=== PATIENT | male | born 1975 | race Caucasian/White ===

== ENCOUNTER 2019-08-14 08:16 | Observation (INO) | payer BC, SELFPAY ==
[2019-08-14] VITALS (25 sets, daily range): BP systolic 92–159; BP diastolic 44–116; PULSE 77–268; RESP 11–28; TEMP 36.4; O2SAT 95–99; BMI 65.9
--- NOTE | 2019-08-14 08:21 | ED_ITS ---
Entered by Melody Kan, acting as scribe for Omid Bang DO HPI - SOB/Dyspnea General: Chief Complaint: Chest Pain Stated Complaint: SOB Time Seen by Provider: 08/14/19 08:21 Source: patient and RN notes reviewed Mode of arrival: wheelchair Limitations: no limitations History of Present Illness: HPI Narrative: 44 yo male presents to ED with complaints of shortness of breath. He said he has been fighting chest and nasal congestion. He states it feels like his heart isn't beating right. He said he has shortness of breath when he is walking. He denies pain in his chest, describing it as burning in his chest. He said he usually sweats a lot anyway but he is sweating more than normal. He said these symptoms began this morning and he was weak. He said he felt fine yesterday, except for the congestion. MD elicited complaint: shortness of breath, cough, pain with inspiration, chest pain (burning) and anxiety Pertinent past history: other (HTN, heart surgery as a child) Onset (ago): hour(s) (1) Context: recent illness (chest and head congestion) Timing: constant Severity: severe Exacerbating factors: exertion, movement and coughing Relieving factors: nothing Known history of: other (HTN) Associated symptoms: Reports chest pain (described as burning), diaphoresis and palpitations Treatment prior to arrival: none Related Data: Home oxygen amount: none Review of Systems General: Reports: 10 or more systems reviewed and unremarkable except in HPI and below Const: Reports: diaphoresis Card: Reports: chest pain (described as burning) and palpitations [facility] ED PFSH: Social History Smoking and tobacco status: never smoked Physical Exam Const: COMMON NORMALS: oriented x3, no limitations, healthy appearing, alert and well nourished GENERAL APPEARANCE: in distress, anxious and diaphoretic HENMT: COMMON NORMALS: normocephalic, head/scalp atraumatic, hearing grossly normal bilaterally, external ears normal, EAC's normal, TM's normal bilaterally, external nose normal, nasal mucous membranes and turbinates normal, moist oral mucous membranes, oropharynx normal, dentition normal and gingiva normal HEAD & SCALP: normocephalic and atraumatic NOSE: external nose normal and nasal mu cous membranes and turbinates normal EXTERNAL EAR: Yes external ears normal EXTERNAL AUDITORY CANAL: EAC's normal TYMPANIC MEMBRANE: TM's normal bilaterally Eye: COMMON NORMALS: PERRL, EOMs intact bilaterally, conjunctivae normal, no scleral icterus, no papilledema, normal visual ortez by confrontation and fundi normal bilaterally CONJUNCTIVA: Yes conjunctivae normal PUPIL: Yes PERRL DIRECT OPHTHALMOSCOPY: Yes no papilledema and Yes fundi normal bilaterally Neck/C-Spine: COMMON NORMALS: full ROM, no lymphadenopathy, supple, no meningeal signs, no JVD, thyroid normal and no carotid bruits THYROID: thyroid normal Chest: COMMONS NORMALS: inspection of chest normal and palpation of chest normal Resp: COMMON NORMALS: no retractions, no use of accessory muscles, clear to auscultation bilaterally and percussion normal AUSCULTATION: clear to a uscultation bilaterally PERCUSSION: percussion normal Cardio: COMMON NORMALS: no JVD, regular rhythm, S1 normal heart sound, S2 normal heart sound, no gallops, no clicks, no murmurs, no rub and peripheral pulses 2+ throughout RHYTHM: regular rhythm HEART SOUNDS: S1 normal and S2 normal PERIPHERAL PULSES: pulses 2+ throughout GI: COMMON NORMALS: normal to inspection, nondistended, normoactive bowel sounds, soft to palpation, non-tender, no hepatosplenomegaly, no masses and no bruits PALPATION: Yes soft and Yes no hepatosplenomegaly : COMMON NORMALS: Yes no CVA tenderness BLADDER/KIDNEY EXAM: Yes no CVA tenderness Back/Pelvis: COMMON NORMALS: no CVA tenderness, thoracic and lumbar spine normal to inspection, no thoracic nor lumbar tenderness, thoraco-lumbar ROM normal and straight leg raise negative bilaterally Extremity: COMMON NORMALS: normal to inspection, full ROM, normal capillary refill, no joint enlargement, no clubbing, cyanosis or edema, no calf tenderness and no pedal edema Neuro: COMMON NORMALS: oriented x3 SENSORIUM/ORIENTATION: Yes alert MENINGEAL SIGNS: Yes no meningeal signs Skin: COMMON NORMALS: no rashes or lesions noted, no wounds, skin turgor normal, no jaundice, no petechiae and no mottling GENERAL SKIN EXAM: no rashes or lesions noted and turgor normal Course Vital Signs: Vital signs: Vital Signs Temperature 97.6 F 08/14/19 08:30 Pulse Rate 268 H 08/14/19 08:30 Respiratory Rate 22 H 08/14/19 08:30 Blood Pressure 92/44 08/14/19 08:30 Pulse Oximetry 96 08/14/19 08:30 MDM - SOB/Dyspnea Lab Data: Labs: Lab Results 08/14/19 08/14/19 08/14/19 Range/Units 08:31 08:31 08:31 WBC 10.9 H (4.0-10.0) 10^3/ uL RBC 5.78 H (4.1-5.3) 10^6/u L Hgb 13.9 (11.7-16.6) g/dL Hct 46.1 (42.0-52.0) % MCV 79.8 L (80-94) fL MCH 24.0 L (28.0-34.0) pg MCHC 30.2 (30.0-36.0) g/dL RDW 16.0 H (12.1-15.1) % Plt Count 422 H (130-400) 10^3/c mm MPV 10.2 (7.4-10.4) fL Neut % (Auto) 63.4 % Lymph % (Auto) 25.5 % [place] % (Auto) 6.4 % Eos % (Auto) 3.8 % Baso % (Auto) 0.5 % Neut # (Auto) 6.9 (1.8-7.7) 10^3/u L Lymph # (Auto) 2.8 (0.8-4.8) 10^3/u L Marathon # (Auto) 0.7 (0.2-0.9) 10^3/u L Eos # (Auto) 0.4 (0.0-0.8) 10^3/u L Baso # (Auto) 0.1 (0.0-0.1) 10^3/u L Nucleated RBC % (a uto) 0 % Nucleated RBCs # 0.0 /100WBC PT 13.40 H (10.5-13.3) SECO NDS INR 0.99 (0.8-1.2) Sodium 136 (136-145) mmol/L Potassium 3.7 (3.5-5.1) mmol/L Chloride 96 L (98-107) mmol/L Carbon Dioxide 24 (22-29) mmol/L Anion Gap 19.7 H (5-19) BUN 16 (6-20) mg/dL Creatinine 0.9 (0.7-1.2) mg/dL GFR Calculation 90.8 (90-130) mL/min Glucose 209 H (65-115) mg/dL Calcium 10.0 (8.5-10.5) mg/dL Total Bilirubin 0.3 (0.15-1.2) mg/dL AST 39 (0-40) U/L ALT 19 (0-41) U/L Alkaline Phosphata se 91 (40-130) IU/L Troponin T Baselin e (0-15) ng/mL Troponin T 120 Min constantin (0-15) ng/mL Delta Troponin T (0-10) ABS# NT-Pro-B Natriuret Pep 534 H (0-125) pg/mL Total Protein 8.5 (6.6-8.7) g/dL Albumin 4.1 (3.5-5.2) g/dL Globulin 4.4 (1.3-4.6) g/dL 08/14/19 08/14/19 Range/Units 08:31 10:33 WBC (4.0-10.0) 10^3/ uL RBC (4.1-5.3) 10^6/u L Hgb (11.7-16.6) g/dL Hct (42.0-52.0) % MCV (80-94) fL MCH (28.0-34.0) pg MCHC (30.0-36.0) g/dL RDW (12.1-15.1) % Plt Count (130-400) 10^3/c mm MPV (7.4-10.4) fL Neut % (Auto) % Lymph % (Auto) % Marathon % (Auto) % Eos % (Auto) % Baso % (Auto) % Neut # (Auto) (1.8-7.7) 10^3/u L Lymph # (Auto) (0.8-4.8) 10^3/u L Marathon # (Auto) (0.2-0.9) 10^3/u L Eos # (Auto) (0.0-0.8) 10^3/u L Baso # (Auto) (0.0-0.1) 10^3/u L Nucleated RBC % (a uto) % Nucleated RBCs # /100WBC PT (10.5-13.3) SECO NDS INR (0.8-1.2) Sodium (136-145) mmol/L Potassium (3.5-5.1) mmol/L Chloride (98-107) mmol/L Carbon Dioxide (22-29) mmol/L Anion Gap (5-19) BUN (6-20) mg/dL Creatinine (0.7-1.2) mg/dL GFR Calculation (90-130) mL/min Glucose (65-115) mg/dL Calcium (8.5-10.5) mg/dL Total Bilirubin (0.15-1.2) mg/dL AST (0-40) U/L ALT (0-41) U/L Alkaline Phosphata se (40-130) IU/L Troponin T Baselin e 20 H (0-15) ng/mL Troponin T 120 Min constantin 62.87 H (0-15) ng/mL Delta Troponin T 42.87 H* (0-10) ABS# NT-Pro-B Natriuret Pep (0-125) pg/mL Total Protein (6.6-8.7) g/dL Albumin (3.5-5.2) g/dL Globulin (1.3-4.6) g/dL Imaging Data^: CXR: Radiologist's impression: [address] [address] XRay Report Signed Patient: Shira Quesada #: [id number] : 1975Acct#:[id number] Age/Sex: 44 / MADM Date: 08/14/19 Loc: [facility]/Bed: Attending Dr: Ordering Provider/Ordering MD: Omid Bang DO Date of Service: 08/14/19 Procedure(s): XR chest 1V portable [id number] Accession Number(s): [id number] Report Number: [id number] WS: [id number] XR chest 1V portable [id number] REASON FOR EXAM: svt FINDINGS: Cardiomegaly is noted. The lung ortez appear to be adequately aerated no evidence of findings to suggest pulmonary embolus. No pulmonary edema, no pneumonia. The hilum and apices normal. XR/XR chest 1V portable [id number] IMPRESSION: Cardiomegaly. Dictated By:Shay Negrete DO Signed By:Shay Negrete DOSigned Date/Time:08/14/19922 DD/ Discharge Plan Discharge Patient Disposition: Admitted As Inpatient Clinical Impression: Paroxysmal supraventricular tachycardia Chest pain Qualifiers: Chest pain type: other chest pain Qualified Code(s): R07.89 - Other chest pain Condition: Fair Coding Level of Care Code ED Lay Out Machine Operator for Chg Fwd Exam Comprehensive The documentation recorded by the Lucius augustin Valerie R, accurately reflects the service I personally performed and the decisions made by Beti richardson Donald P, DO Aug 14, 2019 08:16
[2019-08-14] MEDS: adenosine 3 mg/mL SDV 2mL 6 MG IVP (08:30)
[2019-08-14] MEDS: adenosine 3 mg/mL SDV 2mL 12 MG IVP ×2 (08:33→08:40)
[2019-08-14] MEDS: amiodarone 50 mg/mL SDV 3 mL 150 MG IVP (08:45)
[2019-08-14] MEDS: midazolam 1 mg/mL INJ 2 mL 4 MG IVP (08:45)
--- NOTE | 2019-08-14 08:50 | XR_ITS ---
WS: [id number] XR chest 1V portable [id number] REASON FOR EXAM: svt FINDINGS: Cardiomegaly is noted. The lung ortez appear to be adequately aerated no evidence of findings to suggest pulmonary embolus. No pulmonary edema, no pneumonia. The hilum and apices normal. XR/XR chest 1V portable [id number] IMPRESSION: Cardiomegaly.
--- NOTE | 2019-08-14 08:51 | ECG_ITS ---
Measurements Intervals [place] Rate: 100 P: 24 [place]: 179 QRS: -4 QRSD: 109 T: 17 QT: 363 QTc: 468 SINUS TACHYCARDIA WITH OCCASIONAL VENTRICULAR PREMATURE COMPLEXES LOW QRS VOLTAGE IN PRECORDIAL LEADS POSSIBLE INFERIOR MYOCARDIAL INFARCTION , PROBABLY OLD No previous ECG available for comparison Electronically Signed On 08-14-2019 16:57:07 COKE WHEELER by Chely Lizama M.D. [id number]
[2019-08-14] MEDS: magnesium sulfate premix 2 GM/50 ML PIGGYBACK IV (08:53)
[2019-08-14 09:09] LABS: Basophils # 0.1 10^3/uL (0.0-0.1); Basophils % 0.5 %; Eosinophils # 0.4 10^3/uL (0.0-0.8); Eosinophils % 3.8 %; Hematocrit 46.1 % (42.0-52.0); Hemoglobin 13.9 g/dL (11.7-16.6); Lymphocytes # 2.8 10^3/uL (0.8-4.8); Lymphocytes % 25.5 %; Mean Corpuscular HGB Conc 30.2 g/dL (30.0-36.0); Mean Corpuscular Volume 79.8 fL (80-94); Mean Platelet Volume 10.2 fL (7.4-10.4); Monocytes # 0.7 10^3/uL (0.2-0.9); Monocytes % 6.4 %; Neutrophils # 6.9 10^3/uL (1.8-7.7); Neutrophils % 63.4 %; Nucleated Red Blood Cells % 0 %; Platelet Count 422 10^3/cmm (130-400); Red Blood Count 5.78 10^6/uL (4.1-5.3); White Blood Count 10.9 10^3/uL (4.0-10.0)
[2019-08-14 09:16] LABS: INR 0.99 (0.8-1.2)
[2019-08-14 09:29] LABS: Troponin(5th) Baseline 20 ng/mL (0-15)
[2019-08-14 09:38] LABS: Alanine Aminotransferase 19 U/L (0-41); Albumin Level 4.1 g/dL (3.5-5.2); Alkaline Phosphatase 91 IU/L (40-130); Anion Gap 19.7 (5-19); Aspartate Amino Transferase 39 U/L (0-40); Blood Urea Nitrogen 16 mg/dL (6-20); Carbon Dioxide 24 mmol/L (22-29); Chloride 96 mmol/L (98-107); Globulin 4.4 g/dL (1.3-4.6); Glomerular Filtration Rate 90.8 mL/min (90-130); Glucose 209 mg/dL (65-115); NT Pro B Type Natriuretic Pept 534 pg/mL (0-125); Potassium 3.7 mmol/L (3.5-5.1); Sodium 136 mmol/L (136-145); Total Bilirubin 0.3 mg/dL (0.15-1.2); Total Protein 8.5 g/dL (6.6-8.7)
--- NOTE | 2019-08-14 10:51 | ECG_ITS ---
Measurements Intervals [place] Rate: 259 P: IN: 0 QRS: 35 QRSD: 192 T: 0 QT: 185 QTc: 384 POSSIBLY SUPRAVENTRICULAR TACHYCARDIA INDETERMINATE AXIS INTRAVENTRICULAR CONDUCTION DELAY [130+ ms QRS DURATION] CRITICAL TEST RESULT No previous ECG available for comparison Electronically Signed On 08-14-2019 18:02:42 INVESTMENT BANKING MANAGER by Chely Lizama M.D. [id number]
[2019-08-14 10:52] LABS: Troponin 5 2HR 62.87 ng/mL (0-15)
[2019-08-14 11:00] LABS: Troponin 5 2HR Delta 42.87 ABS# (0-10)
--- NOTE | 2019-08-14 14:51 | ECG_ITS ---
Measurements Intervals [place] Rate: 78 P: 31 [place]: 178 QRS: -2 QRSD: 102 T: 30 QT: 385 QTc: 439 SINUS RHYTHM LOW QRS VOLTAGE IN PRECORDIAL LEADS [QRS DEFLECTION < 1.0 mV IN CHEST LEADS] POSSIBLE ANTERIOR MYOCARDIAL INFARCTION , PROBABLY OLD [30 ms Q WAVE IN V3/V4, OR R < 0.2 mV IN V4] No previous ECG available for comparison Electronically Signed On 08-14-2019 17:10:47 EDUCATION COUNSELOR by Chely Lizama M.D. [email or web address]
[2019-08-14 15:17] LABS: Troponin 5 6HR 169.5 ng/mL (0-15); Troponin 5 6HR Delta 149.5 ng/L (0-12)
--- NOTE | 2019-08-14 15:29 | PC.CHAP ---
Pastoral Care Encounter/Spiritual Assessment Type of Contact [] Declined shaper hand visit [] Patient/Family/Request visit [] Outpatient visit [] Follow-up visit [] Physician referral [] Code/Alert [] Routine visit [] Staff referral [] Actively dying [] Patient sleeping [] Family support [] [x] Out of room [] Palliative care [] [] Receiving care in room [] Pre-surgical visit [] Trauma [] Long length of stay [] ICU visit [] Other: Relational/Emotional Strength [] Patient feels connected with others/family/visitors/staff [] Distress [] Loneliness/isolation [] Abandonment Spirituality of Patient [] Person of Andra [] Attends Pentecostal of their Andra [] Believes in Prayer [] Reads Bible or Moravian materials [] There are Spiritual issues to be addressed Supervisor Lime Interventions [] Prayer [] Active listening [] Non-anxious presence [] Spiritual/emotional support [] Crisis/trauma care [] Spiritual counseling [] Bereavement support [] Provided bereavement packet [] Provided Bible/devotional materials [] Provided toy/stuffed animal, coloring book to patient or family member [] Provided Communion [] Anointing/[place] [] Salvation [] Completed spiritual assessment [] Other: Impact on Illness or Injury [] Angry [] Fearful [] Anxious [] Often cries [] Exhaustion [] Unable to work [] Unable to attend temple [] Unable to walk/stand [] Unable to read [] Unable to drive [] Unable to eat/drink [] Unable to sleep [] Unable to be with family [] Patient intubated [] Other: Summary Time spent with patient
--- NOTE | 2019-08-14 15:30 | PC.CHAP ---
Pastoral Care Encounter/Spiritual Assessment Type of Contact [] Declined service observer chief visit [] Patient/Family/Request visit [] Outpatient visit [] Follow-up visit [] Physician referral [] Code/Alert [] Routine visit [] Staff referral [] Actively dying [] Patient sleeping [] Family support [] [x] Out of room [] Palliative care [] [] Receiving care in room [] Pre-surgical visit [] Trauma [] Long length of stay [] ICU visit [] Other: Relational/Emotional Strength [] Patient feels connected with others/family/visitors/staff [] Distress [] Loneliness/isolation [] Abandonment Spirituality of Patient [] Person of Andra [] Attends Alevism of their Andra [] Believes in Prayer [] Reads Bible or Protestant materials [] There are Spiritual issues to be addressed Improvement Lead Interventions [] Prayer [] Active listening [] Non-anxious presence [] Spiritual/emotional support [] Crisis/trauma care [] Spiritual counseling [] Bereavement support [] Provided bereavement packet [] Provided Bible/devotional materials [] Provided toy/stuffed animal, coloring book to patient or family member [] Provided Communion [] Anointing/[place] [] Salvation [] Completed spiritual assessment [] Other: Impact on Illness or Injury [] Angry [] Fearful [] Anxious [] Often cries [] Exhaustion [] Unable to work [] Unable to attend muslim [] Unable to walk/stand [] Unable to read [] Unable to drive [] Unable to eat/drink [] Unable to sleep [] Unable to be with family [] Patient intubated [] Other: Summary Time spent with patient
--- NOTE | 2019-08-14 16:03 | P.HP_ITS ---
Providers/Chief Complaint Admitting Physician: Cristina Patel MD Chief Complaint: CHEST PAIN History of Present Illness Damian Quesada is a 44 year old male with PMHx of HTN, Morbid obesity, presents from home for evaluation of acute onset of shortness of breath earlier this morning upon awakening as well as a funny feeling in his chest. He came in by ambulance and was found to have SVT. Per EMS run sheet his blood pressure was 104/54, heart rate was 259, captured on EKG, he was saturating at 95%. He received albuterol nebulizer and IV steroids with minimal improvement. On his arrival to the ED he received 3 doses of adenosine with continued evidence of SVT. He was then shocked x1 with conversion to normal sinus rhythm and started on amiodarone drip. He remains in sinus rhythm during my assessment on his arrival to the ICU. He states that once he was shocked his symptoms have essentially resolved. He denies having had similar symptoms or diagnosis of arrhythmia in the past though describes having had strange sensation in his chest over the past few weeks and describes a history of what sounds like congenital heart disease that required some kind of surgical procedure when he was approximately 8 years old. He followed up with a design engineering specialist until he was 16 and has not had any issues with his heart since then. He is not oxygen dependent at baseline and does not use a CPAP or BiPAP machine. He has had an intermittently productive cough for the past few days but denies any fever/chills, chest pain or discomfort, abdominal pain, nausea/vomiting, increase in his activity level. 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 He is awake, alert and able to provide his own history during my assessment. is at bedside. Vital signs are stable, he is currently 97% on room air, with a blood pressure 135/86, heart rate of 77, normal sinus rhythm. Labs done in the ER indicate a white count of 10.9, normal hemoglobin, potassium of 3.7, normal renal function, blood sugar of 219, BNP of 534, noted troponins with a delta greater than 50, INR of 0.99. Chest x-ray shows cardiomegaly. In addition to adenosine he received magnesium replacement and some IV fluid. Patient states that he sees Dr. Saxena as an outpatient. I have discussed the case with him over the phone and he will take over patient's care in the morning. Patient is being admitted for further hemodynamic status and telemetry monitoring given need for cardioversion earlier. Review of Systems Const: Denies: fever, chills, fatigue or diaphoresis Eyes: Denies: change in vision ENMT: Denies: painful swallowing or dry mouth Card: Denies: chest pain, palpitations, edema, swelling of feet/ankles, lightheadedness, syncope, pre-syncope, shortness of breath on exertion or shortness of breath when lying down Resp: Reports: productive cough (Intermittently); Denies: shortness of breath GI: Denies: abdominal pain, nausea, vomiting, vomiting blood or blood in stool : Denies: painful urination or urinary frequency Musc: Denies: back pain Skin/Breast: Denies: rash Neuro: Denies: numbness in extremities or weakness in extremities Psych: Denies: anxiety Medications/Allergies Home Medications Medication Instructions Recorded Confirmed Last Taken Type ascorbic acid (vitamin C) [Vitamin 250 mg PO DAILY 08/14/19 08/14/19 08/14/19 History C] aspirin 81 mg PO DAILY 08/14/19 08/14/19 08/14/19 History lisinopril 20 mg PO DAILY 08/14/19 08/14/19 08/14/19 History multivitamin 1 tab PO DAILY 08/14/19 08/14/19 08/14/19 History triamterene-hydrochlorothiazid 1 cap PO DAILY 08/14/19 08/14/19 08/14/19 History Allergies Allergy/AdvReac Type Severity Reaction Status Date / Time No Known Allergies Allergy Verified 08/14/19 09:19 PFSH Acute PFSH: Medical History (Updated 08/14/19 @ 18:23 by Cristina Patel MD) Congenital heart anomaly HTN (hypertension) Surgical History LAP-BAND surgery status Family History (Updated 08/14/19 @ 18:18 by Cristina Patel MD) Mother Arrhythmia Social History (Updated 08/14/19 @ 18:18 by Cristina aPtel MD) Smoking and tobacco status: never smoked Alcohol intake: current Alcohol intake frequency: holidays/special occasions only Substance/Drug Use: never Household members: spouse Current occupational status: employed 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 Vitals/I&O/Wt Last Vital Signs Temp 97.6 F 08/14/19 08:30 Pulse 77 08/14/19 15:11 Resp 15 08/14/19 15:11 BP 135/86 08/14/19 15:11 Pulse Ox 97 08/14/19 15:11 Weight last 48 hrs Weight 226.796 kg Physical Exam Const: COMMON NORMALS: no apparent distress and oriented x3 GENERAL APPEARANCE: cooperative and comfortable NUTRITIONAL APPEARANCE: obese morbidly obese ORIENTATION/CONSCIOUSNESS: Yes awake HENMT: COMMON NORMALS: normocephalic, head/scalp atraumatic, hearing grossly normal bilaterally and moist oral mucous membranes HEAD & SCALP: normocephalic and atraumatic Eye: COMMON NORMALS: PERRL, EOMs intact bilaterally and conjunctivae normal CONJUNCTIVA: Yes conjunctivae normal PUPIL: Yes PERRL Neck/C-Spine: COMMON NORMALS: full ROM GENERAL: Yes normal visual inspection and Yes trachea midline OTHER: -short, thick neck Chest: COMMONS NORMALS: inspection of chest normal Resp: COMMON NORMALS: normal respiratory effort, no retractions, no use of accessory muscles and clear to auscultation bilaterally EFFORT & INSPECTION: Yes able to speak in complete sentences, Yes symmetric chest movement and No tachypneic AUSCULTATION: clear to auscultation bilaterally OTHER: - auscultation limited by body habitus Cardio: COMMON NORMALS: regular rate, regular rhythm, S1 normal heart sound and S2 normal heart sound RATE: regular rate RHYTHM: regular rhythm HEART SOUNDS: S1 normal, S2 normal and murmur GI: COMMON NORMALS: normal to inspection, nondistended, normoactive bowel sounds, soft to palpation and non-tender INSPECTION: Yes central obesity PALPATION: Yes soft Back/Pelvis: COMMON NORMALS: thoracic and lumbar spine normal to inspection Extremity: COMMON NORMALS: normal to inspection, full ROM and no clubbing, cyanosis or edema; negative for no pedal edema Neuro: COMMON NORMALS: oriented x3, moves all extremities, no focal motor deficits and no sensory deficits noted Psych: COMMON NORMALS: mental status grossly normal, thought process normal, cooperative, affect normal and speech normal SPEECH: Yes normal speech THOUGHT PROCESS: normal thought process Skin: COMMON NORMALS: no jaundice, no petechiae and no mottling OTHER: - chronic venous stasis of bilateral LEs Data : 08/14/19 08:31 08/14/19 08:31 A&P Assessment and plan (1) Paroxysmal supraventricular tachycardia: -Found to have supraventricular tachycardia on arrival to ED, did not respond to 3 doses of adenosine, subsequently cardioverted -unclear what may have triggered this; no infectious etiology, not anemic, -Subsequently converted to normal sinus rhythm -On amiodarone drip, wean off as tolerated -Telemetry monitoring -Close monitoring of vital signs -Echo ordered, no baseline -May consider cardiology evaluation if recurrent -Check TSH in a.m. -troponins noted with delta > 50 which could be due to cardioversion, no chest pain Status: Acute Code(s): I47.1 - Supraventricular tachycardia (2) HTN (hypertension): -Has known history of hypertension, resume oral antihypertensives -Monitor vital signs Status: Acute Qualifiers: Hypertension type: essential hypertension Qualified Code(s): I10 - Essential (primary) hypertension Code(s): I10 - Essential (primary) hypertension Additional A&P Information -Morbid obesity: BMI > 60 kg/m2 -low salt diet as tolerated -DVT ppx with Lovenox -Dispo: home -Code status: FULL code -ICU admit as CSU overflow Attestations Medical Necessity Statement*: Damian Quesada's hospital stay will require greater than 2 midnights for management of noted supraventricular tachycardia requiring cardioversion and Amiodarone drip; needs continued monitoring of hemodynamic status, telemetry. Time Spent in Patient Care: Greater than 35 minutes (>than 50% of time spent in counselling and/or direct pt care on unit) . Coding Level of Care Code Acute Dock Supervisor for Alexandrag Fwd Diagnoses Paroxysmal supraventricular tachycardia I47.1 HTN (hypertension) I10 Hypertension type: essential hypertension
--- NOTE | 2019-08-14 16:03 | USCV_ITS ---
Damian Quesada Age: 44 Gender: M : 1975 Exam Date: 08/14/2019 16:41 Ordering Phys: Cristina Patel MD Technologist: Christelle Royal [place] [facility] [place]: SVT BP: 155 / 90 HR: 82 Rhythm: Sinus Technical Quality: Technically difficult study MEASUREMENTS (Male / Female) Normal Values 2D ECHO LV Diastolic Diameter PLAX 4.6 cm 4.2 - 5.9 / 3.9 - 5.3 cm LV Systolic Diameter PLAX 3.9 cm LV Chamber Size 6.0 cm IVS Diastolic Thickness 1.4 cm 0.6 - 1.0 / 0.6 - 0.9 cm IVS Systolic Thickness 1.8 cm LVPW Diastolic Thickness 2.4 cm 0.6 - 1.0 / 0.6 - 0.9 cm LVPW Systolic Thickness 3.5 cm RV Chamber Size 5.0 cm LVOT Diameter 2.1 cm LV Ejection Fraction 2D Teich 33.8 % LA Diameter 5.5 cm M-MODE LV Diastolic Diameter MM 5.8 cm 4.2 - 5.9 / 3.9 - 5.3 cm LV Systolic Diameter MM 5.2 cm LV Ejection Fraction MM Teich 23.5 % IVS Diastolic Thickness MM 1.1 cm 0.6 - 1.0 / 0.6 - 0.9 cm IVS Systolic Thickness MM 1.3 cm LVPW Diastolic Thickness MM 1.3 cm 0.6 - 1.0 / 0.6 - 0.9 cm LVPW Systolic Thickness MM 1.6 cm Aortic Annulus Diameter 3.3 cm LA Ao Ratio MM 1.7 MV E Point Septal Separation 1.1 cm DOPPLER AV Peak Velocity 301.0 cm/s LVOT Peak Velocity 99.0 cm/s AV Area Cont Eq vti 1.3 cm squared AV Area Cont Eq pk 1.1 cm squared MV Area PHT 3.5 cm squared Mitral E to A Ratio 3.8 MV E' Velocity 15.0 cm/s Mitral E to MV E' Ratio 8.1 Mitral E to LV E' Lateral Ratio 7.5 Mitral E to LV E' Septal Ratio 8.9 TR Peak Velocity 181.0 cm/s TR Peak Gradient 13.1 mmHg TV Peak E Velocity 66.0 cm/s Right Atrial Pressure 3.0 mmHg Pulmonary Artery Systolic Pressu 16.1 mmHg PV Peak Velocity 60.0 cm/s RV Acceleration Time 0.1 s RV Ejection Time 0.4 s RV AcT/ET 0.3 FINDINGS Left Ventricle Left ventricular cavity not well visualized. Probably moderately to severely decreased left ventricular systolic function. This study is inadequate for assessment of regional wall motion abnormality. Right Ventricle Right ventricle not well visualized. Right ventricular systolic pressure 16.1 mmHg. Right Atrium Right atrium not well visualized. Left Atrium Left atrium not well visualized. Mitral Valve Mitral valve not well visualized. Aortic Valve Aortic valve not well visualized. Moderate aortic valve stenosis, peak velocity 3 m/s, peak gradient 36 mmHg, mean gradient 18.7 mmHg, VALENTIN 1.3 cm squared. Dimensionless valve index of 0.33. Tricuspid Valve Tricuspid valve not well visualized. Pulmonic Valve Pulmonic valve not well visualized. Pericardium No pericardial effusion. Aorta Aorta not well visualized. Ascending aorta measured at 39 mm anteroposteriorly. CONCLUSIONS 1. This is a technically very difficult study. 2. Probably moderately to severely decreased left ventricular systolic function. This study is inadequate for assessment of regional wall motion abnormality. 3. Recommend repeat study with ultrasound enhancing agent. 4. No prior similar studies to compare. Chely Lizama MD (Electronically Signed) Final Date: 14 August 2019 18:24 S
[2019-08-14] MEDS: enoxaparin 40 mg/0.4 mL Syringe SUBCUT (17:39)
[2019-08-14 18:35] LABS: Urine Appearance Clear (CLEAR); Urine Color Yellow (Yellow); pH Urine 6 (5-7)
[2019-08-14 18:36] LABS: Add Urine Culture? No; Add Urine Microscopic? YES; Bacteria Urine TRACE; Bilirubin Urine Neg (NEGATIVE); Blood Urine Neg (Negative); Coarse Granular Casts Urine 0-4 /lpf; Fine Granular Casts Urine 0-4 /lpf; Glucose Urine UA Norm (Normal); Ketones Urine Negative (Negative); Leukocyte Esterase Urine Negative (Negative); Mucus Urine 1+; Nitrate Urine Negative (Negative); Protein Urine 1+ (Negative); Squamous Epithelial Cell Urine RARE (0-5); Urobilinogen Urine Norm (Negative); WBC Urine 0-4 /hpf (0-5)
--- NOTE | 2019-08-14 20:20 | PC.NURSE ---
worklist items completed at 1999 were for different pt. corrections made 2020
[2019-08-15] VITALS (17 sets, daily range): BP systolic 111–178; BP diastolic 70–112; PULSE 69–90; RESP 10–26; TEMP 36.4; O2SAT 90–98; BMI 65.9
[2019-08-15] MEDS: saline nasal spray 44mL Btl 1 SPRAY NASAL (03:07)
[2019-08-15 05:05] LABS: Basophils % 0.3 %; Eosinophils # 0.2 10^3/uL (0.0-0.8); Eosinophils % 1.5 %; Hematocrit 37.6 % (42.0-52.0); Hemoglobin 11.4 g/dL (11.7-16.6); Lymphocytes # 1.7 10^3/uL (0.8-4.8); Lymphocytes % 16.7 %; Mean Corpuscular HGB Conc 30.3 g/dL (30.0-36.0); Mean Corpuscular Hemoglobin 24.1 pg (28.0-34.0); Mean Corpuscular Volume 79.3 fL (80-94); Mean Platelet Volume 10.3 fL (7.4-10.4); Monocytes # 0.5 10^3/uL (0.2-0.9); Monocytes % 5.1 %; Neutrophils # 7.7 10^3/uL (1.8-7.7); Nucleated Red Blood Cells % 0 %; Platelet Count 283 10^3/cmm (130-400); Red Blood Count 4.74 10^6/uL (4.1-5.3); Red Cell Distribution Width 15.9 % (12.1-15.1); White Blood Count 10.1 10^3/uL (4.0-10.0)
[2019-08-15 05:40] LABS: Anion Gap 14.2 (5-19); Blood Urea Nitrogen 12 mg/dL (6-20); Calcium 9.6 mg/dL (8.5-10.5); Carbon Dioxide 26 mmol/L (22-29); Chloride 100 mmol/L (98-107); Glucose 130 mg/dL (65-115); Magnesium 2.1 mg/dL (1.7-2.3); Osmolality Calculated 280 mOsm/kg (285-295); Potassium 4.2 mmol/L (3.5-5.1); Sodium 136 mmol/L (136-145); Thyroid Stimulating Hormone 2.21 uIU/mL (0.27-4.20)
--- NOTE | 2019-08-15 07:46 | P.PN_ITS ---
Subjective Subjective: Interval history: Patient is feeling much better this morning. No chest pain or shortness of breath. Upon further discussion with him he reveals that he has been using Afrin nasal spray consistently twice a day for the past year. He also states that he has been doing a lot more chocolate in the past month. He struggles with some insomnia but no changes with this. He does feel like over the past month he has been having a little more shortness of breath with activity. He has lost about 30 pounds over the past year but still is running around 500 pounds. Vitals/I&O/Wt Last Vital Signs Temp 97.6 F 08/14/19 08:30 Pulse 80 08/15/19 04:00 Resp 24 H 08/15/19 04:00 BP 164/111 08/15/19 04:00 Pulse Ox 98 08/15/19 03:00 08/14/19 08/15/19 08/15/19 22:59 06:59 14:59 Intake Total 960 / 960 Output Total 300 / 300 Balance 660 / 660 Weight last 48 hrs Weight 500 lb Weight 500 lb Physical Exam Narrative: EXAM NARRATIVE: General: No acute distress, Alert. Well nourished. Heart: Regular rate and rhythm. No murmurs, rubs or gallops. Normal capillary refill. Lungs: Clear to auscultation. No wheezes, rhonchi or rales. Abdomen: Positive bowel sounds. Non-tender, non-distended. No hepatosplenomegaly. No gaurding. Extremities: No clubbing, cyanosis, or edema. Negative Julissa's Data : 08/15/19 04:08 08/15/19 04:08 A&P Assessment and plan (1) Paroxysmal supraventricular tachycardia: -Patient was converted in the emergency room. He is still doing well at this time. -Discussed with him the need for dietary changes. -Wean off the amiodarone today. -Start metoprolol twice a day. -Follow-up on echocardiogram performed last night. -Possible discharge home later today or tomorrow. Status: Acute Code(s): I47.1 - Supraventricular tachycardia (2) HTN (hypertension): Status: Acute Qualifiers: Hypertension type: essential hypertension Qualified Code(s): I10 - Essential (primary) hypertension Code(s): I10 - Essential (primary) hypertension (3) Chest pain: Status: Acute Qualifiers: Chest pain type: other chest pain Qualified Code(s): R07.89 - Other chest pain Code(s): R07.9 - Chest pain, unspecified Attestations Medical Necessity Statement*: Patient is a 44-year-old gentleman with first- time episode of SVT. Requiring continued inpatient monitoring and treatment. 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
[2019-08-15] MEDS: multivitamin therapeutic Tablet 1 TAB PO (08:59)
[2019-08-15] MEDS: aspirin 81 mg Chew Tablet PO (08:59)
[2019-08-15] MEDS: lisinopril 20 mg Tablet PO (08:59)
[2019-08-15] MEDS: ascorbic acid 500 mg Tablet 250 MG PO (08:59)
[2019-08-15] MEDS: metoprolol tartrate 50 mg Tablet PO ×2 (09:00→17:10)
--- NOTE | 2019-08-15 12:11 | PC.CHAP ---
Pastoral Care Encounter/Spiritual Assessment Type of Contact [] Declined glaze supervisor visit [] Patient/Family/Request visit [] Outpatient visit [] Follow-up visit [] Physician referral [] Code/Alert [x] Routine visit [] Staff referral [] Actively dying [] Patient sleeping [x] Family support [] [] Out of room [] Palliative care [] [] Receiving care in room [] Pre-surgical visit [] Trauma [] Long length of stay [x] ICU visit [] Other: Relational/Emotional Strength [] Patient feels connected with others/family/visitors/staff [] Distress [] Loneliness/isolation [] Abandonment Spirituality of Patient [x] Person of Andra [x Attends Jain of their Andra [x] Believes in Prayer [x Reads Bible or Jainism materials [] There are Spiritual issues to be addressed Financial Aid Advisor Interventions [x] Prayer [] Active listening [] Non-anxious presence [] Spiritual/emotional support [] Crisis/trauma care [] Spiritual counseling [] Bereavement support [] Provided bereavement packet [] Provided Bible/devotional materials [] Provided toy/stuffed animal, coloring book to patient or family member [] Provided Communion [] Anointing/[place] [] Salvation [x] Completed spiritual assessment [] Other: Impact on Illness or Injury [] Angry [] Fearful [] Anxious [] Often cries [] Exhaustion [] Unable to work [] Unable to attend taoist [] Unable to walk/stand [] Unable to read [] Unable to drive [] Unable to eat/drink [] Unable to sleep [] Unable to be with family [] Patient intubated [] Other: Summary Patients father and present. Patient feeling strong, looking forward to going home. Time spent with patient 25min
[2019-08-15] MEDS: enoxaparin 40 mg/0.4 mL Syringe SUBCUT (17:09)
[2019-08-16] VITALS: BP 127/83; PULSE 85; RESP 24; TEMP 36.9; O2SAT 95
[2019-08-16 04:00] VITALS: BP 145/89; PULSE 76; RESP 20; TEMP 36.8; O2SAT 95
[2019-08-16 04:13] LABS: Basophils % 0.4 %; Eosinophils # 0.3 10^3/uL (0.0-0.8); Eosinophils % 3.3 %; Hematocrit 36.8 % (42.0-52.0); Hemoglobin 11.2 g/dL (11.7-16.6); Lymphocytes # 1.6 10^3/uL (0.8-4.8); Lymphocytes % 16.3 %; Mean Corpuscular HGB Conc 30.4 g/dL (30.0-36.0); Mean Corpuscular Hemoglobin 23.3 pg (28.0-34.0); Mean Corpuscular Volume 76.5 fL (80-94); Mean Platelet Volume 10.1 fL (7.4-10.4); Monocytes # 0.6 10^3/uL (0.2-0.9); Monocytes % 6.6 %; Neutrophils % 73.2 %; Nucleated Red Blood Cells % 0 %; Platelet Count 279 10^3/cmm (130-400); Red Blood Count 4.81 10^6/uL (4.1-5.3); Red Cell Distribution Width 15.9 % (12.1-15.1); White Blood Count 9.6 10^3/uL (4.0-10.0)
[2019-08-16 06:00] VITALS: BMI 65.9
--- NOTE | 2019-08-16 06:48 | P.DS_ITS ---
Discharge Providers Date of Admission: 08/15/19 07:46 Date of Discharge: August 16, 2019 Attending Provider at Admission: Cristina Patel MD Attending Provider at Discharge: Ilya Saxena MD Primary Care Provider: Ilya Saxena MD Diagnoses at Discharge Discharge Diagnosis (1) Paroxysmal supraventricular tachycardia: Status: Acute (2) HTN (hypertension): Status: Acute Qualifiers: Hypertension type: essential hypertension Qualified Code(s): I10 - Essential (primary) hypertension (3) Chest pain: Status: Acute Qualifiers: Chest pain type: other chest pain Qualified Code(s): R07.89 - Other chest pain Reason for Visit Reason for Visit: Reason For Visit: CHEST PAIN Hospital Course Discharge Summary: Patient is mid to the hospital for SVT. This was not controlled with adenosine in the ER so he had to have electrocardioversion which was successful. Patient was initially started on amiodarone drip. He was transitioned to metoprolol 50 mg twice a day. This controlled his heart rate very nicely. Tolerated it well. Blood pressure is well controlled. Upon further questioning it appears he has been doing quite a bit of Afrin for the past year and in the past month is been doing a lot more chocolate in his diet. Patient is going to eliminate these and work aggressively at losing weight with diet and exercise. He had an echocardiogram performed which was a very poor and limited study. Suggested moderate to severe reduced ejection fraction. I discussed with him further testing here in the hospital or consultation with cardiology as an outpatient. He opted for the latter. We will arrange this as an outpatient in the clinic. Patient is given precautions to call if he has any worsening symptoms. He will follow-up with me closely in the clinic in the next week. Discharge Data Data Completed and Pending: Completed Studies During Hospitalization Category Date Time Status XR chest 1V demian ble [id number] Stat Exams 08/14/19 08:50 Completed CV echo complete* [id number] Routine Ultrasound 08/14/19 16:03 Completed Pending at discharge Category Date Time Status Complete Blood Co unt w/Auto AM LABS Lab 08/17/19 04:00 Ordered Labs from last 24 hours 08/16/19 03:20 WBC 9.6 RBC 4.81 Hgb 11.2 L Hct 36.8 L MCV 76.5 L MCH 23.3 L MCHC 30.4 RDW 15.9 H Plt Count 279 MPV 10.1 Neut % (Auto) 73.2 Lymph % (Auto) 16.3 Barry % (Auto) 6.6 Eos % (Auto) 3.3 Baso % (Auto) 0.4 Neut # (Auto) 7.0 Lymph # (Auto) 1.6 Barry # (Auto) 0.6 Eos # (Auto) 0.3 Baso # (Auto) 0.0 Nucleated RBC % (a uto) 0 Nucleated RBCs # 0.0 Vitals: Last Vital Signs Temp 98.3 F 08/16/19 04:00 Pulse 76 08/16/19 04:00 Resp 20 H 08/16/19 04:00 BP 145/89 08/16/19 04:00 Pulse Ox 95 08/16/19 04:00 Discharge Plan Discharge Patient Disposition: Home, Self-Care Condition: Fair Prescriptions: New metoprolol tartrate 50 mg Tablet 50 mg PO BID Qty: 60 RF: 11 Continued multivitamin Tablet 1 tab PO DAILY RF: 0 lisinopril 20 mg tablet 20 mg PO DAILY RF: 0 triamterene-hydrochlorothiazid 37.5-25 mg capsule 1 cap PO DAILY RF: 0 Vitamin C 500 mg Tablet 250 mg PO DAILY RF: 0 aspirin 81 mg Tablet,Chewable 81 mg PO DAILY RF: 0 Discharge Orders: Discharge Order (Routine); Ordered 08/16/19 Ordered By: Ilya Saxena Referrals: Ilya Saxena MD [Primary Care Provider] - 4-7 days Discharge Diet: Low Salt Discharge Activity: Resume usual activity Activity Restrictions/Additional Instructions: -Resume all your home medications the same at home -New medication metoprolol 50 mg twice a day to help control your heart rate and blood pressure. -We will arrange referral for you to cardiology for further evaluation of your heart. -Call if you have increasing chest pain, shortness of breath, or fast heart rate. -Try to monitor your blood pressure and heart rate at home and record these and bring these with you to your appointment with Dr. Saxena in 1 week. -Avoid the use of Afrin, chocolate, salt, cough and cold medications as we had discussed. 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
[2019-08-16 07:25] VITALS: BP 118/85; PULSE 76; RESP 18; TEMP 36.3; O2SAT 96
[2019-08-16 07:52] VITALS: BP 118/85; PULSE 76; RESP 18; TEMP 36.3; O2SAT 96
[2019-08-16 16:00] VITALS: BP 118/85; PULSE 76; RESP 18; TEMP 36.3; O2SAT 96
== END 2019-08-16 10:00 | disposition home or self-care (01) | DRG 309 ==
LOC: ER 12:13 → ICU 14:56 → MEDSURG 08-16 06:48 → ICU 08-20 13:28
PROVIDERS: Admitting Provider Family Medicine; Emergency Provider Family Medicine; Family Provider Family Medicine; PCP Family Medicine; Visit Provider Family Medicine
DX: I47.1 Supraventricular tachycardia (principal); I10 Essential (primary) hypertension; E66.01 Morbid (severe) obesity due to excess calories; Z68.44 Body mass index [BMI] 60.0-69.9, adult; Z79.82 Long term (current) use of aspirin
CPT/HCPCS: 12345; 36415; 71045; 80048; 80053; 81001; 83735; 83880; 84443; 84484; 85025; 85610; 93005; 93306; 96365; 96367; 96368; 96372; 96374; 96375; 99283; 99285; G0378; J0153; J0282; J1650; J2250; J3475

== ENCOUNTER 2019-11-12 04:23 | Inpatient (IN) | payer BC, SELFPAY ==
[2019-11-12] VITALS (9 sets, daily range): BP systolic 121–146; BP diastolic 79–102; PULSE 84–110; RESP 16–30; TEMP 36.4–36.9; O2SAT 92–97; BMI 68.1
--- NOTE | 2019-11-12 04:57 | XR_ITS ---
WS: [id number] CHEST XRAY TECHNIQUE: Portable chest. CLINICAL INFORMATION: cough COMPARISON: August 14, 2019 FINDINGS: Shallow inspiration. Heart: Cardiomegaly. Lungs: Small left greater than right pleural effusions. Mild pulmonary vascular congestion. Bones: Normal visualized bony structures. XR/XR chest 1V portable [id number] IMPRESSION: 1. Cardiomegaly with mild pulmonary vascular congestion. 2. Small left greater than right pleural effusions. 3. Partial opacification left lower lobe likely due to pleural fluid or atelec tasis.
--- NOTE | 2019-11-12 05:12 | W.ED.GENADLT ---
Documented by User: Marie Castañeda 11/12/19 05:23 HPI - General Adult General: Chief complaint: General Medical Stated complaint: FLUID RETENTION; UNABLE TO URINATE Time Seen by Provider: 11/12/19 04:25 History of Present Illness: HPI narrative: Damian is a very nice 44-year-old male who comes in complaining of diffuse edema from water retention as well as having of difficult time urinating as the tissues around his penis have swollen. He states he is unable to feel his penis and he is requesting a catheter because he does not want to urinate on himself. He states Dr. Claros is been trying to work with his medicines to help him stop retaining so much fluid but he states what has been happening up to this point is only made things worse. He is denying any chest pain but does have shortness of breath with exertion. Associated symptoms: Reports dyspnea; Deny chest pain, confusion, diaphoresis, headache(s), malaise, nausea, rash, palpitations, syncope or vomiting Review of Systems Const: Denies: fever(s), chills, body aches, fatigue, malaise, night sweats or diaphoresis Eyes: Denies: change in vision, blurry vision or blind spots ENMT: Denies: throat pain, odynophagia, hoarseness, ear or mastoid pain, ear discharge, change in hearing or nasal discharge Card: Reports: edema, swelling of feet/ankles and orthopnea; Denies: chest pain, palpitations, irregular heart rhythm, lightheadedness, syncope, pre-syncope or dyspnea on exertion Resp: Reports: dyspnea; Denies: productive cough, non-productive cough, wheezing, hemoptysis or chest congestion GI: Denies: abdominal pain, nausea, vomiting, hematemesis, coffee ground emesis, heartburn, diarrhea, constipation, GI cramping, hematochezia or melena : Denies: flank pain, dysuria, urinary frequency, urinary urgency, oliguria, urinary incontinence or hematuria Musc: Denies: neck pain, back pain, extremity pain, extremity swelling, joint pain, joint swelling, joint redness, joint warmth or joint stiffness Skin/Breast: Denies: rash, pruritus, erythema, skin tenderness or jaundice Neuro: Denies: headache(s), numbness in extremities, weakness in extremities, sensory changes, lack of coordination, difficulty walking, dizziness, vertigo, confusion or Slurred speech present Endo: Denies: polyuria, polydipsia, tired all the time, cold intolerance, excessive sweating, flushing, hot flashes or heat intolerance Parker/Lymph: Denies: easy bruising, easy bleeding, petechiae, purpura or enlarged lymph nodes All/Imm: Denies: urticaria, throat swelling, tongue swelling, facial swelling or acute wheezing PFSH ED PFSH: Medical History Congestive heart failure HTN (hypertension) SVT (supraventricular tachycardia) Surgical History LAP-BAND surgery status Family History Mother Arrhythmia Social History Smoking and tobacco status: never smoked Alcohol intake: current Alcohol intake frequency: holidays/special occasions only Household members: spouse Current occupational status: employed 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 Physical Exam Const: COMMON NORMALS: no acute distress, patient oriented x3, no limitations and well nourished EXAM LIMITATIONS: no altered mental status GENERAL APPEARANCE: cooperative, well kempt and well developed HENMT: COMMON NORMALS: normocephalic, atraumatic, hearing grossly normal bilaterally, external ears normal, EAC's normal, Normal external nose present and moist oral mucous membranes HEAD & SCALP: normal to inspection, normocephalic and atraumatic FACE & SINUS: normal facial exam and face symmetric NOSE: Normal external nose present and Normal nares present EXTERNAL EAR: Yes external ears normal EXTERNAL AUDITORY CANAL: EAC's normal MOUTH: Normal oral and palatal mucosa present, lip normal and tongue normal Eye: COMMON NORMALS: Equal, round and reactive pupils present, EOMs intact bilaterally, conjunctivae normal and no scleral icterus GENERAL EYE: appearance normal, both eyes and all related structures ALIGNMENT: Yes alignment normal PERIORBITAL: periorbital findings normal EYELID: eyelids normal CONJUNCTIVA: Yes conjunctivae normal SCLERA: sclerae normal PUPIL: Yes Equal, round and reactive pupils present Neck/C-Spine: COMMON NORMALS: full ROM, no lymphadenopathy, supple, no meningeal signs and no JVD GENERAL: Yes normal visual inspection and Yes trachea midline CERVICAL SPINE: Yes cervical ROM normal Chest: COMMONS NORMALS: normal inspection of the chest and normal palpation of entire chest wall Resp: COMMON NORMALS: normal respiratory effort, No retractions, No use of accessory muscles and clear to auscultation bilaterally EFFORT & INSPECTION: Yes able to speak in complete sentences AUSCULTATION: clear to auscultation bilaterally, no crackles, no rales, no rhonchi and no wheezes Cardio: COMMON NORMALS: no JVD, regular rate, regular rhythm, S1 normal heart sound present, S2 normal heart sound present, No gallops present (Cardio), No clicks present (Cardio), No murmurs present (Cardio) and No rub (Cardio) RATE: regular rate RHYTHM: regular rhythm HEART SOUNDS: S1 normal heart sound present, S2 normal heart sound present, no click, no gallops, no murmurs and no rubs PERIPHERAL PULSES: other (Diffuse edema of lower extremities and abdominal wall) GI: COMMON NORMALS: Soft to palpation, non-tender, No hepatosplenomegaly present and no masses PALPATION: Yes Soft to palpation, No Tenderness to palpation present (GI), No Guarding due to palpation present (GI), No Rigid due to palpation, Yes No hepatosplenomegaly present, No Hernia present, No Palpable mass present and No Pulsatile mass present : COMMON NORMALS: Yes no CVA tenderness BLADDER/KIDNEY EXAM: Yes no CVA tenderness Back/Pelvis: COMMON NORMALS: no CVA tenderness, thoracic and lumbar spine normal to inspection, no thoracic nor lumbar tenderness and thoraco-lumbar ROM normal Extremity: COMMON NORMALS: normal to inspection, full ROM, capillary refill normal, no joint enlargement, no clubbing, cyanosis or edema and no calf tenderness Neuro: COMMON NORMALS: patient oriented x3, CN's II-XII intact bilaterally, moves all extremities, no focal motor deficits and no sensory deficits noted MENINGEAL SIGNS: Yes no meningeal signs SPEECH: speech normal Psych: COMMON NORMALS: mental status grossly normal, Normal thought process present, cooperative, normal affect, speech normal and activity/motor behavior normal APPEARANCE: Yes well kempt SPEECH: Yes normal speech THOUGHT PROCESS: Normal thought process present Skin: COMMON NORMALS: no rashes or lesions noted, turgor normal, no jaundice, no petechiae and no mottling GENERAL SKIN EXAM: no rashes or lesions noted and turgor normal Course Vital Signs: Vital signs: Vital Signs Temperature 97.8 F 11/14/19 07:05 Pulse Rate 94 11/14/19 07:05 Respiratory Rate 20 H 11/14/19 07:05 Blood Pressure 119/79 11/14/19 07:05 Pulse Oximetry 96 11/14/19 07:05 [facility] - General Adult Lab Data: Labs: Lab Results 11/12/19 11/12/19 11/12/19 Range/Units 05:15 05:15 05:15 WBC 9.0 (4.0-10.0) 10^3/ uL RBC 5.06 (4.1-5.3) 10^6/u L Hgb 11.8 (11.7-16.6) g/dL Hct 39.2 L (42.0-52.0) % MCV 77.5 L (80-94) fL MCH 23.3 L (28.0-34.0) pg MCHC 30.1 (30.0-36.0) g/dL RDW 18.1 H (12.1-15.1) % Plt Count 398 (130-400) 10^3/c mm MPV 10.1 (7.4-10.4) fL Neut % (Auto) 73.3 % Lymph % (Auto) 16.0 % [place] % (Auto) 7.3 % Eos % (Auto) 2.6 % Baso % (Auto) 0.6 % Neut # (Auto) 6.6 (1.8-7.7) 10^3/u L Lymph # (Auto) 1.4 (0.8-4.8) 10^3/u L [place] # (Auto) 0.7 (0.2-0.9) 10^3/u L Eos # (Auto) 0.2 (0.0-0.8) 10^3/u L Baso # (Auto) 0.1 (0.0-0.1) 10^3/u L Nucleated RBC % (a uto) 0 % Nucleated RBCs # 0.0 /100WBC PT (10.5-13.3) SECO NDS INR (0.8-1.2) Sodium 139 (136-145) mmol/L Potassium 3.5 (3.5-5.1) mmol/L Chloride 99 (98-107) mmol/L Carbon Dioxide 24 (22-29) mmol/L Anion Gap 19.5 H (5-19) BUN 15 (6-20) mg/dL Creatinine 0.9 (0.7-1.2) mg/dL GFR Calculation 90.8 (90-130) mL/min Glucose 121 H (65-115) mg/dL Estimat Average Gl ucose Hemoglobin A1c (4.0-6.0) % Calculated Osmolal ity 286 (285-295) mOsm/k g Calcium 9.9 (8.5-10.5) mg/dL Phosphorus (2.5-4.5) mg/dL Magnesium 1.9 (1.7-2.3) mg/dL Total Bilirubin 0.7 (0.15-1.2) mg/dL AST 44 H (0-40) U/L ALT 23 (0-41) U/L Alkaline Phosphata se 71 (40-130) IU/L Troponin I 6 Hour (0-15) ng/mL Troponin I Hi Sens Del (0-12) ng/L Troponin T Baselin e 29 H (0-15) ng/mL Troponin T 120 Min ewiiaapaayp (0-15) ng/mL Delta Troponin T (0-10) ABS# NT-Pro-B Natriuret Pep 5108 H (0-125) pg/mL Total Protein 7.7 (6.6-8.7) g/dL Albumin 3.8 (3.5-5.2) g/dL Globulin 3.9 (1.3-4.6) g/dL Urine Color (Yellow) Urine Appearance (CLEAR) Urine pH (5-7) Ur Specific Gravit y (1.005-1.030) Urine Protein (Negative) Urine Glucose (UA) (Normal) Urine Ketones (Negative) Urine Blood (Negative) Urine Nitrate (Negative) Urine Bilirubin (NEGATIVE) Urine Urobilinogen (Negative) mg/dL Ur Leukocyte Juanita ase (Negative) Urine RBC (0-2) /hpf Urine WBC (0-5) /hpf Ur Squamous Epith Cells (0-5) Urine Bacteria (NONE) Hyaline Casts Urine Mucus 11/12/19 11/12/19 11/12/19 Range/Units 05:15 07:04 07:19 WBC (4.0-10.0) 10^3/ uL RBC (4.1-5.3) 10^6/u L Hgb (11.7-16.6) g/dL Hct (42.0-52.0) % MCV (80-94) fL MCH (28.0-34.0) pg MCHC (30.0-36.0) g/dL RDW (12.1-15.1) % Plt Count (130-400) 10^3/c mm MPV (7.4-10.4) fL Neut % (Auto) % Lymph % (Auto) % [place] % (Auto) % Eos % (Auto) % Baso % (Auto) % Neut # (Auto) (1.8-7.7) 10^3/u L Lymph # (Auto) (0.8-4.8) 10^3/u L [place] # (Auto) (0.2-0.9) 10^3/u L Eos # (Auto) (0.0-0.8) 10^3/u L Baso # (Auto) (0.0-0.1) 10^3/u L Nucleated RBC % (a uto) % Nucleated RBCs # /100WBC PT (10.5-13.3) SECO NDS INR (0.8-1.2) Sodium (136-145) mmol/L Potassium (3.5-5.1) mmol/L Chloride (98-107) mmol/L Carbon Dioxide (22-29) mmol/L Anion Gap (5-19) BUN (6-20) mg/dL Creatinine (0.7-1.2) mg/dL GFR Calculation (90-130) mL/min Glucose (65-115) mg/dL Estimat Average Gl ucose 160 Hemoglobin A1c 7.2 H (4.0-6.0) % Calculated Osmolal ity (285-295) mOsm/k g Calcium (8.5-10.5) mg/dL Phosphorus (2.5-4.5) mg/dL Magnesium (1.7-2.3) mg/dL Total Bilirubin (0.15-1.2) mg/dL AST (0-40) U/L ALT (0-41) U/L Alkaline Phosphata se (40-130) IU/L Troponin I 6 Hour (0-15) ng/mL Troponin I Hi Sens Del (0-12) ng/L Troponin T Baselin e (0-15) ng/mL Troponin T 120 Min ewiiaapaayp 25.08 H (0-15) ng/mL Delta Troponin T -3.92 L (0-10) ABS# NT-Pro-B Natriuret Pep (0-125) pg/mL Total Protein (6.6-8.7) g/dL Albumin (3.5-5.2) g/dL Globulin (1.3-4.6) g/dL Urine Color Yellow (Yellow) Urine Appearance Clear (CLEAR) Urine pH 5.0 (5-7) Ur Specific Gravit y 1.020 (1.005-1.030) Urine Protein 1+ H (Negative) Urine Glucose (UA) Norm (Normal) Urine Ketones Negative (Negative) Urine Blood Neg (Negative) Urine Nitrate Negative (Negative) Urine Bilirubin Neg (NEGATIVE) Urine Urobilinogen Norm (Negative) mg/dL Ur Leukocyte Juanita ase Negative (Negative) Urine RBC None (0-2) /hpf Urine WBC None (0-5) /hpf Ur Squamous Epith Cells 0-4 H (0-5) Urine Bacteria 1+ H (NONE) Hyaline Casts 0-4 H Urine Mucus 3+ 11/12/19 11/13/19 11/13/19 Range/Units 11:05 05:10 05:10 WBC 10.0 (4.0-10.0) 10^3/ uL RBC 4.87 (4.1-5.3) 10^6/u L Hgb 11.4 L (11.7-16.6) g/dL Hct 37.4 L (42.0-52.0) % MCV 76.8 L (80-94) fL MCH 23.4 L (28.0-34.0) pg MCHC 30.5 (30.0-36.0) g/dL RDW 17.8 H (12.1-15.1) % Plt Count 369 (130-400) 10^3/c mm MPV 9.9 (7.4-10.4) fL Neut % (Auto) 75.4 % Lymph % (Auto) 15.4 % [place] % (Auto) 6.8 % Eos % (Auto) 1.7 % Baso % (Auto) 0.5 % Neut # (Auto) 7.6 (1.8-7.7) 10^3/u L Lymph # (Auto) 1.5 (0.8-4.8) 10^3/u L [place] # (Auto) 0.7 (0.2-0.9) 10^3/u L Eos # (Auto) 0.2 (0.0-0.8) 10^3/u L Baso # (Auto) 0.1 (0.0-0.1) 10^3/u L Nucleated RBC % (a uto) 0 % Nucleated RBCs # 0.0 /100WBC PT 15.80 H (10.5-13.3) SECO NDS INR 1.22 H (0.8-1.2) Sodium (136-145) mmol/L Potassium (3.5-5.1) mmol/L Chloride (98-107) mmol/L Carbon Dioxide (22-29) mmol/L Anion Gap (5-19) BUN (6-20) mg/dL Creatinine (0.7-1.2) mg/dL GFR Calculation (90-130) mL/min Glucose (65-115) mg/dL Estimat Average Gl ucose Hemoglobin A1c (4.0-6.0) % Calculated Osmolal ity (285-295) mOsm/k g Calcium (8.5-10.5) mg/dL Phosphorus (2.5-4.5) mg/dL Magnesium (1.7-2.3) mg/dL Total Bilirubin (0.15-1.2) mg/dL AST (0-40) U/L ALT (0-41) U/L Alkaline Phosphata se (40-130) IU/L Troponin I 6 Hour 22.90 H (0-15) ng/mL Troponin I Hi Sens Del -6.10 L (0-12) ng/L Troponin T Baselin e (0-15) ng/mL Troponin T 120 Min ewiia[place]ayp (0-15) ng/mL Delta Troponin T (0-10) ABS# NT-Pro-B Natriuret Pep (0-125) pg/mL Total Protein (6.6-8.7) g/dL Albumin (3.5-5.2) g/dL Globulin (1.3-4.6) g/dL Urine Color (Yellow) Urine Appearance (CLEAR) Urine pH (5-7) Ur Specific Gravit y (1.005-1.030) Urine Protein (Negative) Urine Glucose (UA) (Normal) Urine Ketones (Negative) Urine Blood (Negative) Urine Nitrate (Negative) Urine Bilirubin (NEGATIVE) Urine Urobilinogen (Negative) mg/dL Ur Leukocyte Juanita ase (Negative) Urine RBC (0-2) /hpf Urine WBC (0-5) /hpf Ur Squamous Epith Cells (0-5) Urine Bacteria (NONE) Hyaline Casts Urine Mucus 11/13/19 Range/Units 05:10 WBC (4.0-10.0) 10^3/ uL RBC (4.1-5.3) 10^6/u L Hgb (11.7-16.6) g/dL Hct (42.0-52.0) % MCV (80-94) fL MCH (28.0-34.0) pg MCHC (30.0-36.0) g/dL RDW (12.1-15.1) % Plt Count (130-400) 10^3/c mm MPV (7.4-10.4) fL Neut % (Auto) % Lymph % (Auto) % [place] % (Auto) % Eos % (Auto) % Baso % (Auto) % Neut # (Auto) (1.8-7.7) 10^3/u L Lymph # (Auto) (0.8-4.8) 10^3/u L [place] # (Auto) (0.2-0.9) 10^3/u L Eos # (Auto) (0.0-0.8) 10^3/u L Baso # (Auto) (0.0-0.1) 10^3/u L Nucleated RBC % (a uto) % Nucleated RBCs # /100WBC PT (10.5-13.3) SECO NDS INR (0.8-1.2) Sodium 141 (136-145) mmol/L Potassium 3.8 (3.5-5.1) mmol/L Chloride 99 (98-107) mmol/L Carbon Dioxide 25 (22-29) mmol/L Anion Gap 20.8 H (5-19) BUN 17 (6-20) mg/dL Creatinine 0.8 (0.7-1.2) mg/dL GFR Calculation 104.1 (90-130) mL/min Glucose 108 (65-115) mg/dL Estimat Average Gl ucose Hemoglobin A1c (4.0-6.0) % Calculated Osmolal ity 289 (285-295) mOsm/k g Calcium 9.9 (8.5-10.5) mg/dL Phosphorus 4.6 H (2.5-4.5) mg/dL Magnesium 2.0 (1.7-2.3) mg/dL Total Bilirubin 0.9 (0.15-1.2) mg/dL AST 44 H (0-40) U/L ALT 22 (0-41) U/L Alkaline Phosphata se 67 (40-130) IU/L Troponin I 6 Hour (0-15) ng/mL Troponin I Hi Sens Del (0-12) ng/L Troponin T Baselin e (0-15) ng/mL Troponin T 120 Min ewiiaapaayp (0-15) ng/mL Delta Troponin T (0-10) ABS# NT-Pro-B Natriuret Pep 5159 H (0-125) pg/mL Total Protein 7.0 (6.6-8.7) g/dL Albumin 3.7 (3.5-5.2) g/dL Globulin 3.3 (1.3-4.6) g/dL Urine Color (Yellow) Urine Appearance (CLEAR) Urine pH (5-7) Ur Specific Gravit y (1.005-1.030) Urine Protein (Negative) Urine Glucose (UA) (Normal) Urine Ketones (Negative) Urine Blood (Negative) Urine Nitrate (Negative) Urine Bilirubin (NEGATIVE) Urine Urobilinogen (Negative) mg/dL Ur Leukocyte Juanita ase (Negative) Urine RBC (0-2) /hpf Urine WBC (0-5) /hpf Ur Squamous Epith Cells (0-5) Urine Bacteria (NONE) Hyaline Casts Urine Mucus EKG Data^: EKG 1: Attestation: I personally reviewed and interpreted this EKG as follows: EKG interpretation date: 11/12/19 EKG interpretation time: 05:23 Interpretation: Sinus tachycardia 101 beats a minute, PVCs, nonspecific ST and T wave changes. Computer generated interpretation: Chest X-Ray 11/12/19 04:57 IMPRESSION: 1. Cardiomegaly with mild pulmonary vascular congestion. 2. Small left greater than right pleural effusions. 3. Partial opacification left lower lobe likely due to pleural fluid or atelectasis. Discharge Plan Discharge Patient Disposition: Admitted As Inpatient Admit Provider: Abisai Sánchez Clinical Impression: Congestive heart failure, HTN (hypertension), SVT (supraventricular tachycardia), Morbid obesity with BMI of 60.0-69.9, adult, Pickwickian syndrome Condition: Stable Referrals: Ilya Saxena MD [Primary Care Provider] - Discharge Date/Time: 11/12/19 09:10 Sign Out Sign Out Data: Patient Sign Out occurred on 11/12/19 at 06:41. Patient's care was discussed, and care was transferred from to Sanjiv Lizama DO. Coding Level of Care Code ED Front Desk Assistant for Chg Fwd Exam Comprehensive Documented by User: Sanjiv Lizama DO 11/14/19 07:50 HPI - General Adult General: Chief complaint: General Medical Stated complaint: FLUID RETENTION; UNABLE TO URINATE Time Seen by Provider: 11/12/19 04:25 PFSH ED PFSH: Medical History Congestive heart failure HTN (hypertension) SVT (supraventricular tachycardia) Surgical History LAP-BAND surgery status Family History Mother Arrhythmia Social History Smoking and tobacco status: never smoked Alcohol intake: current Alcohol intake frequency: holidays/special occasions only Household members: spouse Current occupational status: employed 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 Kuhn placed. Patient massively fluid overloaded we will go ahead and admit for IV diuresis. Lab Data: Labs: Lab Results 11/12/19 11/12/19 11/12/19 Range/Units 05:15 05:15 05:15 WBC 9.0 (4.0-10.0) 10^3/ uL RBC 5.06 (4.1-5.3) 10^6/u L Hgb 11.8 (11.7-16.6) g/dL Hct 39.2 L (42.0-52.0) % MCV 77.5 L (80-94) fL MCH 23.3 L (28.0-34.0) pg MCHC 30.1 (30.0-36.0) g/dL RDW 18.1 H (12.1-15.1) % Plt Count 398 (130-400) 10^3/c mm MPV 10.1 (7.4-10.4) fL Neut % (Auto) 73.3 % Lymph % (Auto) 16.0 % [place] % (Auto) 7.3 % Eos % (Auto) 2.6 % Baso % (Auto) 0.6 % Neut # (Auto) 6.6 (1.8-7.7) 10^3/u L Lymph # (Auto) 1.4 (0.8-4.8) 10^3/u L [place] # (Auto) 0.7 (0.2-0.9) 10^3/u L Eos # (Auto) 0.2 (0.0-0.8) 10^3/u L Baso # (Auto) 0.1 (0.0-0.1) 10^3/u L Nucleated RBC % (a uto) 0 % Nucleated RBCs # 0.0 /100WBC PT (10.5-13.3) SECO NDS INR (0.8-1.2) Sodium 139 (136-145) mmol/L Potassium 3.5 (3.5-5.1) mmol/L Chloride 99 (98-107) mmol/L Carbon Dioxide 24 (22-29) mmol/L Anion Gap 19.5 H (5-19) BUN 15 (6-20) mg/dL Creatinine 0.9 (0.7-1.2) mg/dL GFR Calculation 90.8 (90-130) mL/min Glucose 121 H (65-115) mg/dL Estimat Average Gl ucose Hemoglobin A1c (4.0-6.0) % Calculated Osmolal ity 286 (285-295) mOsm/k g Calcium 9.9 (8.5-10.5) mg/dL Phosphorus (2.5-4.5) mg/dL Magnesium 1.9 (1.7-2.3) mg/dL Total Bilirubin 0.7 (0.15-1.2) mg/dL AST 44 H (0-40) U/L ALT 23 (0-41) U/L Alkaline Phosphata se 71 (40-130) IU/L Troponin I 6 Hour (0-15) ng/mL Troponin I Hi Sens Del (0-12) ng/L Troponin T Baselin e 29 H (0-15) ng/mL Troponin T 120 Min ewiia[place]ayp (0-15) ng/mL Delta Troponin T (0-10) ABS# NT-Pro-B Natriuret Pep 5108 H (0-125) pg/mL Total Protein 7.7 (6.6-8.7) g/dL Albumin 3.8 (3.5-5.2) g/dL Globulin 3.9 (1.3-4.6) g/dL Urine Color (Yellow) Urine Appearance (CLEAR) Urine pH (5-7) Ur Specific Gravit y (1.005-1.030) Urine Protein (Negative) Urine Glucose (UA) (Normal) Urine Ketones (Negative) Urine Blood (Negative) Urine Nitrate (Negative) Urine Bilirubin (NEGATIVE) Urine Urobilinogen (Negative) mg/dL Ur Leukocyte Juanita ase (Negative) Urine RBC (0-2) /hpf Urine WBC (0-5) /hpf Ur Squamous Epith Cells (0-5) Urine Bacteria (NONE) Hyaline Casts Urine Mucus 0511/12/19 11/12/19 Range/Units 05:15 07:04 07:19 WBC (4.0-10.0) 10^3/ uL RBC (4.1-5.3) 10^6/u L Hgb (11.7-16.6) g/dL Hct (42.0-52.0) % MCV (80-94) fL MCH (28.0-34.0) pg MCHC (30.0-36.0) g/dL RDW (12.1-15.1) % Plt Count (130-400) 10^3/c mm MPV (7.4-10.4) fL Neut % (Auto) % Lymph % (Auto) % [place] % (Auto) % Eos % (Auto) % Baso % (Auto) % Neut # (Auto) (1.8-7.7) 10^3/u L Lymph # (Auto) (0.8-4.8) 10^3/u L [place] # (Auto) (0.2-0.9) 10^3/u L Eos # (Auto) (0.0-0.8) 10^3/u L Baso # (Auto) (0.0-0.1) 10^3/u L Nucleated RBC % (a uto) % Nucleated RBCs # /100WBC PT (10.5-13.3) SECO NDS INR (0.8-1.2) Sodium (136-145) mmol/L Potassium (3.5-5.1) mmol/L Chloride (98-107) mmol/L Carbon Dioxide (22-29) mmol/L Anion Gap (5-19) BUN (6-20) mg/dL Creatinine (0.7-1.2) mg/dL GFR Calculation (90-130) mL/min Glucose (65-115) mg/dL Estimat Average Gl ucose 160 Hemoglobin A1c 7.2 H (4.0-6.0) % Calculated Osmolal ity (285-295) mOsm/k g Calcium (8.5-10.5) mg/dL Phosphorus (2.5-4.5) mg/dL Magnesium (1.7-2.3) mg/dL Total Bilirubin (0.15-1.2) mg/dL AST (0-40) U/L ALT (0-41) U/L Alkaline Phosphata se (40-130) IU/L Troponin I 6 Hour (0-15) ng/mL Troponin I Hi Sens Del (0-12) ng/L Troponin T Baselin e (0-15) ng/mL Troponin T 120 Min ewiia[place]ayp 25.08 H (0-15) ng/mL Delta Troponin T -3.92 L (0-10) ABS# NT-Pro-B Natriuret Pep (0-125) pg/mL Total Protein (6.6-8.7) g/dL Albumin (3.5-5.2) g/dL Globulin (1.3-4.6) g/dL Urine Color Yellow (Yellow) Urine Appearance Clear (CLEAR) Urine pH 5.0 (5-7) Ur Specific Gravit y 1.020 (1.005-1.030) Urine Protein 1+ H (Negative) Urine Glucose (UA) Norm (Normal) Urine Ketones Negative (Negative) Urine Blood Neg (Negative) Urine Nitrate Negative (Negative) Urine Bilirubin Neg (NEGATIVE) Urine Urobilinogen Norm (Negative) mg/dL Ur Leukocyte Juanita ase Negative (Negative) Urine RBC None (0-2) /hpf Urine WBC None (0-5) /hpf Ur Squamous Epith Cells 0-4 H (0-5) Urine Bacteria 1+ H (NONE) Hyaline Casts 0-4 H Urine Mucus 3+ 11/12/19 11/13/19 11/13/19 Range/Units 11:05 05:10 05:10 WBC 10.0 (4.0-10.0) 10^3/ uL RBC 4.87 (4.1-5.3) 10^6/u L Hgb 11.4 L (11.7-16.6) g/dL Hct 37.4 L (42.0-52.0) % MCV 76.8 L (80-94) fL MCH 23.4 L (28.0-34.0) pg MCHC 30.5 (30.0-36.0) g/dL RDW 17.8 H (12.1-15.1) % Plt Count 369 (130-400) 10^3/c mm MPV 9.9 (7.4-10.4) fL Neut % (Auto) 75.4 % Lymph % (Auto) 15.4 % [place] % (Auto) 6.8 % Eos % (Auto) 1.7 % Baso % (Auto) 0.5 % Neut # (Auto) 7.6 (1.8-7.7) 10^3/u L Lymph # (Auto) 1.5 (0.8-4.8) 10^3/u L [place] # (Auto) 0.7 (0.2-0.9) 10^3/u L Eos # (Auto) 0.2 (0.0-0.8) 10^3/u L Baso # (Auto) 0.1 (0.0-0.1) 10^3/u L Nucleated RBC % (a uto) 0 % Nucleated RBCs # 0.0 /100WBC PT 15.80 H (10.5-13.3) SECO NDS INR 1.22 H (0.8-1.2) Sodium (136-145) mmol/L Potassium (3.5-5.1) mmol/L Chloride (98-107) mmol/L Carbon Dioxide (22-29) mmol/L Anion Gap (5-19) BUN (6-20) mg/dL Creatinine (0.7-1.2) mg/dL GFR Calculation (90-130) mL/min Glucose (65-115) mg/dL Estimat Average Gl ucose Hemoglobin A1c (4.0-6.0) % Calculated Osmolal ity (285-295) mOsm/k g Calcium (8.5-10.5) mg/dL Phosphorus (2.5-4.5) mg/dL Magnesium (1.7-2.3) mg/dL Total Bilirubin (0.15-1.2) mg/dL AST (0-40) U/L ALT (0-41) U/L Alkaline Phosphata se (40-130) IU/L Troponin I 6 Hour 22.90 H (0-15) ng/mL Troponin I Hi Sens Del -6.10 L (0-12) ng/L Troponin T Baselin e (0-15) ng/mL Troponin T 120 Min ewiiaapaayp (0-15) ng/mL Delta Troponin T (0-10) ABS# NT-Pro-B Natriuret Pep (0-125) pg/mL Total Protein (6.6-8.7) g/dL Albumin (3.5-5.2) g/dL Globulin (1.3-4.6) g/dL Urine Color (Yellow) Urine Appearance (CLEAR) Urine pH (5-7) Ur Specific Gravit y (1.005-1.030) Urine Protein (Negative) Urine Glucose (UA) (Normal) Urine Ketones (Negative) Urine Blood (Negative) Urine Nitrate (Negative) Urine Bilirubin (NEGATIVE) Urine Urobilinogen (Negative) mg/dL Ur Leukocyte Juanita ase (Negative) Urine RBC (0-2) /hpf Urine WBC (0-5) /hpf Ur Squamous Epith Cells (0-5) Urine Bacteria (NONE) Hyaline Casts Urine Mucus 11/13/19 Range/Units 05:10 WBC (4.0-10.0) 10^3/ uL RBC (4.1-5.3) 10^6/u L Hgb (11.7-16.6) g/dL Hct (42.0-52.0) % MCV (80-94) fL MCH (28.0-34.0) pg MCHC (30.0-36.0) g/dL RDW (12.1-15.1) % Plt Count (130-400) 10^3/c mm MPV (7.4-10.4) fL Neut % (Auto) % Lymph % (Auto) % [place] % (Auto) % Eos % (Auto) % Baso % (Auto) % Neut # (Auto) (1.8-7.7) 10^3/u L Lymph # (Auto) (0.8-4.8) 10^3/u L [place] # (Auto) (0.2-0.9) 10^3/u L Eos # (Auto) (0.0-0.8) 10^3/u L Baso # (Auto) (0.0-0.1) 10^3/u L Nucleated RBC % (a uto) % Nucleated RBCs # /100WBC PT (10.5-13.3) SECO NDS INR (0.8-1.2) Sodium 141 (136-145) mmol/L Potassium 3.8 (3.5-5.1) mmol/L Chloride 99 (98-107) mmol/L Carbon Dioxide 25 (22-29) mmol/L Anion Gap 20.8 H (5-19) BUN 17 (6-20) mg/dL Creatinine 0.8 (0.7-1.2) mg/dL GFR Calculation 104.1 (90-130) mL/min Glucose 108 (65-115) mg/dL Estimat Average Gl ucose Hemoglobin A1c (4.0-6.0) % Calculated Osmolal ity 289 (285-295) mOsm/k g Calcium 9.9 (8.5-10.5) mg/dL Phosphorus 4.6 H (2.5-4.5) mg/dL Magnesium 2.0 (1.7-2.3) mg/dL Total Bilirubin 0.9 (0.15-1.2) mg/dL AST 44 H (0-40) U/L ALT 22 (0-41) U/L Alkaline Phosphata se 67 (40-130) IU/L Troponin I 6 Hour (0-15) ng/mL Troponin I Hi Sens Del (0-12) ng/L Troponin T Baselin e (0-15) ng/mL Troponin T 120 Min ewiiaapaayp (0-15) ng/mL Delta Troponin T (0-10) ABS# NT-Pro-B Natriuret Pep 5159 H (0-125) pg/mL Total Protein 7.0 (6.6-8.7) g/dL Albumin 3.7 (3.5-5.2) g/dL Globulin 3.3 (1.3-4.6) g/dL Urine Color (Yellow) Urine Appearance (CLEAR) Urine pH (5-7) Ur Specific Gravit y (1.005-1.030) Urine Protein (Negative) Urine Glucose (UA) (Normal) Urine Ketones (Negative) Urine Blood (Negative) Urine Nitrate (Negative) Urine Bilirubin (NEGATIVE) Urine Urobilinogen (Negative) mg/dL Ur Leukocyte Juanita ase (Negative) Urine RBC (0-2) /hpf Urine WBC (0-5) /hpf Ur Squamous Epith Cells (0-5) Urine Bacteria (NONE) Hyaline Casts Urine Mucus EKG Data^: EKG 1: Computer generated interpretation: Chest X-Ray 11/12/19 04:57
[2019-11-12 05:23] LABS: Basophils # 0.1 10^3/uL (0.0-0.1); Basophils % 0.6 %; Eosinophils # 0.2 10^3/uL (0.0-0.8); Eosinophils % 2.6 %; Hematocrit 39.2 % (42.0-52.0); Hemoglobin 11.8 g/dL (11.7-16.6); Lymphocytes # 1.4 10^3/uL (0.8-4.8); Mean Corpuscular HGB Conc 30.1 g/dL (30.0-36.0); Mean Corpuscular Hemoglobin 23.3 pg (28.0-34.0); Mean Corpuscular Volume 77.5 fL (80-94); Mean Platelet Volume 10.1 fL (7.4-10.4); Monocytes # 0.7 10^3/uL (0.2-0.9); Monocytes % 7.3 %; Neutrophils # 6.6 10^3/uL (1.8-7.7); Neutrophils % 73.3 %; Nucleated Red Blood Cells % 0 %; Platelet Count 398 10^3/cmm (130-400); Red Blood Count 5.06 10^6/uL (4.1-5.3); Red Cell Distribution Width 18.1 % (12.1-15.1)
--- NOTE | 2019-11-12 05:35 | PC.NURSE ---
Attempted to place galdamez cath with the help of another nurse without sucess. Patient has too much edema aroung area and penis is inverted,
[2019-11-12 05:40] LABS: Troponin(5th) Baseline 29 ng/mL (0-15)
[2019-11-12 05:48] LABS: Alanine Aminotransferase 23 U/L (0-41); Albumin Level 3.8 g/dL (3.5-5.2); Alkaline Phosphatase 71 IU/L (40-130); Anion Gap 19.5 (5-19); Aspartate Amino Transferase 44 U/L (0-40); Blood Urea Nitrogen 15 mg/dL (6-20); Calcium 9.9 mg/dL (8.5-10.5); Carbon Dioxide 24 mmol/L (22-29); Chloride 99 mmol/L (98-107); Globulin 3.9 g/dL (1.3-4.6); Glomerular Filtration Rate 90.8 mL/min (90-130); Glucose 121 mg/dL (65-115); Magnesium 1.9 mg/dL (1.7-2.3); NT Pro B Type Natriuretic Pept 5108 pg/mL (0-125); Osmolality Calculated 286 mOsm/kg (285-295); Potassium 3.5 mmol/L (3.5-5.1); Sodium 139 mmol/L (136-145); Total Bilirubin 0.7 mg/dL (0.15-1.2); Total Protein 7.7 g/dL (6.6-8.7)
--- NOTE | 2019-11-12 06:57 | ECG_ITS ---
Measurements Intervals [place] Rate: 101 P: 61 OK: 176 QRS: 109 QRSD: 90 T: 43 QT: 365 QTc: 473 SINUS TACHYCARDIA WITH FREQUENT VENTRICULAR PREMATURE COMPLEXES POSSIBLE RIGHT VENTRICULAR HYPERTROPHY NONSPECIFIC T-WAVE ABNORMALITY Compared to ECG 08/14/2019 15:01:38 Ventricular premature complex(es) now present Atrial abnormality now present T-wave abnormality now present Sinus rhythm no longer present Myocardial infarct finding no longer present Electronically Signed On 11-12-2019 20:19:44 CDT by Chely Lizama M.D. [email or web address]
[2019-11-12 07:32] LABS: Troponin 5 2HR 25.08 ng/mL (0-15)
[2019-11-12 07:34] LABS: Troponin 5 2HR Delta -3.92 ABS# (0-10)
[2019-11-12 07:47] LABS: Add Urine Culture? No; Bacteria Urine 1+; Bilirubin Urine Neg (NEGATIVE); Blood Urine Neg (Negative); Glucose Urine UA Norm (Normal); Hyaline Casts Urine 0-4; Ketones Urine Negative (Negative); Leukocyte Esterase Urine Negative (Negative); Mucus Urine 3+; Nitrate Urine Negative (Negative); Protein Urine 1+ (Negative); Squamous Epithelial Cell Urine 0-4 (0-5); Urine Appearance Clear (CLEAR); Urine Color Yellow (Yellow); Urobilinogen Urine Norm (Negative)
--- NOTE | 2019-11-12 09:03 | PM.HP ---
Providers/Chief Complaint Admitting Physician: Abisai Sánhcez MD Primary Care Provider: Ilya Saxena MD Chief Complaint: FLUID RETENTION; UNABLE TO URINATE History of Present Illness Damian Quesada is a 44 year old male with past medical history of systolic CHF and SVT who presents to the emergency department significant increasing shortness of breath. The patient has had increasing edema that has been gradually worsening over the last number of months. He is gotten to the point where medications by mouth have not been sufficiently diuresing him and he now has significant swelling in his abdomen and shortness of breath. He denies any chest pains at this time. He has not had any recent SVT. Review of Systems Narrative: The patient denies headache, dysphagia, chest pains, nausea, vomiting, diarrhea, constipation, dysuria, fevers, cough. He admits to dyspnea at rest and with exertion, difficulty with urination secondary to swelling. Medications/Allergies Home Medications Medication Instructions Recorded Confirmed Last Taken Type ascorbic acid (vitamin C) [Vitamin 500 mg PO DAILY 08/14/19 11/12/19 11/11/19 History C] aspirin 81 mg PO DAILY 08/14/19 11/12/19 11/11/19 History multivitamin 1 tab PO DAILY 08/14/19 11/12/19 11/11/19 History albuterol sulfate 90 mcg/actuation 1 - 2 inh INHALATION Q6H PRN 09/18/19 11/12/19 Unknown History breath activated powder inhaler,sensor fluticasone propionate 50 2 spray INTRANASAL QPM 09/18/19 11/12/19 11/11/19 History mcg/actuation nasal spray,suspension furosemide 20 mg tablet 20 mg PO DAILY PRN 90 Days #90 tab 09/18/19 11/12/19 11/11/19 Rx loratadine 10 mg tablet 10 mg PO DAILY 09/18/19 11/12/19 11/11/19 History omeprazole 20 mg capsule,delayed 20 mg PO DAILY 09/18/19 11/12/19 11/11/19 History release carvedilol 3.125 mg tablet 3.125 mg PO Q12H 90 Days #180 tab 10/24/19 11/12/19 11/04/19 Rx hydrochlorothiazide 25 mg PO DAILY 11/12/19 11/12/19 11/11/19 History Allergies Allergy/AdvReac Type Severity Reaction Status Date / Time No Known Allergies Allergy Verified 08/14/19 09:19 PFSH Acute PFSH: Medical History Congestive heart failure HTN (hypertension) SVT (supraventricular tachycardia) Surgical History LAP-BAND surgery status Family History Mother Arrhythmia Social History Smoking and tobacco status: never smoked Alcohol intake: current Alcohol intake frequency: holidays/special occasions only Household members: spouse Current occupational status: employed 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 Abdomen: Soft, nontender, significant distention and swelling of his abdomen with signs of fluid in the abdominal wall and swelling of his pannus and area around his genitalia. Pitting edema noted up past his umbilicus. Extremities: 3+ pitting edema with compression socks. Urinary Catheter Management^: Kuhn: Cath Placed During This Visit: yes Reason for Continuing Indwelling Catheter: Accurate Measurement of Urinary Output in Critically Ill Patients Urinary Catheter Date of Insertion: 11/12/19 Urinary Catheter Time of Insertion: 07:25 Data : 11/13/19 05:10 11/13/19 05:10 A&P Assessment and plan (1) Morbid obesity with BMI of 60.0-69.9, adult: Status: Acute (2) Pickwickian syndrome: Status: Acute (3) Congestive heart failure: Status: Acute (4) SVT (supraventricular tachycardia): Status: Acute (5) HTN (hypertension): Status: Acute (6) Fluid overload: Status: Acute Additional A&P Information 1. Systolic CHF with fluid overload -the patient has a BNP in the 5100 range and significant fluid overload. The patient has been trying to take Lasix as an outpatient, however has not been able to get the fluid off successfully. He has failed outpatient therapy. For this reason he will be admitted for further diuresis. I will start the patient on Lasix 60 mg 3 times daily and potassium 40 mEq once a day. We will follow his I's and O's closely. Fluid restrictions will be put in place. I expect that he will stay here for the next 2 to 3 days in order to sufficiently diurese him. 2. Bilateral pleural effusions -the patient has bilateral pleural effusions secondary to the above. Continue with diuresis as above. 3. Morbid obesity -patient has significant morbid obesity and this is likely the underlying cause of the above. He will need to work on calorie restriction as an outpatient. 4. Elevated blood sugar -the patient's blood sugar is elevated, so I will check an A1c to see if he has signs of undiagnosed diabetes. 5. Hypertension -patient's blood pressure is stable at this time. 6. History of SVT -patient has a history of SVT, and is wearing a Holter monitor. We will place the patient on telemetry and follow. 7. Obstructive sleep apnea -CPAP while in the hospital. 8. Prophylaxis -Lovenox. Attestations Medical Necessity Statement*: The patient will need to be here for greater than 2 midnights secondary to CHF and fluid overload. The patient will be admitted as an inpatient. Coding Level of Care Code Acute Inside Sales Account Representative for Chg Fwd Diagnoses Morbid obesity with BMI of 60.0-69.9, adult E66.01; Z68.44 Pickwickian syndrome E66.2 Congestive heart failure I50.9 SVT (supraventricular tachycardia) I47.1 HTN (hypertension) I10 Fluid overload E87.70
[2019-11-12] MEDS: FUROsemide 10 mg/mL SDV 10mL 60 MG IVP ×2 (09:39→21:48)
[2019-11-12] MEDS: aspirin 81 mg Chew Tablet PO (09:40)
[2019-11-12] MEDS: enoxaparin 40 mg/0.4 mL Syringe SUBCUT (09:41)
[2019-11-12] MEDS: pantoprazole DR 40 mg Tablet PO (09:42)
--- NOTE | 2019-11-12 09:57 | PC.CHAP ---
Pastoral Care Encounter/Spiritual Assessment Type of Contact [] Declined leather toggler visit [] Patient/Family/Request visit [] Outpatient visit [] Follow-up visit [] Physician referral [] Code/Alert [x] Routine visit [] Staff referral [] Actively dying [] Patient sleeping [] Family support [] [] Out of room [] Palliative care [] [] Receiving care in room [] Pre-surgical visit [] Trauma [] Long length of stay [] ICU visit [] Other: Relational/Emotional Strength [] Patient feels connected with others/family/visitors/staff [] Distress [] Loneliness/isolation [] Abandonment Spirituality of Patient [] Person of Andra [] Attends Religion of their Andra [] Believes in Prayer [] Reads Bible or Methodist materials [] There are Spiritual issues to be addressed Mid Level Business Analyst Interventions [x] Prayer [] Active listening [] Non-anxious presence [] Spiritual/emotional support [] Crisis/trauma care [] Spiritual counseling [] Bereavement support [] Provided bereavement packet [] Provided Bible/devotional materials [] Provided toy/stuffed animal, coloring book to patient or family member [] Provided Communion [] Anointing/[place] [] Salvation [x] Completed spiritual assessment [] Other: Impact on Illness or Injury [] Angry [] Fearful [] Anxious [] Often cries [] Exhaustion [] Unable to work [] Unable to attend jewish [] Unable to walk/stand [] Unable to read [] Unable to drive [] Unable to eat/drink [] Unable to sleep [] Unable to be with family [] Patient intubated [] Other: Summary Patient preparing have breakfast. Prayed for healing and meal. Time spent with patient 5 min
--- NOTE | 2019-11-12 10:29 | PM.CONSULT ---
Providers/Reason For Consult Consulting Physican/Specialty*: Cardiology Reason for Consult*: Volume overload status Decompensated heart failure Shortness of breath Attending Physician: Abisai Sánchez MD Primary Care Provider: Ilya Saxena MD History of Present Illness History of Present Illness Damian Quesada is a 44 year old male past medical history significant for morbid obesity, hypertension, nonischemic cardiomyopathy, supraventricular tachycardia was admitted with worsening of shortness of breath PND orthopnea after failing outpatient optimization of medicine. He was in decompensated systolic heart failure. Dr. Sánchez started him on 60 mg IV twice daily of Lasix. Patient had gained more than 20 pounds in the last few days. He denies chest pain. Review of Systems Const: Denies: fever(s), chills, body aches, fatigue, malaise, night sweats or diaphoresis Eyes: Denies: change in vision, blurry vision or blind spots ENMT: Denies: throat pain, odynophagia, hoarseness, ear or mastoid pain, ear discharge, change in hearing or nasal discharge Card: Reports: edema, swelling of feet/ankles and orthopnea; Denies: chest pain, palpitations, irregular heart rhythm, lightheadedness, syncope, pre-syncope or dyspnea on exertion Resp: Reports: dyspnea; Denies: productive cough, non-productive cough, wheezing, hemoptysis or chest congestion GI: Denies: abdominal pain, nausea, vomiting, hematemesis, coffee ground emesis, heartburn, diarrhea, constipation, GI cramping, hematochezia or melena : Denies: flank pain, dysuria, urinary frequency, urinary urgency, oliguria, urinary incontinence or hematuria Musc: Denies: neck pain, back pain, extremity pain, extremity swelling, joint pain, joint swelling, joint redness, joint warmth or joint stiffness Skin/Breast: Denies: rash, pruritus, erythema, skin tenderness or jaundice Neuro: Denies: headache(s), numbness in extremities, weakness in extremities, sensory changes, lack of coordination, difficulty walking, dizziness, vertigo, confusion or Slurred speech present Endo: Denies: polyuria, polydipsia, tired all the time, cold intolerance, excessive sweating, flushing, hot flashes or heat intolerance Parker/Lymph: Denies: easy bruising, easy bleeding, petechiae, purpura or enlarged lymph nodes All/Imm: Denies: urticaria, throat swelling, tongue swelling, facial swelling or acute wheezing Meds/Allergies Home Medications and Allergies Home Medications Medication Instructions Recorded Confirmed Last Taken Type ascorbic acid (vitamin C) [Vitamin 500 mg PO DAILY 08/14/19 11/12/19 11/11/19 History C] aspirin 81 mg PO DAILY 08/14/19 11/12/19 11/11/19 History multivitamin 1 tab PO DAILY 08/14/19 11/12/19 11/11/19 History albuterol sulfate 90 mcg/actuation 1 - 2 inh INHALATION Q6H PRN 09/18/19 11/12/19 Unknown History breath activated powder inhaler,sensor fluticasone propionate 50 2 spray INTRANASAL QPM 09/18/19 11/12/19 11/11/19 History mcg/actuation nasal spray,suspension furosemide 20 mg tablet 20 mg PO DAILY PRN 90 Days #90 tab 09/18/19 11/12/19 11/11/19 Rx loratadine 10 mg tablet 10 mg PO DAILY 09/18/19 11/12/19 11/11/19 History omeprazole 20 mg capsule,delayed 20 mg PO DAILY 09/18/19 11/12/19 11/11/19 History release carvedilol 3.125 mg tablet 3.125 mg PO Q12H 90 Days #180 tab 10/24/19 11/12/19 11/04/19 Rx hydrochlorothiazide 25 mg PO DAILY 11/12/19 11/12/19 11/11/19 History Allergies Allergy/AdvReac Type Severity Reaction Status Date / Time No Known Allergies Allergy Verified 08/14/19 09:19 Current Medications Current Medications Generic Name Dose Route Start Last Admin Trade Name Freq PRN Reason Stop Dose Admin Aspirin 81 mg 11/12/19 09:15 11/12/19 09:40 Aspirin Chewable PO 81 mg DAILY TRISTON Administration Enoxaparin Sodium 40 mg 11/12/19 09:00 11/12/19 09:41 Lovenox SUBCUT 40 mg Q24H TRISTON Administration Furosemide 60 mg 11/12/19 09:04 11/12/19 09:39 Lasix IVP 60 mg Q12H TRISTON Administration Pantoprazole Sodium 40 mg 11/12/19 09:30 11/12/19 09:42 Protonix PO 40 mg DAILY TRISTON Administration Potassium Chloride 40 meq 11/12/19 09:00 11/12/19 09:40 Klor-Con 10 PO 40 meq DAILY TRISTON Administration PFSH Acute PFSH: Medical History Congestive heart failure HTN (hypertension) SVT (supraventricular tachycardia) Surgical History LAP-BAND surgery status Family History Mother Arrhythmia Social History Smoking and tobacco status: never smoked Alcohol intake: current Alcohol intake frequency: holidays/special occasions only Household members: spouse Current occupational status: employed 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 Morbid obese NECK: No jugular vein distension. HEENT: No cyanosis. No icterus. No pallor. HEART: Regular S1 and S2. No murmur, rub or gallop. LUNGS: Bilateral inspiratory crackle ABDOMEN: Soft, nontender and nondistended. Positive bowel sounds. No guarding, rebound or tenderness. CENTRAL NERVOUS SYSTEM: Grossly nonfocal. EXTREMITIES: Lower extremities with 2+ edema bilaterally. Urinary Catheter Management^: Kuhn: Cath Placed During This Visit: yes Reason for Continuing Indwelling Catheter: Acute Urinary Retention or Obstruction Urinary Catheter Date of Insertion: 11/12/19 Urinary Catheter Time of Insertion: 07:25 A&P Assessment and plan (1) SVT (supraventricular tachycardia): Stable. Status: Acute (2) HTN (hypertension): Well-controlled Status: Acute (3) Congestive heart failure: Patient is in decompensated systolic heart failure. Dr. Sánchez has started patient on 60 mg of IV Lasix. We will follow-up with I's and O's. Further plan will be advised after reviewing the output over next 24 hours. Status: Acute Coding Level of Care Code New Pt Acute Credit Card Specialist for Chg Fwd Patient Type New History Expanded Problem Focused Exam Expanded Problem Focused Medical Decision Making Moderate Complexity Diagnoses SVT (supraventricular tachycardia) I47.1 HTN (hypertension) I10 Congestive heart failure I50.9
[2019-11-13] VITALS (7 sets, daily range): BP systolic 118–144; BP diastolic 78–98; PULSE 85–105; RESP 18–24; TEMP 36.3–36.9; O2SAT 93–98
[2019-11-13 05:28] LABS: Basophils # 0.1 10^3/uL (0.0-0.1); Basophils % 0.5 %; Eosinophils # 0.2 10^3/uL (0.0-0.8); Eosinophils % 1.7 %; Hematocrit 37.4 % (42.0-52.0); Hemoglobin 11.4 g/dL (11.7-16.6); Lymphocytes # 1.5 10^3/uL (0.8-4.8); Lymphocytes % 15.4 %; Mean Corpuscular HGB Conc 30.5 g/dL (30.0-36.0); Mean Corpuscular Hemoglobin 23.4 pg (28.0-34.0); Mean Corpuscular Volume 76.8 fL (80-94); Mean Platelet Volume 9.9 fL (7.4-10.4); Monocytes # 0.7 10^3/uL (0.2-0.9); Monocytes % 6.8 %; Neutrophils # 7.6 10^3/uL (1.8-7.7); Neutrophils % 75.4 %; Nucleated Red Blood Cells % 0 %; Platelet Count 369 10^3/cmm (130-400); Red Blood Count 4.87 10^6/uL (4.1-5.3); Red Cell Distribution Width 17.8 % (12.1-15.1)
[2019-11-13 05:49] LABS: INR 1.22 (0.8-1.2)
[2019-11-13 06:00] LABS: Alanine Aminotransferase 22 U/L (0-41); Albumin Level 3.7 g/dL (3.5-5.2); Alkaline Phosphatase 67 IU/L (40-130); Anion Gap 20.8 (5-19); Aspartate Amino Transferase 44 U/L (0-40); Blood Urea Nitrogen 17 mg/dL (6-20); Calcium 9.9 mg/dL (8.5-10.5); Carbon Dioxide 25 mmol/L (22-29); Chloride 99 mmol/L (98-107); Globulin 3.3 g/dL (1.3-4.6); Glomerular Filtration Rate 104.1 mL/min (90-130); Glucose 108 mg/dL (65-115); NT Pro B Type Natriuretic Pept 5159 pg/mL (0-125); Osmolality Calculated 289 mOsm/kg (285-295); Phosphorus 4.6 mg/dL (2.5-4.5); Potassium 3.8 mmol/L (3.5-5.1); Sodium 141 mmol/L (136-145); Total Bilirubin 0.9 mg/dL (0.15-1.2)
[2019-11-13 07:05] LABS: Estmated Average Glucose 160; Hemoglobin A1C 7.2 % (4.0-6.0)
[2019-11-13] MEDS: loratadine 10 mg Tablet PO (08:12)
[2019-11-13] MEDS: enoxaparin 40 mg/0.4 mL Syringe SUBCUT (08:12)
[2019-11-13] MEDS: aspirin 81 mg Chew Tablet PO (08:12)
[2019-11-13] MEDS: multivitamin therapeutic Tablet 1 TAB PO (08:12)
[2019-11-13] MEDS: pantoprazole DR 40 mg Tablet PO (08:12)
--- NOTE | 2019-11-13 08:20 | PM.PN ---
Subjective Subjective: Interval history: The patient had good diuresis overnight with a reported 2500 mL in the overnight shift and approximately 2800 during the day yesterday. The patient states that his breathing has improved with the diuresis, however he continues to have significant swelling. Vitals/I&O/Wt Last Vital Signs Temp 98.5 F 11/13/19 07:35 Pulse 100 11/13/19 07:35 Resp 22 H 11/13/19 07:35 BP 127/85 11/13/19 07:35 Pulse Ox 98 11/13/19 07:35 11/12/19 11/13/19 11/13/19 22:59 06:59 14:59 Intake Total 240 / 840 Balance 240 / -1085 Weight last 48 hrs Weight 516 lb Physical Exam Narrative: EXAM NARRATIVE: General: Alert and oriented x3 Cardiac: Regular rate and rhythm without murmurs Lungs: Clear to auscultation bilaterally without crackles, wheezes or rhonchi. Abdomen: Soft, nontender, significant distention and swelling of his abdomen with signs of fluid in the abdominal wall and swelling of his pannus and area around his genitalia. Pitting edema noted just below the umbilicus. Overall signs of decreased swelling in the lower abdomen clinically compared to yesterday. Extremities: 3+ pitting edema with compression socks. Urinary Catheter Management^: Kuhn: Cath Placed During This Visit: yes Reason for Continuing Indwelling Catheter: Accurate Measurement of Urinary Output in Critically Ill Patients Urinary Catheter Date of Insertion: 11/12/19 Urinary Catheter Time of Insertion: 07:25 Data : 11/13/19 05:10 11/13/19 05:10 A&P Assessment and plan (1) Morbid obesity with BMI of 60.0-69.9, adult: Status: Acute (2) Pickwickian syndrome: Status: Acute (3) Congestive heart failure: Status: Acute (4) SVT (supraventricular tachycardia): Status: Acute (5) HTN (hypertension): Status: Acute (6) Fluid overload: Status: Acute Additional A&P Information 1. Systolic CHF with fluid overload -the patient's BNP continues to be elevated. His urine output has been around 5 to 6 L based on patient's report over the last 24 hours. He is restricting his fluid intake. He was encouraged to ambulate to help mobilize fluids. We will increase Lasix to 60 mg every 8 hours. I expect that the patient will be here for another 2 to 3 days at this time to help with diuresis sufficiently to be able to continue as an outpatient. I will leave the decision for a repeat echocardiogram up to Dr. Lombardi. I appreciate his consultation. 2. Bilateral pleural effusions -the patient's breathing has improved with his current diuresis. He is still short of breath at rest, however much less than previously. Consider repeat chest x-ray prior to discharge. 3. Morbid obesity -patient has significant morbid obesity and this is likely the underlying cause of the above. He will need to work on calorie restriction as an outpatient. 4. Elevated blood sugar -the patient's A1c is come back elevated at 7.2 consistent with diabetes. We will need to have a discussion regarding care for this. 5. Hypertension -patient's blood pressure is stable at this time. 6. History of SVT -patient has a history of SVT, and is wearing a Holter monitor. We will place the patient on telemetry and follow. 7. Obstructive sleep apnea -CPAP while in the hospital. 8. Prophylaxis -Lovenox. Attestations Medical Necessity Statement*: The patient continues need inpatient therapy for further diuresis of an acute on chronic systolic CHF exacerbation. His stay will cross 2 midnights. Coding Level of Care Code Acute Distribution District Supervisor for Chg Fwd Diagnoses Morbid obesity with BMI of 60.0-69.9, adult E66.01; Z68.44 Pickwickian syndrome E66.2 Congestive heart failure I50.9 SVT (supraventricular tachycardia) I47.1 HTN (hypertension) I10 Fluid overload E87.70
[2019-11-13] MEDS: FUROsemide 10 mg/mL SDV 10mL 60 MG IVP ×2 (08:25→16:09)
--- NOTE | 2019-11-13 10:46 | PC.NURSE ---
pt had a urine output of 2500 throughout shift stacker per neisha TRANSCRIPTIONIST.
--- NOTE | 2019-11-13 11:22 | PC.CHAP ---
Pastoral Care Encounter/Spiritual Assessment Type of Contact [] Declined housekeeper hospital visit [] Patient/Family/Request visit [] Outpatient visit [] Follow-up visit [] Physician referral [] Code/Alert [x] Routine visit [] Staff referral [] Actively dying [] Patient sleeping [] Family support [] [] Out of room [] Palliative care [] [x] Receiving care in room [] Pre-surgical visit [] Trauma [] Long length of stay [] ICU visit [] Other: Relational/Emotional Strength [x] Patient feels connected with others/family/visitors/staff [] Distress [] Loneliness/isolation [] Abandonment Spirituality of Patient [x] Person of Andra [] Attends Yazidi of their Andra [x] Believes in Prayer [] Reads Bible or Presybeterian materials [] There are Spiritual issues to be addressed Rda Interventions [x] Prayer [x] Active listening [x] Non-anxious presence [x] Spiritual/emotional support [] Crisis/trauma care [x] Spiritual counseling [] Bereavement support [] Provided bereavement packet [] Provided Bible/devotional materials [] Provided toy/stuffed animal, coloring book to patient or family member [] Provided Communion [] Anointing/[place] [] Salvation [x] Completed spiritual assessment [] Other: Impact on Illness or Injury [] Angry [] Fearful [] Anxious [] Often cries [] Exhaustion [] Unable to work [] Unable to attend holiness [] Unable to walk/stand [] Unable to read [] Unable to drive [] Unable to eat/drink [] Unable to sleep [] Unable to be with family [] Patient intubated [] Other: Summary FLUID RETENTION; UNABLE TO URINATE, has had tests, feels good, has a good attitude may get to home in a day or two Time spent with patient 10 mins
--- NOTE | 2019-11-13 15:32 | PC.NURSE ---
PT REQUESTED A WALKER DUE TO EXERTION WHEN WALKING, PHYSICIAN NOTIFIED, HE ORDERED FOR A PT EVAL AND TREAT FOR THIS PT AT THIS TIME.
--- NOTE | 2019-11-13 18:22 | PM.PN ---
Subjective Subjective: Interval history: Patient diuresed adequately overall around 2.4 L negative. Vitals/I&O/Wt Last Vital Signs Temp 97.8 F 11/13/19 17:00 Pulse 105 H 11/13/19 17:00 Resp 20 H 11/13/19 17:00 BP 118/78 11/13/19 17:00 Pulse Ox 95 11/13/19 17:00 11/13/19 11/13/19 11/13/19 06:59 14:59 22:59 Intake Total 300 / 300 Output Total 1000 / 1000 900 / 1900 Balance -700 / -700 -900 / -1600 Weight last 48 hrs Weight 516 lb Physical Exam Narrative: EXAM NARRATIVE: GENERAL: Patient is alert, awake and oriented x3. Morbid obese NECK: No jugular vein distension. HEENT: No cyanosis. No icterus. No pallor. HEART: Regular S1 and S2. No murmur, rub or gallop. LUNGS: Bilateral clear today ABDOMEN: Soft, nontender and nondistended. Positive bowel sounds. No guarding, rebound or tenderness. CENTRAL NERVOUS SYSTEM: Grossly nonfocal. EXTREMITIES: Lower extremities with 1+ edema bilaterally. Urinary Catheter Management^: Kuhn: Cath Placed During This Visit: yes Reason for Continuing Indwelling Catheter: Accurate Measurement of Urinary Output in Critically Ill Patients Urinary Catheter Date of Insertion: 11/12/19 Urinary Catheter Time of Insertion: 07:25 Data : 11/13/19 05:10 11/13/19 05:10 A&P Assessment and plan (1) SVT (supraventricular tachycardia): Stable. Status: Acute (2) HTN (hypertension): Well-controlled Status: Acute (3) Congestive heart failure: Diuretics were increased to [address] Sánchez I will increase potassium. Continue to monitor. Overall improving. Status: Acute Attestations Medical Necessity Statement*: Require continuation hospitalization for above defined care Coding Level of Care Code Established Pt Acute Admissions Assistant for Chg Fwd Patient Type Established History Expanded Problem Focused Exam Expanded Problem Focused Medical Decision Making Moderate Complexity Diagnoses SVT (supraventricular tachycardia) I47.1 HTN (hypertension) I10 Congestive heart failure I50.9
[2019-11-13] MEDS: fluticasone nasal spray 16gm Btl 2 EACH INTRANASAL (19:54)
[2019-11-14] VITALS: BP 131/82; PULSE 90; RESP 20; TEMP 36.4; O2SAT 96
[2019-11-14] MEDS: FUROsemide 10 mg/mL SDV 10mL 60 MG IVP ×3 (01:01→16:47)
[2019-11-14 04:00] VITALS: BP 121/82; PULSE 90; RESP 24; TEMP 36.4; O2SAT 93
[2019-11-14 05:49] LABS: Basophils % 0.3 %; Eosinophils # 0.2 10^3/uL (0.0-0.8); Eosinophils % 1.9 %; Hematocrit 37.9 % (42.0-52.0); Hemoglobin 11.4 g/dL (11.7-16.6); Lymphocytes # 1.5 10^3/uL (0.8-4.8); Lymphocytes % 15.1 %; Mean Corpuscular HGB Conc 30.1 g/dL (30.0-36.0); Mean Corpuscular Hemoglobin 23.5 pg (28.0-34.0); Mean Corpuscular Volume 78.1 fL (80-94); Monocytes # 0.8 10^3/uL (0.2-0.9); Monocytes % 7.9 %; Neutrophils # 7.4 10^3/uL (1.8-7.7); Neutrophils % 74.5 %; Nucleated Red Blood Cells % 0 %; Platelet Count 375 10^3/cmm (130-400); Red Blood Count 4.85 10^6/uL (4.1-5.3); Red Cell Distribution Width 17.9 % (12.1-15.1)
[2019-11-14 06:37] LABS: Alanine Aminotransferase 22 U/L (0-41); Albumin Level 3.5 g/dL (3.5-5.2); Alkaline Phosphatase 66 IU/L (40-130); Anion Gap 17.4 (5-19); Aspartate Amino Transferase 42 U/L (0-40); Blood Urea Nitrogen 18 mg/dL (6-20); Calcium 9.8 mg/dL (8.5-10.5); Carbon Dioxide 28 mmol/L (22-29); Chloride 97 mmol/L (98-107); Globulin 3.9 g/dL (1.3-4.6); Glomerular Filtration Rate 104.1 mL/min (90-130); Glucose 104 mg/dL (65-115); Iron 50 ug/dL (59-158); Magnesium 1.9 mg/dL (1.7-2.3); NT Pro B Type Natriuretic Pept 4035 pg/mL (0-125); Osmolality Calculated 285 mOsm/kg (285-295); Percent Saturation 15.1 % (20-50); Potassium 3.4 mmol/L (3.5-5.1); Sodium 139 mmol/L (136-145); Total Iron Binding Capacity 329 mcg/dl; Total Protein 7.4 g/dL (6.6-8.7); Unsaturated Iron Binding 279 ug/dL (112-347)
[2019-11-14 07:05] VITALS: BP 119/79; PULSE 94; RESP 20; TEMP 36.6; O2SAT 96
[2019-11-14] MEDS: loratadine 10 mg Tablet PO (08:02)
[2019-11-14] MEDS: aspirin 81 mg Chew Tablet PO (08:02)
[2019-11-14] MEDS: pantoprazole DR 40 mg Tablet PO (08:02)
[2019-11-14] MEDS: multivitamin therapeutic Tablet 1 TAB PO (08:02)
--- NOTE | 2019-11-14 08:34 | P.PN_ITS ---
Subjective Subjective: Interval history: Patient's breathing is continuing to improve. The patient has had over 5 L over the last 24 hours with a negative fluid balance of just over 3 L. The patient does not have a prior history of diabetes. The patient denies any blood in his stools. Vitals/I&O/Wt Last Vital Signs Temp 97.8 F 11/14/19 07:05 Pulse 94 11/14/19 07:05 Resp 20 H 11/14/19 07:05 BP 119/79 11/14/19 07:05 Pulse Ox 96 11/14/19 07:05 11/13/19 11/14/19 11/14/19 22:59 06:59 14:59 Intake Total 300 / 600 Output Total 2550 / 3550 1400 / 4950 Balance -2250 / -2950 -1400 / -4350 Physical Exam Narrative: EXAM NARRATIVE: General: Alert and oriented x3 Cardiac: Regular rate and rhythm without murmurs Lungs: Clear to auscultation bilaterally without crackles, wheezes or rhonchi. Abdomen: Soft, nontender, significant distention and swelling of his abdomen with signs of fluid in the abdominal wall and swelling of his pannus and area around his genitalia. Pitting edema noted 10 cm below the umbilicus. Overall signs of decreased swelling in the lower abdomen clinically compared to yesterday. Extremities: 3+ pitting edema with compression socks. Urinary Catheter Management^: Kuhn: Cath Placed During This Visit: yes Reason for Continuing Indwelling Catheter: Accurate Measurement of Urinary Output in Critically Ill Patients Urinary Catheter Date of Insertion: 11/12/19 Urinary Catheter Time of Insertion: 07:25 Data : 11/14/19 05:35 11/14/19 05:35 A&P Assessment and plan (1) Morbid obesity with BMI of 60.0-69.9, adult: Status: Acute (2) Pickwickian syndrome: Status: Acute (3) Congestive heart failure: Status: Acute (4) SVT (supraventricular tachycardia): Status: Acute (5) HTN (hypertension): Status: Acute (6) Fluid overload: Status: Acute Additional A&P Information 1. Systolic CHF with fluid overload -the patient's BNP has started to decrease. His urine output was approximately 5 L over the last 24 hours based on patient's report. He is restricting his fluid intake. He was encouraged to ambulate to help mobilize fluids which she has been doing. We will continue with Lasix 60 mg every 8 hours. The patient seems to be improving at this time and may be able to be discharged home tomorrow. I will leave the decision for a repeat echocardiogram up to Dr. Lombardi. I appreciate his consultation. 2. Bilateral pleural effusions -the patient's breathing has improved with his current diuresis. He is still mildly short of breath at rest, however much less than previously. We will get a repeat chest x-ray this afternoon. 3. Morbid obesity -patient has significant morbid obesity and this is likely the underlying cause of the above. He will need to work on calorie restriction as an outpatient. He is considering weight loss surgery. He had a lap band placed previously. 4. Diabetes mellitus type 2-the patient's A1c is come back elevated at 7.2 consistent with diabetes. I had a discussion with him regarding the causes of diabetes and how to treat it. We will likely start him on metformin as an outpatient. 5. Hypertension -patient's blood pressure is stable at this time. 6. History of SVT -patient has a history of SVT, and is wearing a Holter monitor. Continue with telemetry. Need for beta-shilo will be determined by cardiology. 7. Obstructive sleep apnea -CPAP while in the hospital. 8. Iron deficiency anemia -we will get a fecal occult blood test if possible in the hospital. The patient will likely need an outpatient upper and lower endoscopy. I will start iron supplementation this afternoon. 9. Prophylaxis -Lovenox. Attestations Medical Necessity Statement*: The patient continues need inpatient therapy for the above reasons. Possible discharge home tomorrow. Coding Level of Care Code Acute Supervisor Scouring Pads for Chg Fwd Diagnoses Morbid obesity with BMI of 60.0-69.9, adult E66.01; Z68.44 Pickwickian syndrome E66.2 Congestive heart failure I50.9 SVT (supraventricular tachycardia) I47.1 HTN (hypertension) I10 Fluid overload E87.70
--- NOTE | 2019-11-14 09:47 | PC.CHAP ---
Pastoral Care Encounter/Spiritual Assessment Type of Contact [] Declined scrap wheeler visit [] Patient/Family/Request visit [] Outpatient visit [] Follow-up visit [] Physician referral [] Code/Alert [x] Routine visit [] Staff referral [] Actively dying [] Patient sleeping [] Family support [] [] Out of room [] Palliative care [] [] Receiving care in room [] Pre-surgical visit [] Trauma [] Long length of stay [] ICU visit [] Other: Relational/Emotional Strength [] Patient feels connected with others/family/visitors/staff [] Distress [] Loneliness/isolation [] Abandonment Spirituality of Patient [] Person of Andra [] Attends Roman Catholic of their Andra [] Believes in Prayer [] Reads Bible or Jew materials [] There are Spiritual issues to be addressed Director Of Land Acquisition Interventions [x] Prayer [] Active listening [] Non-anxious presence [] Spiritual/emotional support [] Crisis/trauma care [] Spiritual counseling [] Bereavement support [] Provided bereavement packet [] Provided Bible/devotional materials [] Provided toy/stuffed animal, coloring book to patient or family member [] Provided Communion [] Anointing/[place] [] Salvation [x] Completed spiritual assessment [] Other: Impact on Illness or Injury [] Angry [] Fearful [] Anxious [] Often cries [] Exhaustion [] Unable to work [] Unable to attend yazidi [] Unable to walk/stand [] Unable to read [] Unable to drive [] Unable to eat/drink [] Unable to sleep [] Unable to be with family [] Patient intubated [] Other: Summary Patient up and moving around Time spent with patient 5 min
[2019-11-14 10:44] VITALS: BP 127/84; PULSE 111; RESP 20; TEMP 36.7; O2SAT 96
[2019-11-14] MEDS: enoxaparin 40 mg/0.4 mL Syringe SUBCUT (10:53)
[2019-11-14 16:00] VITALS: BP 138/83; PULSE 109; RESP 20; TEMP 36.4; O2SAT 97
[2019-11-14] MEDS: ferrous sulfate EC 325 mg Tablet PO (17:27)
--- NOTE | 2019-11-14 19:07 | PM.PN ---
Subjective Subjective: Interval history: Diuresed well -3.5 L. Overall feeling better. Vitals/I&O/Wt Last Vital Signs Temp 97.5 F L 11/14/19 16:00 Pulse 109 H 11/14/19 16:00 Resp 20 H 11/14/19 16:00 BP 138/83 11/14/19 16:00 Pulse Ox 97 11/14/19 16:00 11/14/19 11/14/19 11/14/19 06:59 14:59 22:59 Intake Total 240 / 240 Output Total 1400 / 4950 500 / 500 1000 / 1500 Balance -1400 / -4350 -500 / -500 -760 / -1260 Physical Exam Narrative: EXAM NARRATIVE: GENERAL: Patient is alert, awake and oriented x3. Morbid obese NECK: No jugular vein distension. HEENT: No cyanosis. No icterus. No pallor. HEART: Regular S1 and S2. No murmur, rub or gallop. LUNGS: Bilateral clear today ABDOMEN: Soft, nontender and nondistended. Positive bowel sounds. No guarding, rebound or tenderness. CENTRAL NERVOUS SYSTEM: Grossly nonfocal. EXTREMITIES: Lower extremities with 1+ edema bilaterally. Urinary Catheter Management^: Kuhn: Cath Placed During This Visit: yes Reason for Continuing Indwelling Catheter: Accurate Measurement of Urinary Output in Critically Ill Patients Urinary Catheter Date of Insertion: 11/12/19 Urinary Catheter Time of Insertion: 07:25 Data : 11/14/19 05:35 11/14/19 05:35 A&P Assessment and plan (1) SVT (supraventricular tachycardia): No more SVT. Status: Acute (2) HTN (hypertension): Optimally controlled Status: Acute (3) Congestive heart failure: Improved much, continue diuresis most likely from tomorrow we will switch him to oral. Status: Acute Attestations Medical Necessity Statement*: Require continuation hospitalization for above defined care Coding Level of Care Code Established Pt Acute Paper Mill Superintendent for Alexandrag Fwd Patient Type Established History Expanded Problem Focused Exam Expanded Problem Focused Medical Decision Making Moderate Complexity Diagnoses SVT (supraventricular tachycardia) I47.1 HTN (hypertension) I10 Congestive heart failure I50.9
[2019-11-14 19:35] VITALS: BP 130/84; PULSE 113; RESP 20; TEMP 36.3; O2SAT 95
[2019-11-15] VITALS: BP 118/78; PULSE 185; RESP 24; TEMP 36.6; O2SAT 98
[2019-11-15 00:18] VITALS: PULSE 75; RESP 17; O2SAT 94
[2019-11-15] MEDS: FUROsemide 10 mg/mL SDV 10mL 60 MG IVP ×2 (00:23→08:22)
[2019-11-15 04:00] VITALS: BP 125/86; PULSE 94; RESP 24; TEMP 36.8; O2SAT 94
[2019-11-15 05:48] LABS: Basophils # 0.1 10^3/uL (0.0-0.1); Basophils % 0.6 %; Eosinophils # 0.2 10^3/uL (0.0-0.8); Eosinophils % 1.8 %; Hematocrit 37.8 % (42.0-52.0); Hemoglobin 11.3 g/dL (11.7-16.6); Lymphocytes # 1.5 10^3/uL (0.8-4.8); Lymphocytes % 17.1 %; Mean Corpuscular HGB Conc 29.9 g/dL (30.0-36.0); Mean Corpuscular Hemoglobin 23.1 pg (28.0-34.0); Mean Corpuscular Volume 77.3 fL (80-94); Mean Platelet Volume 10.1 fL (7.4-10.4); Monocytes # 0.8 10^3/uL (0.2-0.9); Monocytes % 8.4 %; Neutrophils # 6.5 10^3/uL (1.8-7.7); Neutrophils % 71.9 %; Nucleated Red Blood Cells % 0 %; Platelet Count 334 10^3/cmm (130-400); Red Blood Count 4.89 10^6/uL (4.1-5.3); Red Cell Distribution Width 17.9 % (12.1-15.1)
[2019-11-15 06:18] LABS: Alanine Aminotransferase 18 U/L (0-41); Albumin Level 3.7 g/dL (3.5-5.2); Alkaline Phosphatase 63 IU/L (40-130); Anion Gap 17.4 (5-19); Aspartate Amino Transferase 42 U/L (0-40); Blood Urea Nitrogen 19 mg/dL (6-20); Calcium 8.9 mg/dL (8.5-10.5); Carbon Dioxide 29 mmol/L (22-29); Chloride 96 mmol/L (98-107); Globulin 3.3 g/dL (1.3-4.6); Glomerular Filtration Rate 104.1 mL/min (90-130); Glucose 105 mg/dL (65-115); Magnesium 2.1 mg/dL (1.7-2.3); NT Pro B Type Natriuretic Pept 3838 pg/mL (0-125); Osmolality Calculated 285 mOsm/kg (285-295); Potassium 3.4 mmol/L (3.5-5.1); Sodium 139 mmol/L (136-145); Total Bilirubin 0.9 mg/dL (0.15-1.2)
[2019-11-15 07:58] VITALS: BP 123/75; PULSE 92; RESP 16; TEMP 36.5; O2SAT 97
[2019-11-15] MEDS: ferrous sulfate EC 325 mg Tablet PO (08:22)
[2019-11-15] MEDS: pantoprazole DR 40 mg Tablet PO (08:22)
[2019-11-15] MEDS: aspirin 81 mg Chew Tablet PO (08:22)
[2019-11-15] MEDS: multivitamin therapeutic Tablet 1 TAB PO (08:22)
[2019-11-15] MEDS: loratadine 10 mg Tablet PO (08:22)
[2019-11-15] MEDS: enoxaparin 40 mg/0.4 mL Syringe SUBCUT (08:23)
--- NOTE | 2019-11-15 08:30 | P.DS_ITS ---
Discharge Providers Date of Admission: 11/13/19 08:17 Date of Discharge: November 15, 2019 Attending Provider at Admission: Abisai Sánchez MD Attending Provider at Discharge: Abisai Sánchez MD Primary Care Provider: Ilya Saxnea MD Diagnoses at Discharge Discharge Diagnosis (1) SVT (supraventricular tachycardia): Status: Acute (2) HTN (hypertension): Status: Acute (3) Congestive heart failure: Status: Acute (4) Diabetes mellitus: Status: Acute (5) Iron deficiency anemia: Status: Acute Other Information Additional DC diagnoses/information: 1. Acute on chronic systolic CHF exacerbation with fluid overload 2. Bilateral pleural effusions 3. Morbid obesity 4. Diabetes mellitus type 2 5. Hypertension 6. History of SVT 7. Obstructive sleep apnea -CPAP while in the hospital. 8. Iron deficiency anemia Reason for Visit Reason for Visit: Reason For Visit: FLUID RETENTION; UNABLE TO URINATE Hospital Course Hospital Course: Damian Quesada is a 44 year old male with past medical histo ry of systolic CHF and SVT who presented to the emergency department significant increasing shortness of breath. The patient has had increasing edema that has been gradually worsening over the last number of months. He is gotten to the point where medications by mouth have not been sufficiently diuresing him and he now has significant swelling in his abdomen and shortness of breath. At the time of admission the patient was no longer able to urinate secondary to swelling around his genitalia. He denies any chest pains at this time. He has not had any recent SVT. In the hospital the patient had a Kuhn catheter placed and was started on IV Lasix. The patient was given 60 mg of Lasix IV every 8 hours and had good urine output. His urine output was between 4 to 5 L/day. We talked about fluid restriction as well and the patient had an overall deficit around 9 to 10 L over his 3 days in the hospital with approximately 14 to 15 L out. The patient's dyspnea significantly improved with this treatment. Upon admission he was significantly dyspneic just at rest, now he has some shortness of breath with exertion, however no significant dyspnea at rest. The patient continues to have swelling around his genitalia and is still finding it difficult to urinate, so the Kuhn catheter will be kept in place and we will continue with diuresis by mouth as an outpatient at home. The patient will follow-up early next week with his primary care physician where the Kuhn can be removed at that time if possible. The patient will continue with Lasix 60 mg 3 times daily along with potassium 40 mEq 3 times daily. The patient's potassium at discharge was 3.4. This dose of Lasix can be adjusted downwards as an outpatient and as his fluid levels continue to improve. The patient was encouraged to ambulate to mobilize fluids. The patient has a history of SVT and had one episode of tachycardia while in the hospital. He was not symptomatic with this. The patient will be started on c arvedilol 3.125 mg twice a day for rate control. His blood pressures have not been elevated, so he may not tolerate higher doses with his blood pressure. The patient was found to be slightly anemic with a hemoglobin of 11.4 and an MCV in the mid 70s. His iron levels were found to be low as well. The patient is to follow-up with his PCP as an outpatient for likely upper and lower endoscopy. The patient is taking iron supplementation twice a day at this time. The patient's blood sugars were also noted to be elevated during his hospitalization, so an A1c was drawn and it was 7.2. This is consistent with a new diagnosis of diabetes mellitus type 2. The patient will be started on metformin 500 mg once daily. He is to follow-up with his PCP for further evaluation. I did have a discussion with him regarding the causes and recommended weight loss to help reverse this if possible. Overall the patient is doing much better and is ready to be discharged home. All questions were answered. The patient is in agreement with discharge home at this time. Physical Exam Narrative: EXAM NARRATIVE: General: Alert and oriented x3 Cardiac: Regular rate and rhythm without murmurs Lungs: Clear to auscultation bilaterally without crackles, wheezes or rhonchi. Abdomen: Soft, nontender, significant distention and swelling of his abdomen with signs of fluid in the abdominal wall and swelling of his pannus and area around his genitalia. Pitting edema noted 12 cm below the umbilicus. Overall signs of decreased swelling in the lower abdomen clinically compared to yesterday. Extremities: 3+ pitting edema with compression socks. Urinary Catheter Management^: Kuhn: Cath Placed During This Visit: yes Reason for Continuing Indwelling Catheter: Acute Urinary Retention or Obstruction Urinary Catheter Date of Insertion: 11/12/19 Urinary Catheter Time of Insertion: 07:25 Discharge Data Data Completed and Pending: Completed Studies During Hospitalization Category Date Time Status XR chest 1V demian ble 37917 Stat Exams 11/12/19 04:57 Completed Pending at discharge Category Date Time Status Immunochemical Fe cielo OCB Routine Lab 11/14/19 08:32 Uncollected Labs from last 24 hours 11/15/19 11/15/19 05:17 05:17 WBC 9.0 RBC 4.89 Hgb 11.3 L Hct 37.8 L MCV 77.3 L MCH 23.1 L MCHC 29.9 L RDW 17.9 H Plt Count 334 MPV 10.1 Neut % (Auto) 71.9 Lymph % (Auto) 17.1 [place] % (Auto) 8.4 Eos % (Auto) 1.8 Baso % (Auto) 0.6 Neut # (Auto) 6.5 Lymph # (Auto) 1.5 [place] # (Auto) 0.8 Eos # (Auto) 0.2 Baso # (Auto) 0.1 Nucleated RBC % (a uto) 0 Nucleated RBCs # 0.0 Sodium 139 Potassium 3.4 L Chloride 96 L Carbon Dioxide 29 Anion Gap 17.4 BUN 19 Creatinine 0.8 GFR Calculation 104.1 Glucose 105 Calculated Osmolal ity 285 Calcium 8.9 Magnesium 2.1 Total Bilirubin 0.9 AST 42 H ALT 18 Alkaline Phosphata se 63 C-React Prot High Sens 5.270 H NT-Pro-B Natriuret Pep 3838 H Total Protein 7.0 Albumin 3.7 Globulin 3.3 Vitals: Last Vital Signs Temp 97.7 F 11/15/19 07:58 Pulse 92 11/15/19 07:58 Resp 16 11/15/19 07:58 BP 123/75 11/15/19 07:58 Pulse Ox 97 11/15/19 07:58 Discharge Plan Discharge Patient Disposition: Home, Self-Care Condition: Good Prescriptions: New furosemide 20 mg tablet 60 mg PO Q8H Qty: 270 RF: 0 ferrous sulfate 325 mg (65 mg iron) Tablet,Delayed Release (Dr/Ec) 325 mg PO BIDWM Qty: 60 RF: 2 potassium chloride 10 mEq Tablet Extended Release 40 meq PO TID Qty: 360 RF: 0 metformin 500 mg tablet 500 mg PO DAILY Qty: 30 RF: 1 Continued fluticasone propionate [Flonase Allergy Relief] 50 mcg/actuation spray,suspension 2 spray INTRANASAL QPM RF: 0 loratadine 10 mg tablet 10 mg PO DAILY RF: 0 omeprazole 20 mg capsule,delayed release(DR/EC) 20 mg PO DAILY RF: 0 albuterol sulfate 90 mcg/actuation aero powdr breath act w/sensor 1 - 2 inh INHALATION Q6H PRN (Reason: Shortness Of Breath) RF: 0 hydrochlorothiazide 25 mg Tablet 25 mg PO DAILY RF: 0 multivitamin Tablet 1 tab PO DAILY RF: 0 ascorbic acid (vitamin C) [Vitamin C] 500 mg Tablet 500 mg PO DAILY RF: 0 aspirin 81 mg Tablet,Chewable 81 mg PO DAILY RF: 0 carvedilol 3.125 mg tablet 3.125 mg PO Q12H 90 Days Qty: 60 RF: 3 Discontinued furosemide 20 mg tablet 20 mg PO DAILY PRN (Reason: weight gain) 90 Days Qty: 90 RF: 3 Discharge Orders: Discharge Order (Routine); Ordered 11/15/19 Ordered By: Abisai Sánchez Referrals: Ilya Saxena MD [Primary Care Provider] - 11/20/19 Discharge Diet: As Directed, Diabetic and Low Fat Discharge Activity: Increase activity as tolerated Discharge Attestations Time Spent in Discharge Care*: greater than 30 min Specific Discharge Activities: Specific discharge activities: educating patient, documenting/other paperwork and evaluating patient/reviewing data Quality Metrics Clinical Quality Measures During this hospital stay, did patient experience: None Coding Level of Care Code Acute Funeral Greeter for [facility] Fwd Diagnoses SVT (supraventricular tachycardia) I47.1 HTN (hypertension) I10 Congestive heart failure I50.9 Diabetes mellitus E11.9 Iron deficiency anemia D50.9
[2019-11-15 08:58] VITALS: BP 123/75; PULSE 92; RESP 16; TEMP 36.5; O2SAT 97
--- NOTE | 2019-11-15 09:50 | PC.NURSE ---
Reviewed discharge with patient at this time. Patient verbalized understanding of changes to his medications and his follow-up appointment. Patient was showed how to empty his Kuhn Catheter and how to clean his russ-area. IV was removed with catheter intact.
[2019-11-15 10:02] VITALS: BP 123/75; PULSE 92; RESP 16; TEMP 36.5; O2SAT 97
== END 2019-11-15 10:00 | disposition home or self-care (01) | DRG 292 ==
LOC: ER 07:20 → MEDSURG 07:54
PROVIDERS: Emergency Medicine; Admitting Provider Family Medicine; Family Provider Family Medicine; PCP Family Medicine; Visit Provider Family Medicine
DX: I11.0 Hypertensive heart disease with heart failure (principal); I47.1 Supraventricular tachycardia; Z68.44 Body mass index [BMI] 60.0-69.9, adult; E66.2 Morbid (severe) obesity with alveolar hypoventilation; I50.23 Acute on chronic systolic (congestive) heart failure; E11.9 Type 2 diabetes mellitus without complications; D50.9 Iron deficiency anemia, unspecified; R33.9 Retention of urine, unspecified
CPT/HCPCS: 12345; 36415; 51702; 71045; 80053; 81001; 83036; 83540; 83550; 83735; 83880; 84100; 84484; 85025; 85610; 86141; 93005; 94660; 96372; 96375; 97161; 99283; G0378; J1650; J1940

== ENCOUNTER 2019-11-27 14:55 | Emergency (ER) | payer BC, SELFPAY ==
[2019-11-27 15:18] VITALS: BP 126/82; PULSE 90; RESP 14; TEMP 36.7; O2SAT 96; BMI 63.6
[2019-11-27 16:41] VITALS: BP 136/86; PULSE 107; RESP 20; O2SAT 96
--- NOTE | 2019-11-27 17:00 | US_ITS ---
WS: [id number] US bladder [id number] REASON FOR EXAM: Kuhn Catheter not draining FINDINGS: Only a small area of the urinary bladder seen which is markedly thickened wall the a conclu sive evaluation the bladder cannot be made due to the lower abdomen and pelvis swollen the technologi st reported the bladder is poorly seen. US/US bladder [id number] IMPRESSION: Inconclusive evaluation of the urinary bladder.
[2019-11-27 18:08] VITALS: BP 120/90; PULSE 93; RESP 20; O2SAT 95
[2019-11-27 18:31] LABS: Basophils % 0.3 %; Eosinophils # 0.1 10^3/uL (0.0-0.8); Eosinophils % 1.2 %; Hemoglobin 12.5 g/dL (11.7-16.6); Lymphocytes # 1.2 10^3/uL (0.8-4.8); Mean Corpuscular HGB Conc 29.8 g/dL (30.0-36.0); Mean Corpuscular Hemoglobin 23.9 pg (28.0-34.0); Mean Corpuscular Volume 80.5 fL (80-94); Mean Platelet Volume 10.2 fL (7.4-10.4); Monocytes # 0.5 10^3/uL (0.2-0.9); Neutrophils # 7.2 10^3/uL (1.8-7.7); Neutrophils % 79.1 %; Nucleated Red Blood Cells % 0 %; Platelet Count 339 10^3/cmm (130-400); Red Blood Count 5.22 10^6/uL (4.1-5.3); Red Cell Distribution Width 19.9 % (12.1-15.1); White Blood Count 9.1 10^3/uL (4.0-10.0)
[2019-11-27 18:33] LABS: Bilirubin Urine Neg (NEGATIVE); Blood Urine Neg (Negative); Glucose Urine UA Norm (Normal); Ketones Urine Negative (Negative); Leukocyte Esterase Urine 1+ (Negative); Nitrate Urine Positive (Negative); Protein Urine Neg (Negative); Specific Gravity, Urine 1.015 (1.005-1.030); Urine Appearance Hazy (CLEAR); Urine Color Yellow (Yellow); Urobilinogen Urine Norm (Negative); pH Urine 6.5 (5-7)
[2019-11-27 18:34] LABS: Add Urine Microscopic? YES
[2019-11-27 18:35] LABS: Add Urine Culture? Yes; Bacteria Urine 2+; Mucus Urine 1+; RBC Urine 0-4 /hpf (0-2); Squamous Epithelial Cell Urine 0-4 (0-5)
[2019-11-27 18:50] LABS: Alanine Aminotransferase 15 U/L (0-41); Albumin Level 3.6 g/dL (3.5-5.2); Alkaline Phosphatase 79 IU/L (40-130); Anion Gap 18.8 (5-19); Aspartate Amino Transferase 35 U/L (0-40); Blood Urea Nitrogen 18 mg/dL (6-20); Calcium 9.7 mg/dL (8.5-10.5); Carbon Dioxide 24 mmol/L (22-29); Chloride 101 mmol/L (98-107); Glomerular Filtration Rate 104.1 mL/min (90-130); Glucose 127 mg/dL (65-115); Osmolality Calculated 288 mOsm/kg (285-295); Potassium 3.8 mmol/L (3.5-5.1); Sodium 140 mmol/L (136-145); Total Bilirubin 0.8 mg/dL (0.15-1.2); Total Protein 7.6 g/dL (6.6-8.7)
--- NOTE | 2019-11-27 19:01 | W.ED.MALEGU ---
HPI - Male Genitourinary General: Chief complaint: Urogenital-Male Stated complaint: cath blockage Time Seen by Provider: 11/27/19 16:59 History of Present Illness: HPI Narrative: The patient is a 44 year old male who presents with issues with his Kuhn catheter. He states that since this morning it has not drained and he has a sensation of wanting to pass urine. He had a catheter placed recently because he was started on Lasix for fluid overload. He states that he has lost about 42 pounds of fluid. He denies any fever, any abdominal pain. He thinks his catheter may be blocked since it is not draining any longer. Associated symptoms: Deny dysuria, nausea or vomiting Review of Systems General: Reports: 10 or more systems reviewed and unremarkable except in HPI and below Const: Denies: fever(s), chills or body aches Card: Denies: palpitations, irregular heart rhythm, edema or swelling of feet/ankles Resp: Denies: dyspnea, productive cough or non-productive cough GI: Denies: abdominal pain, nausea or vomiting : Denies: flank pain, dysuria, urinary frequency, urinary urgency or urinary hesitancy Musc: Denies: neck pain, back pain or extremity swelling Skin/Breast: Denies: rash, pruritus or erythema Neuro: Denies: headache(s), numbness in extremities or weakness in extremities [facility] ED PFSH: Medical History (Updated 11/27/19 @ 19:04 by Lucho Rodriguez MD, [facility]) Congestive heart failure HTN (hypertension) SVT (supraventricular tachycardia) Surgical History (Reviewed 11/27/19 @ 20:15 by Lucho Rodriguez MD, [facility]) LAP-BAND surgery status Family History (Reviewed 11/27/19 @ 20:15 by Lucho Rodriguez MD, [facility]) Mother Arrhythmia Social History (Reviewed 11/27/19 @ 20:15 by Lucho Rodriguez MD, [facility]) Smoking and tobacco status: never smoked Alcohol intake: current Alcohol intake frequency: holidays/special occasions only Household members: spouse Current occupational status: employed 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 Physical Exam Const: COMMON NORMALS: no acute distress, patient oriented x3, no limitations, healthy appearing, alert and well nourished NUTRITIONAL APPEARANCE: obese morbidly obese Neck/C-Spine: COMMON NORMALS: no meningeal signs and no JVD Resp: COMMON NORMALS: normal respiratory effort, No retractions, No use of accessory muscles, clear to auscultation bilaterally and percussion normal AUSCULTATION: clear to auscultation bilaterally PERCUSSION: percussion normal Cardio: COMMON NORMALS: no JVD, regular rate, regular rhythm, S1 normal heart sound present, S2 normal heart sound present, No gallops present (Cardio), No clicks present (Cardio), No murmurs present (Cardio), No rub (Cardio) and Peripheral pulses 2+ throughout RATE: regular rate RHYTHM: regular rhythm HEART SOUNDS: S1 normal heart sound present and S2 normal heart sound present PERIPHERAL PULSES: Peripheral pulses 2+ throughout GI: COMMON NORMALS: Normal to inspection, nondistended, normoactive bowel sounds present, Soft to palpation, non-tender, No hepatosplenomegaly present, no masses and no bruits PALPATION: Yes Soft to palpation and Yes No hepatosplenomegaly present : COMMON NORMALS: Yes no CVA tenderness BLADDER/KIDNEY EXAM: Yes no CVA tenderness Back/Pelvis: COMMON NORMALS: no CVA tenderness Extremity: COMMON NORMALS: normal to inspection, full ROM, capillary refill normal and no calf tenderness GENERAL: Yes edema Neuro: COMMON NORMALS: patient oriented x3 SENSORIUM/ORIENTATION: Yes alert MENINGEAL SIGNS: Yes no meningeal signs Course Reevaluation(s): Reevaluation #1: Discussed his lab findings with him. UA suggestive of UTI. Renal function normal. He obtained marked relief after the catheter change with about 1200 mils of urine drained. Wound given a dose of an oral antibiotic and he will be discharged home with a prescription for the same. He voiced understanding and is in agreement with the plan. Time: 19:01 Vital Signs: Vital signs: Vital Signs Temperature 98.0 F 11/27/19 15:18 Pulse Rate 86 11/27/19 19:43 Respiratory Rate 20 H 11/27/19 19:43 Blood Pressure 118/84 11/27/19 19:43 Pulse Oximetry 96 11/27/19 19:43 MDM - Male MDM Narrative: Medical decision making narrative: 44-year-old gentleman who presented with acute urinary retention. His Kuhn catheter was not draining, and when he was change about 1200 mils of urine was drained. Urinalysis shows a urinary tract infection. He is discharged home on oral antibiotics. He is to follow-up with his primary care provider. Differential Diagnosis: Urogenital Male Differential Diagnosis: Likely urinary tract infection, epididymitis and acute retention of urine Medical Records: Attestation: I reviewed the patient's medical records. Lab Data: Attestation: I reviewed the patient's lab results. Labs: Lab Results 11/27/19 11/27/19 11/27/19 Range/Units 18:06 18:20 18:20 WBC 9.1 (4.0-10.0) 10^3/ uL RBC 5.22 (4.1-5.3) 10^6/u L Hgb 12.5 (11.7-16.6) g/dL Hct 42.0 (42.0-52.0) % MCV 80.5 (80-94) fL MCH 23.9 L (28.0-34.0) pg MCHC 29.8 L (30.0-36.0) g/dL RDW 19.9 H (12.1-15.1) % Plt Count 339 (130-400) 10^3/c mm MPV 10.2 (7.4-10.4) fL Neut % (Auto) 79.1 % Lymph % (Auto) 13.0 % [place] % (Auto) 6.0 % Eos % (Auto) 1.2 % Baso % (Auto) 0.3 % Neut # (Auto) 7.2 (1.8-7.7) 10^3/u L Lymph # (Auto) 1.2 (0.8-4.8) 10^3/u L [place] # (Auto) 0.5 (0.2-0.9) 10^3/u L Eos # (Auto) 0.1 (0.0-0.8) 10^3/u L Baso # (Auto) 0.0 (0.0-0.1) 10^3/u L Nucleated RBC % (a uto) 0 % Nucleated RBCs # 0.0 /100WBC Sodium 140 (136-145) mmol/L Potassium 3.8 (3.5-5.1) mmol/L Chloride 101 (98-107) mmol/L Carbon Dioxide 24 (22-29) mmol/L Anion Gap 18.8 (5-19) BUN 18 (6-20) mg/dL Creatinine 0.8 (0.7-1.2) mg/dL GFR Calculation 104.1 (90-130) mL/min Glucose 127 H (65-115) mg/dL Calculated Osmolal ity 288 (285-295) mOsm/k g Calcium 9.7 (8.5-10.5) mg/dL Total Bilirubin 0.8 (0.15-1.2) mg/dL AST 35 (0-40) U/L ALT 15 (0-41) U/L Alkaline Phosphata se 79 (40-130) IU/L Total Protein 7.6 (6.6-8.7) g/dL Albumin 3.6 (3.5-5.2) g/dL Globulin 4.0 (1.3-4.6) g/dL Urine Color Yellow (Yellow) Urine Appearance Hazy A (CLEAR) Urine pH 6.5 (5-7) Ur Specific Gravit y 1.015 (1.005-1.030) Urine Protein Neg (Negative) Urine Glucose (UA) Norm (Normal) Urine Ketones Negative (Negative) Urine Blood Neg (Negative) Urine Nitrate Positive H (Negative) Urine Bilirubin Neg (NEGATIVE) Urine Urobilinogen Norm (Negative) mg/dL Ur Leukocyte Juanita ase 1+ H (Negative) Urine RBC 0-4 H (0-2) /hpf Urine WBC 5-10 H (0-5) /hpf Ur Squamous Epith Cells 0-4 H (0-5) Urine Bacteria 2+ H (NONE) Urine Mucus 1+ Discharge Plan Discharge Patient Disposition: Home, Self-Care Clinical Impression: Acute retention of urine Urinary tract infection Qualifiers: Urinary tract infection type: acute cystitis Hematuria presence: without hematuria Qualified Code(s): N30.00 - Acute cystitis without hematuria Condition: Stable Prescriptions: New Augmentin 875-125 mg tablet 1 tab PO BID Qty: 14 RF: 0 Continued fluticasone propionate [Flonase Allergy Relief] 50 mcg/actuation spray,suspension 2 spray INTRANASAL QPM RF: 0 omeprazole 20 mg capsule,delayed release(DR/EC) 20 mg PO DAILY RF: 0 albuterol sulfate 90 mcg/actuation aero powdr breath act w/sensor 1 - 2 inh INHALATION Q6H PRN (Reason: Shortness Of Breath) RF: 0 potassium chloride 10 mEq Tablet Extended Release 40 meq PO TID Qty: 360 RF: 0 ferrous sulfate 325 mg (65 mg iron) Tablet,Delayed Release (Dr/Ec) 325 mg PO BIDWM Qty: 60 RF: 2 furosemide 20 mg tablet 60 mg PO Q8H Qty: 270 RF: 0 multivitamin Tablet 1 tab PO DAILY RF: 0 ascorbic acid (vitamin C) [Vitamin C] 500 mg Tablet 500 mg PO DAILY RF: 0 aspirin 81 mg Tablet,Chewable 81 mg PO DAILY RF: 0 Discharge Orders: Discharge Order (Routine); Ordered 11/27/19 Ordered By: Lucho Rodriguez Referrals: Ilya Saxena MD [Primary Care Provider] - 4-7 days Patient Instructions: Urinary Retention in Men (ED), Urinary Tract Infection in Men (ED) Activity Restrictions/Additional Instructions: Return for any new or worsening symptoms. Follow-up with your primary care provider within 1 week. Take the antibiotic as prescribed. Drink plenty of fluids to keep well-hydrated. Discharge Date/Time: 11/27/19 19:44 Coding Level of Care Code ED Contractor General Engineering for Roopa Hernandez
[2019-11-27] MEDS: sulfamethoxazole-trimeth DS 160-800 mg Tablet 1 TAB PO (19:31)
--- NOTE | 2019-11-27 19:39 | PC.NURSE ---
i agree with this assessment
[2019-11-27 19:43] VITALS: BP 118/84; PULSE 86; RESP 20; O2SAT 96
== END 2019-11-27 19:44 | disposition home or self-care (01) ==
PROVIDERS: Emergency Provider Family Medicine; PCP Family Medicine
DX: N30.00 Acute cystitis without hematuria (principal); R33.9 Retention of urine, unspecified; Z79.82 Long term (current) use of aspirin; I11.0 Hypertensive heart disease with heart failure; I50.9 Heart failure, unspecified
CPT/HCPCS: 12345; 36415; 51702; 51798; 76857; 80053; 81001; 85025; 87077; 87086; 87186; 99282; 99283

== ENCOUNTER 2020-01-03 12:36 | Observation (INO) | payer BC, SELFPAY ==
[2020-01-03 12:46] VITALS: BP 124/89; PULSE 112; RESP 14; TEMP 36.3; O2SAT 98; BMI 65.2
--- NOTE | 2020-01-03 15:51 | XRR_ITS ---
PROCEDURE INFORMATION: Exam: XR Chest, 1 View Exam date and time: 01/03/2020 4:25 PM Age: 44 years old Clinical indication: Cough and dyspnea and shortness of breath; Prior surgery; Surgery type: Aorta (as a child); Additional info: Dyspnea/cough, retaiing fluid, pain in abd and shoulders TECHNIQUE: Imaging protocol: XR of the chest Views: 1 view. COMPARISON: CR XR chest 1V portable [id number] 11/12/2019 5:42 AM FINDINGS: Lungs: Unremarkable. No consolidation. Pleural space: Unremarkable. No pleural effusion. No pneumothorax. Heart/Mediastinum: There is cardiomegaly for projection. Bones/joints: Unremarkable. XR/XR chest 1V portable [id number] IMPRESSION: No acute findings. Cardiomegaly for projection
--- NOTE | 2020-01-03 16:03 | ED_ITS ---
HPI - General Adult General: Chief complaint: General Medical Stated complaint: sob, abd swelling, abd pain, shoulder pain Time Seen by Provider: 01/03/20 15:48 History of Present Illness: HPI narrative: 43-year-old male comes in complaining of fluid retention. He was seen a few weeks ago and had a Kuhn placed for urinary retention. He reports abdominal fullness difficulty breathing anasarca dyspnea on exertion he is extremely morbidly obese his pannus reaches down below the level of his knees while in a seated position. He did recently changed from Lasix to Bumex. He denies missing any medications lately. He denies fever sweats or chills or productive cough. Onset (ago): day(s) Location: chest, abdomen and lower extremity Radiation: non-radiation Severity: moderate Quality: aching Pain Consistency: constant Relieving factors: none Exacerbating factors: movement Associated symptoms: Reports dyspnea; Deny chest pain, malaise, nausea, rash or vomiting Treatments prior to arrival: other (Diuretics) Review of Systems Const: Denies: fever(s), chills, body aches, change in appetite, fatigue or malaise ENMT: Denies: throat pain, ear or mastoid pain, nasal discharge or nasal congestion Card: Reports: edema, dyspnea on exertion and orthopnea; Denies: chest pain Resp: Reports: dyspnea GI: Reports: abdominal pain; Denies: nausea, vomiting, hematemesis, coffee ground emesis, diarrhea, constipation, bloating, hematochezia or melena : Denies: flank pain, dysuria, urinary frequency or urinary urgency Skin/Breast: Denies: rash or pruritus PFSH ED PFSH: Medical History Congestive heart failure HTN (hypertension) SVT (supraventricular tachycardia) Surgical History LAP-BAND surgery status Family History Mother Arrhythmia Social History Smoking and tobacco status: never smoked Alcohol intake: current Alcohol intake frequency: holidays/special occasions only Household members: spouse Current occupational status: employed 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 Physical Exam Const: COMMON NORMALS: no acute distress GENERAL APPEARANCE: cooperative and comfortable ORIENTATION/CONSCIOUSNESS: Yes awake, Yes oriented to person, Yes oriented to place and Yes oriented to time HENMT: COMMON NORMALS: normocephalic, atraumatic, hearing grossly normal bilaterally, external ears normal, EAC's normal, TM's normal bilaterally, Normal nasal mucous membranes and turbinates present, moist oral mucous membranes and oropharynx normal HEAD & SCALP: normocephalic and atraumatic NOSE: Normal nasal mucous membranes and turbinates present EXTERNAL EAR: Yes external ears normal EXTERNAL AUDITORY CANAL: EAC's normal TYMPANIC MEMBRANE: TM's normal bilaterally Eye: COMMON NORMALS: Equal, round and reactive pupils present, EOMs intact bilaterally, conjunctivae normal and no scleral icterus CONJUNCTIVA: Yes conjunctivae normal PUPIL: Yes Equal, round and reactive pupils present Neck/C-Spine: COMMON NORMALS: full ROM, no lymphadenopathy, supple and no JVD Lymph: LYMPHATIC: no lymphadenopathy noted and no lymphedema noted Resp: COMMON NORMALS: normal respiratory effort, No retractions, No use of accessory muscles and clear to auscultation bilaterally AUSCULTATION: clear to auscultation bilaterally Cardio: COMMON NORMALS: no JVD, regular rate, regular rhythm and No murmurs present (Cardio) RATE: regular rate RHYTHM: regular rhythm GI: OTHER: Patient has super morbid obesity cannot really meaningfully palpate his abdomen in any way the pannus has a large amount of anasarca present. The only significant finding that can be said of examining his abdomen Extremity: NARRATIVE EXTREMITY EXAM: 3+ edema to the lower extremities bilaterally sensation normal compression stockings in place Neuro: SENSORIUM/ORIENTATION: Yes oriented to person, Yes oriented to place and Yes oriented to time Skin: COMMON NORMALS: no rashes or lesions noted GENERAL SKIN EXAM: no rashes or lesions noted Course Vital Signs: Vital signs: Vital Signs Temperature 97.4 F L 01/05/20 10:21 Pulse Rate 100 01/05/20 10:21 Respiratory Rate 22 H 01/05/20 10:21 Blood Pressure 101/77 01/05/20 10:21 Pulse Oximetry 95 01/05/20 10:21 MDM - General Adult MDM Narrative: Medical decision making narrative: Rachel Saxena will go ahead and admit for IV diuretics for early signs of decompensating congestive heart failure Lab Data: Labs: Lab Results 01/03/20 01/03/20 01/03/20 Range/Units 16:30 16:30 16:30 WBC 9.8 (4.0-10.0) 10^3/ uL RBC 5.71 H (4.1-5.3) 10^6/u L Hgb 13.5 (11.7-16.6) g/dL Hct 46.0 (42.0-52.0) % MCV 80.6 (80-94) fL MCH 23.6 L (28.0-34.0) pg MCHC 29.3 L (30.0-36.0) g/dL RDW 20.0 H (12.1-15.1) % Plt Count 335 (130-400) 10^3/c mm MPV 11.4 H (7.4-10.4) fL Neut % (Auto) 80.9 % Lymph % (Auto) 11.7 % [place] % (Auto) 6.1 % Eos % (Auto) 0.5 % Baso % (Auto) 0.4 % Neut # (Auto) 7.90 H (1.8-7.7) 10^3/u L Lymph # (Auto) 1.1 (0.8-4.8) 10^3/u L [place] # (Auto) 0.6 (0.2-0.9) 10^3/u L Eos # (Auto) 0.1 (0.0-0.8) 10^3/u L Baso # (Auto) 0.0 (0.0-0.1) 10^3/u L Nucleated RBC % (a uto) 0.4 % Nucleated RBCs # 0.0 /100WBC Sodium 136 (136-145) mmol/L Potassium 3.5 (3.5-5.1) mmol/L Chloride 97 L (98-107) mmol/L Carbon Dioxide 25 (22-29) mmol/L Anion Gap 17.5 (5-19) BUN 25 H (6-20) mg/dL Creatinine 0.8 (0.7-1.2) mg/dL GFR Calculation 104.1 (90-130) mL/min Glucose 131 H (65-115) mg/dL Calculated Osmolal ity 281 L (285-295) mOsm/k g Lactate 2.8 H (0.5-2.2) mmol/L Calcium 9.7 (8.5-10.5) mg/dL Total Bilirubin 1.3 H (0.15-1.2) mg/dL AST 80 H (0-40) U/L ALT 46 H (0-41) U/L Alkaline Phosphata se 92 (40-130) IU/L Creatine Kinase 32 L (39-308) U/L Troponin T Baselin e (0-15) ng/L Troponin T 120 Min [place] (0-15) ng/L Delta Troponin T (0-10) ABS# NT-Pro-B Natriuret Pep 4632 H (0-125) pg/mL Total Protein 7.6 (6.6-8.7) g/dL Albumin 3.5 (3.5-5.2) g/dL Globulin 4.1 (1.3-4.6) g/dL Lipase 67 H (13-60) U/L 01/03/20 01/03/20 Range/Units 16:30 18:30 WBC (4.0-10.0) 10^3/ uL RBC (4.1-5.3) 10^6/u L Hgb (11.7-16.6) g/dL Hct (42.0-52.0) % MCV (80-94) fL MCH (28.0-34.0) pg MCHC (30.0-36.0) g/dL RDW (12.1-15.1) % Plt Count (130-400) 10^3/c mm MPV (7.4-10.4) fL Neut % (Auto) % Lymph % (Auto) % [place] % (Auto) % Eos % (Auto) % Baso % (Auto) % Neut # (Auto) (1.8-7.7) 10^3/u L Lymph # (Auto) (0.8-4.8) 10^3/u L [place] # (Auto) (0.2-0.9) 10^3/u L Eos # (Auto) (0.0-0.8) 10^3/u L Baso # (Auto) (0.0-0.1) 10^3/u L Nucleated RBC % (a uto) % Nucleated RBCs # /100WBC Sodium (136-145) mmol/L Potassium (3.5-5.1) mmol/L Chloride (98-107) mmol/L Carbon Dioxide (22-29) mmol/L Anion Gap (5-19) BUN (6-20) mg/dL Creatinine (0.7-1.2) mg/dL GFR Calculation (90-130) mL/min Glucose (65-115) mg/dL Calculated Osmolal ity (285-295) mOsm/k g Lactate (0.5-2.2) mmol/L Calcium (8.5-10.5) mg/dL Total Bilirubin (0.15-1.2) mg/dL AST (0-40) U/L ALT (0-41) U/L Alkaline Phosphata se (40-130) IU/L Creatine Kinase (39-308) U/L Troponin T Baselin e 25 H (0-15) ng/L Troponin T 120 Min [place] 24.93 H (0-15) ng/L Delta Troponin T -0.07 L (0-10) ABS# NT-Pro-B Natriuret Pep (0-125) pg/mL Total Protein (6.6-8.7) g/dL Albumin (3.5-5.2) g/dL Globulin (1.3-4.6) g/dL Lipase (13-60) U/L Discharge Plan Discharge Patient Disposition: Admitted As Inpatient Admit Provider: Ilya Saxena Condition: Stable Discharge Orders: Discharge Order (Routine); Ordered 01/05/20 Ordered By: Ilya Saxena Referrals: Ilya Saxena MD [Primary Care Provider] - (Please, call for an follow-up appiintment follow-up appointment with Dr. Saxena in 1 to 3 days. ) Discharge Diet: Usual diet Discharge Activity: Resume usual activity Patient Instructions: Metoprolol (By mouth), Heart Failure (DC), Urinary Tract Infection in Men (DC), CHF Stoplight Additional Instructions: - continue all home meds the same except; stop bumex; Take Metolazone daily; Restart metoprolol 12.5mg bid. - Weigh yourself daily - Call if increased chest pain or shortness of breath. - Follow up with Dr. Saxena or Tue of next week. Call Tuesday for appt. Discharge Date/Time: 01/03/20 20:37 Coding Level of Care Code ED Master Barber for Chg Fwd Exam Comprehensive
[2020-01-03 16:58] LABS: Basophils % 0.4 %; Eosinophils # 0.1 10^3/uL (0.0-0.8); Eosinophils % 0.5 %; Hemoglobin 13.5 g/dL (11.7-16.6); Lymphocytes # 1.1 10^3/uL (0.8-4.8); Lymphocytes % 11.7 %; Mean Corpuscular HGB Conc 29.3 g/dL (30.0-36.0); Mean Corpuscular Hemoglobin 23.6 pg (28.0-34.0); Mean Corpuscular Volume 80.6 fL (80-94); Mean Platelet Volume 11.4 fL (7.4-10.4); Monocytes # 0.6 10^3/uL (0.2-0.9); Monocytes % 6.1 %; Neutrophils % 80.9 %; Nucleated Red Blood Cells % 0.4 %; Platelet Count 335 10^3/cmm (130-400); Red Blood Count 5.71 10^6/uL (4.1-5.3); White Blood Count 9.8 10^3/uL (4.0-10.0)
[2020-01-03 17:11] LABS: Lactate (Lactic Acid level) 2.8 mmol/L (0.5-2.2)
[2020-01-03] MEDS: FUROsemide 10 mg/mL SDV 10mL 80 MG IVP ×2 (17:15→22:37)
[2020-01-03 17:25] LABS: Slide Review Slide Review Perform
[2020-01-03 17:26] LABS: Alanine Aminotransferase 46 U/L (0-41); Albumin Level 3.5 g/dL (3.5-5.2); Alkaline Phosphatase 92 IU/L (40-130); Anion Gap 17.5 (5-19); Aspartate Amino Transferase 80 U/L (0-40); Blood Urea Nitrogen 25 mg/dL (6-20); Calcium 9.7 mg/dL (8.5-10.5); Carbon Dioxide 25 mmol/L (22-29); Chloride 97 mmol/L (98-107); Creatine Phosphokinase 32 U/L (39-308); Globulin 4.1 g/dL (1.3-4.6); Glomerular Filtration Rate 104.1 mL/min (90-130); Glucose 131 mg/dL (65-115); Lipase 67 U/L (13-60); NT Pro B Type Natriuretic Pept 4632 pg/mL (0-125); Osmolality Calculated 281 mOsm/kg (285-295); Potassium 3.5 mmol/L (3.5-5.1); Sodium 136 mmol/L (136-145); Total Bilirubin 1.3 mg/dL (0.15-1.2); Total Protein 7.6 g/dL (6.6-8.7)
--- NOTE | 2020-01-03 18:33 | ECG_ITS ---
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 Measurements Intervals [place] Rate: 102 P: 44 IN: 186 QRS: 26 QRSD: 108 T: 80 QT: 348 QTc: 455 Interpretive Statements SINUS TACHYCARDIA WITH FREQUENT VENTRICULAR PREMATURE COMPLEXES INDETERMINATE AXIS LOW QRS VOLTAGE IN PRECORDIAL LEADS [QRS DEFLECTION < 1.0 mV IN CHEST LEADS] ANTEROSEPTAL MYOCARDIAL INFARCTION , PROBABLY OLD [40+ ms Q WAVE IN V1-V4] Compared to ECG 11/12/2019 05:23:19 Indeterminate axis now present Low QRS voltage now present Myocardial infarct finding now present T-wave abnormality no longer present Electronically Signed On 01-03-2020 22:25:23 CDT by Chely Lizama M.D. [id number]
--- NOTE | 2020-01-03 18:33 | ECG_ITS ---
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 Measurements Intervals [place] Rate: 101 P: 48 MN: 201 QRS: 34 QRSD: 93 T: 137 QT: 341 QTc: 444 Interpretive Statements SINUS TACHYCARDIA WITH FREQUENT VENTRICULAR PREMATURE COMPLEXES INDETERMINATE AXIS LOW QRS VOLTAGE IN PRECORDIAL LEADS [QRS DEFLECTION < 1.0 mV IN CHEST LEADS] ANTEROSEPTAL MYOCARDIAL INFARCTION , PROBABLY OLD [40+ ms Q WAVE IN V1-V4] Compared to ECG 01/03/2020 18:58:43 No significant changes Electronically Signed On 01-04-2020 19:03:30 CDT by Santy Lombardi M.D. [email or web address] [facility] hospitalBathEmpireohio [facility].Carbon Objects/store/[id number] f
[2020-01-03 19:14] LABS: Troponin(5th) Baseline 25 ng/L (0-15)
[2020-01-03 19:22] LABS: Troponin 5 2HR 24.93 ng/L (0-15)
[2020-01-03 19:27] LABS: Troponin 5 2HR Delta -0.07 ABS# (0-10)
[2020-01-03 19:36] VITALS: BP 110/69; PULSE 107; RESP 21; O2SAT 99
[2020-01-03 20:04] LABS: Add Urine Microscopic? YES; Bilirubin Urine Neg (NEGATIVE); Blood Urine 3+ (Negative); Glucose Urine UA Norm (Normal); Ketones Urine Negative (Negative); Leukocyte Esterase Urine 2+ (Negative); Nitrate Urine Negative (Negative); Protein Urine Neg (Negative); Urine Appearance Hazy (CLEAR); Urine Color Yellow (Yellow); Urobilinogen Urine Norm (Negative); pH Urine 6 (5-7)
[2020-01-03 20:14] LABS: Add Urine Culture? No; Bacteria Urine 3+; Squamous Epithelial Cell Urine 15-25 (0-5); WBC Urine TOO NUMEROUS TO CNT /hpf (0-5)
[2020-01-03 20:31] VITALS: BP 94/69; PULSE 100; RESP 27; O2SAT 99
--- NOTE | 2020-01-03 20:33 | ECG_ITS ---
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 Measurements Intervals [place] Rate: 101 P: 48 GA: 201 QRS: 34 QRSD: 93 T: 137 QT: 341 QTc: 444 Interpretive Statements SINUS TACHYCARDIA WITH FREQUENT VENTRICULAR PREMATURE COMPLEXES INDETERMINATE AXIS LOW QRS VOLTAGE IN PRECORDIAL LEADS [QRS DEFLECTION < 1.0 mV IN CHEST LEADS] ANTEROSEPTAL MYOCARDIAL INFARCTION , PROBABLY OLD [40+ ms Q WAVE IN V1-V4] Compared to ECG 01/03/2020 18:58:43 No significant changes Electronically Signed On 01-04-2020 19:05:22 CDT by Santy Lombardi M.D. [email or web address] [email or web address] [email or web address] [email or web address]/store/[id number] f
[2020-01-03 20:41] VITALS: PULSE 109; RESP 22; O2SAT 96
[2020-01-03 21:32] VITALS: BP 108/88; PULSE 100; RESP 23; O2SAT 96
[2020-01-03 22:00] VITALS: BP 108/88; PULSE 106; RESP 21; O2SAT 95
[2020-01-03] MEDS: potassium chloride ER 10 mEq Tablet 40 MEQ PO (22:37)
[2020-01-03] MEDS: cefTRIAXone 2,000 MG in sodium chloride 0.9% (plus) 50 ML 100 MG IV (23:13)
[2020-01-04] VITALS (9 sets, daily range): BP systolic 107–122; BP diastolic 81–100; PULSE 100–114; RESP 16–33; TEMP 36.4–36.5; O2SAT 93–96
--- NOTE | 2020-01-04 00:33 | ECG_ITS ---
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 Measurements Intervals [place] Rate: 106 P: 59 KS: 182 QRS: 56 QRSD: 113 T: 96 QT: 373 QTc: 497 Interpretive Statements SINUS TACHYCARDIA WITH OCCASIONAL VENTRICULAR PREMATURE COMPLEXES INDETERMINATE AXIS LOW QRS VOLTAGE IN PRECORDIAL LEADS [QRS DEFLECTION < 1.0 mV IN CHEST LEADS] POSSIBLE ANTERIOR MYOCARDIAL INFARCTION [30 ms Q WAVE IN V3/V4, OR R < 0.2 mV IN V4], PROBABLY OLD ABNORMAL RHYTHM ECG Compared to ECG 01/03/2020 18:58:43 No significant changes Electronically Signed On 01-04-2020 19:05:30 CDT by Santy Lombardi M.D. [email or web address] [email or web address].Fashion Genome Project/store/[id number]
[2020-01-04 00:44] LABS: Troponin 5 6HR 22.65 ng/L (0-15)
[2020-01-04 00:57] LABS: Troponin 5 6HR Delta -2.35 ng/L (0-12)
[2020-01-04 03:52] LABS: Basophils % 0.3 %; Eosinophils # 0.1 10^3/uL (0.0-0.8); Hematocrit 40.3 % (42.0-52.0); Hemoglobin 12.1 g/dL (11.7-16.6); Lymphocytes # 1.4 10^3/uL (0.8-4.8); Lymphocytes % 14.7 %; Mean Corpuscular Hemoglobin 23.6 pg (28.0-34.0); Mean Corpuscular Volume 78.6 fL (80-94); Mean Platelet Volume 10.4 fL (7.4-10.4); Monocytes # 0.9 10^3/uL (0.2-0.9); Monocytes % 8.8 %; Neutrophils % 74.9 %; Nucleated Red Blood Cells # 0.1 /100WBC; Nucleated Red Blood Cells % 0.5 %; Platelet Count 352 10^3/cmm (130-400); Red Blood Count 5.13 10^6/uL (4.1-5.3); Red Cell Distribution Width 19.2 % (12.1-15.1); White Blood Count 9.6 10^3/uL (4.0-10.0)
[2020-01-04] MEDS: FUROsemide 10 mg/mL SDV 10mL 80 MG IVP ×4 (03:59→21:10)
[2020-01-04 04:14] LABS: Magnesium 1.8 mg/dL (1.7-2.3)
[2020-01-04 04:22] LABS: Alanine Aminotransferase 50 U/L (0-41); Albumin Level 3.4 g/dL (3.5-5.2); Alkaline Phosphatase 83 IU/L (40-130); Anion Gap 15.3 (5-19); Aspartate Amino Transferase 88 U/L (0-40); Blood Urea Nitrogen 22 mg/dL (6-20); Calcium 9.2 mg/dL (8.5-10.5); Carbon Dioxide 29 mmol/L (22-29); Chloride 95 mmol/L (98-107); Glomerular Filtration Rate 104.1 mL/min (90-130); Glucose 110 mg/dL (65-115); Osmolality Calculated 279 mOsm/kg (285-295); Potassium 3.3 mmol/L (3.5-5.1); Sodium 136 mmol/L (136-145); Total Bilirubin 1.2 mg/dL (0.15-1.2); Total Protein 7.4 g/dL (6.6-8.7)
--- NOTE | 2020-01-04 06:59 | USCV_ITS ---
Damian Quesada Age: 44 Gender: M : 1975 Exam Date: 01/04/2020 08:02 Ordering Phys: Ilya Saxena MD Technologist: Robin Khan [place]am Location[place] [facility] [place]ication: CHF BP: 111 / 92 HR: 104 Rhythm: Sinus Technical Quality: Very technically difficult study MEASUREMENTS (Male / Female) Normal Values M-MODE LV Diastolic Diameter MM 6.0 cm 4.2 - 5.9 / 3.9 - 5.3 cm LV Systolic Diameter MM 4.8 cm LV Ejection Fraction MM Teich 40.5 % IVS Diastolic Thickness MM 1.1 cm 0.6 - 1.0 / 0.6 - 0.9 cm IVS Systolic Thickness MM 2.0 cm LVPW Diastolic Thickness MM 1.4 cm 0.6 - 1.0 / 0.6 - 0.9 cm LVPW Systolic Thickness MM 2.3 cm RV Diastolic Diameter MM 2.3 cm FINDINGS Left Ventricle Right Ventricle Right Atrium Left Atrium Mitral Valve Aortic Valve Tricuspid Valve Pulmonic Valve Pericardium Aorta CONCLUSIONS This is a limited echo with poor quality images. Contrast was used to light the endocardium Moderately enlarged left ventricle, severely depressed LV function. Estimated ejection fraction around 15 %. There appeared to be global hypokinesis This study cannot be compared with prior exam due to its limited quality and suboptimal image Santy Lombardi MD (Electronically Signed) Final Date: 07 January 2020 20:13 S
--- NOTE | 2020-01-04 07:01 | P.HP_ITS ---
Providers/Chief Complaint Admitting Physician: Ilay Saxena MD Primary Care Provider: Ilya Saxena MD Chief Complaint: sob, abd swelling, abd pain, shoulder pain History of Present Illness Damian Quesada is a 44 year old male presents to the emergency room last night for epigastric abdominal pain and chest wall pain along with worsening CHF. He states for the past couple of days he has noticed some pain across his upper abdomen and into his chest seems to be worse when he coughs. It feels like pulled muscle. He is morbidly obese but has not strained himself or injured himself that he is aware of. Pain does seem to be a little more comfortable and less today. Also notes he had been having increased weight and fluid collection. He has systolic congestive heart failure. He has been on Bumex as an outpatient. Couple weeks ago he had Zaroxolyn added for which he only took 1 dose and had his blood pressure dropped a little low so has not been taking that. He is making plans for gastric surgery to try to help with his weight loss. Denies any chest pain at this time. He does have chronic catheter with urinary retention without it. Review of Systems Narrative: General: No chronic fevers or chronic weight changes. HEENT: No acute changes in vision. No acute hearing loss. No new difficulty swallowing. Heart: No new chest pain or recent issues with coronary disease. Lungs: No history of TB. No chronic lung disease. GI: No history of GI bleeding. No hepatitis. No chronic nausea or vomitting. Renal: No dysuria or frequency. No hematuria Neuro: No acute neurological changes or deficits. Musculoskeletal: No acutely worsening joint pain or swelling. Medications/Allergies Home Medications Medication Instructions Recorded Confirmed Last Taken Type ascorbic acid (vitamin C) [Vitamin 500 mg PO DAILY 08/14/19 01/03/20 01/03/20 History C] aspirin 81 mg PO DAILY 08/14/19 01/03/20 01/03/20 History multivitamin 1 tab PO DAILY 08/14/19 01/03/20 01/03/20 History albuterol sulfate 90 mcg/actuation 1 - 2 inh INHALATION Q6H PRN 09/18/19 01/03/20 Unknown History breath activated powder inhaler,sensor fluticasone propionate 50 2 spray INTRANASAL QPM 09/18/19 01/03/20 01/02/20 History mcg/actuation nasal spray,suspension omeprazole 20 mg capsule,delayed 20 mg PO DAILY 09/18/19 01/03/20 01/03/20 History release potassium chloride 40 meq PO TID #360 tab 11/15/19 01/03/20 01/03/20 12:00 Rx bumetanide 2 mg PO TID 12/26/19 01/03/20 01/03/20 History ferrous sulfate [iron] 325 mg PO BID 01/03/20 01/03/20 01/02/20 History metolazone See Rx Instructions .ROUTE .COMPLEX 01/03/20 01/03/20 Unknown History Allergies Allergy/AdvReac Type Severity Reaction Status Date / Time No Known Allergies Allergy Verified 01/03/20 16:07 PFSH Acute PFSH: Medical History Congestive heart failure HTN (hypertension) SVT (supraventricular tachycardia) Surgical History LAP-BAND surgery status Family History Mother Arrhythmia Social History Smoking and tobacco status: never smoked Alcohol intake: current Alcohol intake frequency: holidays/special occasions only Household members: spouse Current occupational status: employed 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 Morbidly obese HEENT: PERRLA, EOMI. vision grossly normal. Throat clear. Neck: supple, no adenopathy. Heart: Regular rate and rhythm. No murmurs, rubs or gallops. Normal capillary refill. Lungs: Clear to auscultation. No wheezes, rhonchi or rales. Abdomen: Positive bowel sounds. Non-tender, non-distended. No hepat osplenomegaly. No gaurding. Extremities: No clubbing, cyanosis, he has significant pitting edema more so in his pannus and upper thighs. Negative Julissa's. Data : 01/04/20 03:25 01/04/20 03:25 A&P Assessment and plan (1) Congestive heart failure: -This is primary issue today. He has acute on chronic systolic congestive heart failure. Last echocardiogram was in July and was poor quality. We will try to get a contrast study done today. We will go ahead with Lasix 80 mg IV every 6 hours. We will also do potassium. Repeat labs in the morning. If he is diuresed well enough hopeful for discharge tomorrow. Monitor his blood pressure as he is tended to have hypotension with diuresis. Status: Acute (2) Morbid obesity with BMI of 60.0-69.9, adult: Status: Acute (3) UTI (urinary tract infection): Follow-up on urine cultures. Continue with Rocephin IV. Status: Acute Attestations Medical Necessity Statement*: Patient is a 44-year-old gentleman with congestive heart failure requiring inpatient IV treatments and monitoring. Coding Level of Care Code Acute Arts Administrator Or Manager for [facility] Diagnoses Congestive heart failure I50.9 Morbid obesity with BMI of 60.0-69.9, adult E66.01; Z68.44 UTI (urinary tract infection) N39.0
--- NOTE | 2020-01-04 09:16 | PC.CHAP ---
Pastoral Care Encounter/Spiritual Assessment Type of Contact [] Declined crude unit operator visit [] Patient/Family/Request visit [] Outpatient visit [] Follow-up visit [] Physician referral [] Code/Alert [x] Routine visit [] Staff referral [] Actively dying [] Patient sleeping [] Family support [] [] Out of room [] Palliative care [] [] Receiving care in room [] Pre-surgical visit [] Trauma [] Long length of stay [] ICU visit [] Other: Relational/Emotional Strength [] Patient feels connected with others/family/visitors/staff [] Distress [] Loneliness/isolation [] Abandonment Spirituality of Patient [x] Person of Andra [] Attends Denominational of their Andra [x] Believes in Prayer [] Reads Bible or Spiritism materials [] There are Spiritual issues to be addressed Cable Engineer Outside [employer] Interventions [x Prayer [x] Active listening [x] Non-anxious presence [x] Spiritual/emotional support [] Crisis/trauma care [] Spiritual counseling [] Bereavement support [] Provided bereavement packet [] Provided Bible/devotional materials [] Provided toy/stuffed animal, coloring book to patient or family member [] Provided Communion [] Anointing/[place] [] Salvation [x] Completed spiritual assessment [] Other: Impact on Illness or Injury [] Angry [] Fearful [] Anxious [] Often cries [] Exhaustion [] Unable to work [] Unable to attend sikh [] Unable to walk/stand [] Unable to read [] Unable to drive [] Unable to eat/drink [] Unable to sleep [] Unable to be with family [] Patient intubated [] Other: Summary Cable Engineer Outside Plant had met patient before. Patient resting well- working on getting swelling down. Time spent with patient 10 min
[2020-01-04] MEDS: fluticasone nasal spray 16gm Btl 1 SPRAY NASAL ×2 (09:54→18:42)
[2020-01-04] MEDS: potassium chloride ER 10 mEq Tablet 40 MEQ PO (10:02)
[2020-01-04] MEDS: aspirin 81 mg Chew Tablet PO (10:06)
[2020-01-04] MEDS: multivitamin therapeutic Tablet 1 TAB PO (10:06)
[2020-01-04] MEDS: guaiFENesin 600 mg Tablet 1200 MG PO ×2 (10:06→17:02)
[2020-01-04] MEDS: enoxaparin 40 mg/0.4 mL Syringe SUBCUT (10:07)
--- NOTE | 2020-01-04 13:03 | PC.RESP ---
Pulmonary rehab information sent to patient.
--- NOTE | 2020-01-04 18:03 | PC.NURSE ---
Physician notification Dr. Saxena notified via telephone that patient has been sinus tach throughout shift. Patient HR has increased and maintained 110s-120s. Patient reports that he was taking metoprolol at home but it got put on hold because his blood pressures were soft. Patient SBP has maintained 110s-120s today. [place] gave order to start patient on 12.5 of metoprolol BID first dose now, RBVO. Nurse also reported urine output to provider. Physician stated that patient's galdamez has a tendency to clog and gave nurse order to flush catheter PRN, RBVO. Patient also had complaints of nasal stuffiness and reports to nurse that he takes flonase BID at home. Nurse expressed need to provider. Dr. Saxena gave order to change dose to BID, RBVO.
[2020-01-04] MEDS: metoprolol tartrate 25 mg Tablet 12.5 MG PO (18:42)
--- NOTE | 2020-01-04 19:47 | PC.NURSE ---
Rounding Patient put back to bed with assistance. Patient denies pain. Patient is alert and oriented. call light is within reach and will continue to monitor.
[2020-01-04] MEDS: cefTRIAXone 2,000 MG in sodium chloride 0.9% (plus) 50 ML 100 MG IV (21:09)
[2020-01-05] VITALS: BP 118/82; PULSE 100; RESP 24; TEMP 36.5; O2SAT 97
[2020-01-05 04:00] VITALS: BP 112/79; PULSE 99; RESP 23; TEMP 36.4; O2SAT 94
[2020-01-05 04:01] LABS: Basophils # 0.1 10^3/uL (0.0-0.1); Basophils % 0.7 %; Eosinophils # 0.1 10^3/uL (0.0-0.8); Eosinophils % 0.7 %; Hematocrit 38.5 % (42.0-52.0); Hemoglobin 11.7 g/dL (11.7-16.6); Lymphocytes # 1.4 10^3/uL (0.8-4.8); Lymphocytes % 16.4 %; Mean Corpuscular HGB Conc 30.4 g/dL (30.0-36.0); Mean Corpuscular Hemoglobin 23.7 pg (28.0-34.0); Mean Corpuscular Volume 77.9 fL (80-94); Mean Platelet Volume 10.6 fL (7.4-10.4); Monocytes # 0.7 10^3/uL (0.2-0.9); Monocytes % 7.5 %; Neutrophils # 6.43 10^3/uL (1.8-7.7); Neutrophils % 74.5 %; Nucleated Red Blood Cells % 0.5 %; Platelet Count 364 10^3/cmm (130-400); Red Blood Count 4.94 10^6/uL (4.1-5.3); Red Cell Distribution Width 19.2 % (12.1-15.1); White Blood Count 8.6 10^3/uL (4.0-10.0)
[2020-01-05 04:33] LABS: Alanine Aminotransferase 111 U/L (0-41); Albumin Level 3.1 g/dL (3.5-5.2); Alkaline Phosphatase 84 IU/L (40-130); Anion Gap 15.4 (5-19); Aspartate Amino Transferase 171 U/L (0-40); Blood Urea Nitrogen 29 mg/dL (6-20); Calcium 9.2 mg/dL (8.5-10.5); Carbon Dioxide 27 mmol/L (22-29); Chloride 97 mmol/L (98-107); Globulin 4.1 g/dL (1.3-4.6); Glomerular Filtration Rate 90.8 mL/min (90-130); Glucose 103 mg/dL (65-115); Osmolality Calculated 279 mOsm/kg (285-295); Potassium 3.4 mmol/L (3.5-5.1); Sodium 136 mmol/L (136-145); Total Bilirubin 0.9 mg/dL (0.15-1.2); Total Protein 7.2 g/dL (6.6-8.7)
[2020-01-05 04:41] LABS: NT Pro B Type Natriuretic Pept 4780 pg/mL (0-125)
[2020-01-05] MEDS: FUROsemide 10 mg/mL SDV 10mL 80 MG IVP (04:50)
--- NOTE | 2020-01-05 05:47 | PC.NURSE ---
End of shift: Patient has had a uneventful shift and remains alert and oriented. Patient has rested well this shift. Patient has had no complaints of pain. Will continue to monitor.
[2020-01-05 07:08] VITALS: BP 101/77; PULSE 100; RESP 22; TEMP 36.3; O2SAT 95
--- NOTE | 2020-01-05 07:52 | PC.NURSE ---
NOTIFIED DR. CHANDLER OF PATIENT'S REQUEST TO TAKE HIS HOME LACTASE PILLS SO HE CAN DRINK HIS MILK WITH BREAKFAST. DR. CHANDLER ORDERED THAT PATIENT MAY TAKE HIS HOME LACTASE.
[2020-01-05 10:21] VITALS: BP 101/77; PULSE 100; RESP 22; TEMP 36.3; O2SAT 95
[2020-01-05] MEDS: metoprolol tartrate 25 mg Tablet 12.5 MG PO (10:34)
[2020-01-05] MEDS: guaiFENesin 600 mg Tablet 1200 MG PO (10:34)
[2020-01-05] MEDS: fluticasone nasal spray 16gm Btl 1 SPRAY NASAL (10:35)
[2020-01-05] MEDS: multivitamin therapeutic Tablet 1 TAB PO (10:35)
[2020-01-05] MEDS: aspirin 81 mg Chew Tablet PO (10:35)
[2020-01-05] MEDS: pantoprazole DR 40 mg Tablet PO (10:35)
--- NOTE | 2020-01-05 20:21 | P.DS_ITS ---
Discharge Providers Date of Admission: 01/03/20 19:06 Date of Discharge: January 05, 2020 Attending Provider at Admission: Ilya Saxena MD Attending Provider at Discharge: Ilya Saxena MD Primary Care Provider: Ilya Saxnea MD Diagnoses at Discharge Discharge Diagnosis (1) Congestive heart failure: Status: Acute (2) Morbid obesity with BMI of 60.0-69.9, adult: Status: Acute (3) UTI (urinary tract infection): Status: Acute Reason for Visit Reason for Visit: sob, abd swelling, abd pain, shoulder pain Hospital Course Discharge Summary: patient was admitted for chest pain/ abd pain/ dyspnea. He was found to most likely have abd wall pain. He also had acute exacerbation of chf with increased swelling and dyspnea and BNP. He recieved 24 hours of Lasix 80 q 6 hrs. Diuresed over 2 L. BUN was starting to rise indicating we had him dried out. [place] better DC in good condition. Physical Exam Urinary Catheter Management^: [place] Latex: Cath Placed During This Visit: no Reason for Continuing Indwelling Catheter: Chronic Indwelling Urinary Catheter on Admission Discharge Data Data Completed and Pending: Completed Studies During Hospitalization Category Date Time Status XR chest 1V demian ble [id number] Stat Exams 01/03/20 15:51 Completed Pending at discharge Category Date Time Status CV echo lmt wo/w contras [id number] Rout ine Ultrasound 01/04/20 06:59 Taken US/CV paperwork R outine Ultrasound 01/04/20 Taken Labs from last 24 hours 01/05/20 01/05/20 01/05/20 03:26 03:26 03:26 WBC 8.6 RBC 4.94 Hgb 11.7 Hct 38.5 L MCV 77.9 L MCH 23.7 L MCHC 30.4 RDW 19.2 H Plt Count 364 MPV 10.6 H Neut % (Auto) 74.5 Lymph % (Auto) 16.4 [place] % (Auto) 7.5 Eos % (Auto) 0.7 Baso % (Auto) 0.7 Neut # (Auto) 6.43 Lymph # (Auto) 1.4 [place] # (Auto) 0.7 Eos # (Auto) 0.1 Baso # (Auto) 0.1 Nucleated RBC % (a uto) 0.5 Nucleated RBCs # 0.0 Sodium 136 Potassium 3.4 L Chloride 97 L Carbon Dioxide 27 Anion Gap 15.4 BUN 29 H Creatinine 0.9 GFR Calculation 90.8 Glucose 103 Calculated Osmolal ity 279 L Calcium 9.2 Total Bilirubin 0.9 AST 171 H ALT 111 H Alkaline Phosphata se 84 NT-Pro-B Natriuret Pep 4780 H Total Protein 7.2 Albumin 3.1 L Globulin 4.1 Vitals: Last Vital Signs Temp 97.4 F L 01/05/20 10:21 Pulse 100 01/05/20 10:21 Resp 22 H 01/05/20 10:21 BP 101/77 01/05/20 10:21 Pulse Ox 95 01/05/20 10:21 Discharge Plan Discharge Patient Disposition: Home, Self-Care Condition: Stable Prescriptions: New metoprolol tartrate 25 mg Tablet 12.5 mg PO BID Qty: 60 RF: 0 Continued fluticasone propionate [Flonase Allergy Relief] 50 mcg/actuation spray,suspension 2 spray INTRANASAL QPM RF: 0 omeprazole 20 mg capsule,delayed release(DR/EC) 20 mg PO DAILY RF: 0 albuterol sulfate 90 mcg/actuation aero powdr breath act w/sensor 1 - 2 inh INHALATION Q6H PRN (Reason: Shortness Of Breath) RF: 0 potassium chloride 10 mEq Tablet Extended Release 40 meq PO TID Qty: 360 RF: 0 multivitamin Tablet 1 tab PO DAILY RF: 0 ascorbic acid (vitamin C) [Vitamin C] 500 mg Tablet 500 mg PO DAILY RF: 0 aspirin 81 mg Tablet,Chewable 81 mg PO DAILY RF: 0 metolazone 5 mg Tablet See Rx Instructions .ROUTE .COMPLEX RF: 0 ferrous sulfate [iron] 325 mg (65 mg iron) Tablet 325 mg PO BID RF: 0 Discontinued bumetanide 2 mg tablet 2 mg PO TID RF: 0 Discharge Orders: Discharge Order (Routine); Ordered 01/05/20 Ordered By: Ilya Saxena Referrals: Ilya Saxena MD [Primary Care Provider] - (Please, call for an follow-up appiintment follow-up appointment with Dr. Saxena in 1 to 3 days. [phone]) Discharge Diet: Usual diet Discharge Activity: Resume usual activity Patient Instructions: Metoprolol (By mouth), Heart Failure (DC), Urinary Tract Infection in Men (DC), CHF Stoplight Activity Restrictions/Additional Instructions: - continue all home meds the same except; stop bumex; Take Metolazone daily; Restart metoprolol 12.5mg bid. - Weigh yourself daily - Call if increased chest pain or shortness of breath. - Follow up with Dr. Saxena or Tue of next week. Call Tuesday for appt. Discharge Date/Time: 01/05/20 11:13 Discharge Attestations Time Spent in Discharge Care*: greater than 30 min Quality Metrics Clinical Quality Measures During this hospital stay, did patient experience: None Coding Level of Care Code Acute Pipe Coverer And Insulator for Chg Fwd Diagnoses Congestive heart failure I50.9 Morbid obesity with BMI of 60.0-69.9, adult E66.01; Z68.44 UTI (urinary tract infection) N39.0
== END 2020-01-05 11:13 | disposition home or self-care (01) ==
LOC: ER 15:48 → CSU 01-04 16:57
PROVIDERS: Family Medicine; Admitting Provider Family Medicine; PCP Family Medicine; Visit Provider Family Medicine
DX: I11.0 Hypertensive heart disease with heart failure (principal); I50.9 Heart failure, unspecified; E66.01 Morbid (severe) obesity due to excess calories; Z68.44 Body mass index [BMI] 60.0-69.9, adult; N39.0 Urinary tract infection, site not specified; Z79.82 Long term (current) use of aspirin
CPT/HCPCS: 12345; 36415; 71045; 80053; 81001; 81003; 82550; 83605; 83690; 83735; 83880; 84484; 85025; 93005; 96365; 96366; 96372; 96374; 96375; 99282; 99285; C8924; G0378; J0696; J1650; J1940

== ENCOUNTER 2020-03-17 14:43 | Inpatient (IN) | payer BC, SELFPAY ==
[2020-03-17 14:44] VITALS: BP 108/61; PULSE 110; RESP 20; TEMP 37.4; O2SAT 100
--- NOTE | 2020-03-17 15:03 | ED_ITS ---
Documented by User: JOSE Sloan 03/18/20 07:46 HPI - Skin/Abscess/Foreign Bdy General: Chief complaint: Skin/Abscess/Foreign Body Stated complaint: wound Time Seen by Provider: 03/17/20 14:44 History of Present Illness: HPI narrative: Patient comes in via ambulance with complaint of abscess that opened up under his left abdomen area at 130 today. Patient had a lot of drainage foul-smelling from open area has been sore for a few days. Patient had aortic valve replacement month ago where they went through both sides of his groin to do the valve replacement. complaint: abscess/boil Onset (ago): day(s) Tetanus up to date: unsure Severity: severe Quality: aching Pain Consistency: now resolved Relieving factors: topical medication Exacerbating factors: movement Associated symptoms: Reports chills; Deny nausea or vomiting Treatments prior to arrival: OTC topical medication Review of Systems Const: Reports: chills Eyes: Denies: change in vision or blurry vision ENMT: Denies: throat pain or nasal congestion Card: Denies: chest pain or dyspnea on exertion Resp: Denies: dyspnea, productive cough or non-productive cough GI: Denies: abdominal pain, nausea or vomiting : Denies: difficulty urinating Musc: Denies: extremity pain Skin/Breast: Reports: skin tenderness and other (Large abscess draining from under the left panniculus opened up at 130-day has been sore for a few days); Denies: rash Neuro: Denies: headache(s) Psych: Denies: anxiety or depression Parker/Lymph: Denies: easy bruising PFSH ED PFSH: Medical History (Updated 03/17/20 @ 17:35 by Blake French MD) Congestive heart failure HTN (hypertension) SVT (supraventricular tachycardia) Surgical History (Updated 03/17/20 @ 17:32 by Blake French MD) LAP-BAND surgery status S/P TAVR (transcatheter aortic valve replacement) Family History Mother Arrhythmia Social History Smoking and tobacco status: never smoked Alcohol intake: current Alcohol intake frequency: holidays/special occasions only Household members: spouse Current occupational status: employed 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 Physical Exam Const: COMMON NORMALS: no acute distress, average body habitus, patient oriented x3 and well nourished (Extreme BMI) NUTRITIONAL APPEARANCE: obese HENMT: COMMON NORMALS: normocephalic HEAD & SCALP: normal to inspection and normocephalic FACE & SINUS: normal facial exam Eye: COMMON NORMALS: conjunctivae normal GENERAL EYE: appearance normal, both eyes and all related structures CONJUNCTIVA: Yes conjunctivae normal Neck/C-Spine: COMMON NORMALS: no JVD Chest: COMMONS NORMALS: normal inspection of the chest Resp: COMMON NORMALS: normal respiratory effort and clear to auscultation bilaterally AUSCULTATION: clear to auscultation bilaterally Cardio: COMMON NORMALS: no JVD, regular rate and regular rhythm RATE: regular rate RHYTHM: regular rhythm GI: COMMON NORMALS: Normal to inspection, nondistended, normoactive bowel sounds present Extremity: COMMON NORMALS: normal to inspection and full ROM Neuro: COMMON NORMALS: patient oriented x3 Skin: WOUNDS: Yes wounds noted (Under left panniculus has an open wound that has drained quite a bit since his time in the ER when you press on it just squirts out with debris coming out. Brownish and foul smelling) drainage (Large amount) brown and malodorous Course Vital Signs: Vital signs: Vital Signs Temperature 98.3 F 03/18/20 04:00 Pulse Rate 119 H 03/18/20 04:00 Respiratory Rate 18 03/18/20 04:00 Blood Pressure 96/56 03/18/20 04:00 Pulse Oximetry 98 03/18/20 04:00 MDM - Skin/Abscess/Foreign Bdy MDM Narrative: Medical decision making narrative: Discussed case with Dr. Thompson and she came at bedside and observe wound with me discussed case Dr. chung believe the OR table can support this patient's weight patient just recently had a aortic valve replacement called a TAV AR procedure a month ago where they went in both sides going to do this procedure. Dr. Thompson agrees accept care of this patient for possible transfer patient requesting [facility]. Lab Data: Labs: Lab Results 03/17/20 03/17/20 03/17/20 Range/Units 15:09 15:09 15:15 WBC 7.7 (4.0-10.0) 10^3/ uL RBC 3.65 L (4.1-5.3) 10^6/u L Hgb 9.2 L (11.7-16.6) g/dL Hct 30.0 L (42.0-52.0) % MCV 82.2 (80-94) fL MCH 25.2 L (28.0-34.0) pg MCHC 30.7 (30.0-36.0) g/dL RDW 19.9 H (12.1-15.1) % Plt Count 307 (130-400) 10^3/c mm MPV 9.1 (7.4-10.4) fL Neut % (Auto) 80.0 % Lymph % (Auto) 8.6 % [place] % (Auto) 9.1 % Eos % (Auto) 1.3 % Baso % (Auto) 0.3 % Neut # (Auto) 6.13 (1.8-7.7) 10^3/u L Lymph # (Auto) 0.7 L (0.8-4.8) 10^3/u L [place] # (Auto) 0.7 (0.2-0.9) 10^3/u L Eos # (Auto) 0.1 (0.0-0.8) 10^3/u L Baso # (Auto) 0.0 (0.0-0.1) 10^3/u L Nucleated RBC % (a uto) 0 % Nucleated RBCs # 0.0 /100WBC Sodium 131 L (136-145) mmol/L Potassium 4.2 (3.5-5.1) mmol/L Chloride 96 L (98-107) mmol/L Carbon Dioxide 25 (22-29) mmol/L Anion Gap 14.2 (5-19) BUN 21 H (6-20) mg/dL Creatinine 0.8 (0.7-1.2) mg/dL GFR Calculation 104.1 (90-130) mL/min Glucose 111 (65-115) mg/dL Calculated Osmolal ity 276 L (285-295) mOsm/k g Calcium 8.8 (8.5-10.5) mg/dL Total Bilirubin 1.0 (0.15-1.2) mg/dL AST 30 (0-40) U/L ALT 10 (0-41) U/L Alkaline Phosphata se 126 (40-130) IU/L Total Protein 7.9 (6.6-8.7) g/dL Albumin 2.9 L (3.5-5.2) g/dL Globulin 5.0 H (1.3-4.6) g/dL Urine Color Yellow (Yellow) Urine Appearance Clear (CLEAR) Urine pH 5 (5-7) Ur Specific Gravit y 1.010 (1.005-1.030) Urine Protein Neg (Negative) Urine Glucose (UA) Norm (Normal) Urine Ketones Negative (Negative) Urine Blood Neg (Negative) Urine Nitrate Negative (Negative) Urine Bilirubin Neg (Negative) Urine Urobilinogen Norm (Negative) mg/dL Ur Leukocyte Juanita ase Negative (Negative) Discharge Plan Discharge Patient Disposition: Admitted As Inpatient Admit Provider: Ilya Saxena Discharge Date/Time: 03/17/20 18:23 Coding Level of Care Code ED Diesel Tractor Operator for Chg Fwd Exam Comprehensive Documented by User: Miracle Thompson MD 03/17/20 20:31 HPI - Skin/Abscess/Foreign Bdy General: Chief complaint: Skin/Abscess/Foreign Body Stated complaint: wound Time Seen by Provider: 03/17/20 14:44 PFSH ED PFSH: Medical History (Updated 03/17/20 @ 17:35 by Blake French MD) Congestive heart failure HTN (hypertension) SVT (supraventricular tachycardia) Surgical History (Updated 03/17/20 @ 17:32 by Blake French MD) LAP-BAND surgery status S/P TAVR (transcatheter aortic valve replacement) Family History Mother Arrhythmia Social History Smoking and tobacco status: never smoked Alcohol intake: current Alcohol intake frequency: holidays/special occasions only Household members: spouse 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 The patient has a large abscess in his left groin under his pannus. This started spontaneously draining today and drained a very large amount of purulent drainage. I am concerned about the extent of the abscess into his abdominal wall and/or groin area. He recently had instrumentation in the groin but the abscess does not seem to be in that same area. Patient is too large for our CT scanner. We spoke with Dr. French to get his input and initially he did not feel like he had anything to offer the patient. He did come down to the ER however and use suction to clean out the rest of the wound and then packed it. He recommended that the patient be admitted for IV antibiotics I spoke with Dr. Saxena who agreed to take the patient. I did consult with [facility] but unfortunately they have absolutely no bed availability at this time. Vital Signs: Vital signs: Vital Signs Temperature 98.3 F 03/18/20 04:00 Pulse Rate 119 H 03/18/20 04:00 Respiratory Rate 18 03/18/20 04:00 Blood Pressure 96/56 03/18/20 04:00 Pulse Oximetry 98 03/18/20 04:00 MDM - Skin/Abscess/Foreign Bdy Lab Data: Labs: Lab Results 03/17/20 03/17/20 03/17/20 Range/Units 15:09 15:09 15:15 WBC 7.7 (4.0-10.0) 10^3/ uL RBC 3.65 L (4.1-5.3) 10^6/u L Hgb 9.2 L (11.7-16.6) g/dL Hct 30.0 L (42.0-52.0) % MCV 82.2 (80-94) fL MCH 25.2 L (28.0-34.0) pg MCHC 30.7 (30.0-36.0) g/dL RDW 19.9 H (12.1-15.1) % Plt Count 307 (130-400) 10^3/c mm MPV 9.1 (7.4-10.4) fL Neut % (Auto) 80.0 % Lymph % (Auto) 8.6 % [place] % (Auto) 9.1 % Eos % (Auto) 1.3 % Baso % (Auto) 0.3 % Neut # (Auto) 6.13 (1.8-7.7) 10^3/u L Lymph # (Auto) 0.7 L (0.8-4.8) 10^3/u L [place] # (Auto) 0.7 (0.2-0.9) 10^3/u L Eos # (Auto) 0.1 (0.0-0.8) 10^3/u L Baso # (Auto) 0.0 (0.0-0.1) 10^3/u L Nucleated RBC % (a uto) 0 % Nucleated RBCs # 0.0 /100WBC Sodium 131 L (136-145) mmol/L Potassium 4.2 (3.5-5.1) mmol/L Chloride 96 L (98-107) mmol/L Carbon Dioxide 25 (22-29) mmol/L Anion Gap 14.2 (5-19) BUN 21 H (6-20) mg/dL Creatinine 0.8 (0.7-1.2) mg/dL GFR Calculation 104.1 (90-130) mL/min Glucose 111 (65-115) mg/dL Calculated Osmolal ity 276 L (285-295) mOsm/k g Calcium 8.8 (8.5-10.5) mg/dL Total Bilirubin 1.0 (0.15-1.2) mg/dL AST 30 (0-40) U/L ALT 10 (0-41) U/L Alkaline Phosphata se 126 (40-130) IU/L Total Protein 7.9 (6.6-8.7) g/dL Albumin 2.9 L (3.5-5.2) g/dL Globulin 5.0 H (1.3-4.6) g/dL Urine Color Yellow (Yellow) Urine Appearance Clear (CLEAR) Urine pH 5 (5-7) Ur Specific Gravit y 1.010 (1.005-1.030) Urine Protein Neg (Negative) Urine Glucose (UA) Norm (Normal) Urine Ketones Negative (Negative) Urine Blood Neg (Negative) Urine Nitrate Negative (Negative) Urine Bilirubin Neg (Negative) Urine Urobilinogen Norm (Negative) mg/dL Ur Leukocyte Juanita ase Negative (Negative) Discharge Plan Discharge Patient Disposition: Admitted As Inpatient Admit Provider: Ilya Saxena Discharge Date/Time: 03/17/20 18:23 Coding Level of Care Code ED Diesel Tractor Operator for Chg Fwd Exam Comprehensive
[2020-03-17 15:12] VITALS: PULSE 109; RESP 24; O2SAT 95
[2020-03-17 15:19] LABS: Basophils % 0.3 %; Eosinophils # 0.1 10^3/uL (0.0-0.8); Eosinophils % 1.3 %; Hemoglobin 9.2 g/dL (11.7-16.6); Lymphocytes # 0.7 10^3/uL (0.8-4.8); Lymphocytes % 8.6 %; Mean Corpuscular HGB Conc 30.7 g/dL (30.0-36.0); Mean Corpuscular Hemoglobin 25.2 pg (28.0-34.0); Mean Corpuscular Volume 82.2 fL (80-94); Mean Platelet Volume 9.1 fL (7.4-10.4); Monocytes # 0.7 10^3/uL (0.2-0.9); Monocytes % 9.1 %; Neutrophils # 6.13 10^3/uL (1.8-7.7); Nucleated Red Blood Cells % 0 %; Platelet Count 307 10^3/cmm (130-400); Red Blood Count 3.65 10^6/uL (4.1-5.3); Red Cell Distribution Width 19.9 % (12.1-15.1); White Blood Count 7.7 10^3/uL (4.0-10.0)
[2020-03-17 15:31] LABS: Add Urine Microscopic? NO
[2020-03-17 15:37] LABS: Alanine Aminotransferase 10 U/L (0-41); Albumin Level 2.9 g/dL (3.5-5.2); Alkaline Phosphatase 126 IU/L (40-130); Anion Gap 14.2 (5-19); Aspartate Amino Transferase 30 U/L (0-40); Blood Urea Nitrogen 21 mg/dL (6-20); Calcium 8.8 mg/dL (8.5-10.5); Carbon Dioxide 25 mmol/L (22-29); Chloride 96 mmol/L (98-107); Glomerular Filtration Rate 104.1 mL/min (90-130); Glucose 111 mg/dL (65-115); Osmolality Calculated 276 mOsm/kg (285-295); Potassium 4.2 mmol/L (3.5-5.1); Sodium 131 mmol/L (136-145); Total Protein 7.9 g/dL (6.6-8.7)
[2020-03-17 15:38] LABS: Bilirubin Urine Neg (Negative); Blood Urine Neg (Negative); Glucose Urine UA Norm (Normal); Ketones Urine Negative (Negative); Leukocyte Esterase Urine Negative (Negative); Nitrate Urine Negative (Negative); Protein Urine Neg (Negative); Urine Appearance Clear (CLEAR); Urine Color Yellow (Yellow); Urobilinogen Urine Norm (Negative); pH Urine 5 (5-7)
--- NOTE | 2020-03-17 17:23 | PM.CONSULT ---
Providers/Reason For Consult Consulting Physican/Specialty*: General Surgery Blake French MD Reason for Consult*: Abdominal wall abscess. Requesting Physcian: Donna / Marshal Johnson Primary Care Provider: Ilya Saxena MD History of Present Illness History of Present Illness Damian Quesada is a 44 year old male who I was asked to evaluate in the emergency room today for a draining abdominal wall abscess. The patient says that he has noticed some soreness in the left lower quadrant of his abdomen for several days. He initially ran a few fevers but says that is been better over the past day or 2. He said the wound opened up and drained 1/2 gallon of pus and fluid at home before he came into the emergency department. The patient says he has never had this happen before, and does not recall ever having an abscess. Due to his super obesity, he could not be evaluated in the CAT scanner for this. The patient just had a TAVR procedure on his aortic valve a month ago at [facility] in [place] due to a congenital bicuspid and calcified aortic valve. Both groins were accessed at that time. It sounds like he had a postoperative pseudoaneurysm on the left side following the procedure. [facility] was contacted at the request of family in hopes that he could be further evaluated and treated there, but apparently they have no beds available. Dr. Thompson asked if I would evaluate the patient in the emergency room. Cultures of the drainage have already been taken. Review of Systems General: Reports: 10 or more systems reviewed and unremarkable except in HPI and below Const: Reports: fever(s) and chills GI: Reports: abdominal pain Meds/Allergies Home Medications and Allergies Home Medications Medication Instructions Recorded Confirmed Last Taken Type ascorbic acid (vitamin C) [Vitamin 500 mg PO DAILY 08/14/19 03/17/20 03/17/20 History C] multivitamin 1 tab PO DAILY 08/14/19 03/17/20 03/17/20 History albuterol sulfate 90 mcg/actuation 1 - 2 inh INHALATION Q6H PRN 09/18/19 03/17/20 Unknown History breath activated powder inhaler,sensor fluticasone propionate 50 2 spray INTRANASAL QPM 09/18/19 03/17/20 01/02/20 History mcg/actuation nasal spray,suspension omeprazole 20 mg capsule,delayed 20 mg PO DAILY 09/18/19 03/17/20 03/17/20 History release bumetanide 2 mg PO BID 03/17/20 03/17/20 03/17/20 History clopidogrel [Plavix] 75 mg PO DAILY 03/17/20 03/17/20 03/17/20 History lisinopril 2.5 mg PO DAILY 03/17/20 03/17/20 03/17/20 History loratadine 10 mg PO DAILY 03/17/20 03/17/20 03/17/20 History metoprolol tartrate 25 mg PO BID 03/17/20 03/17/20 03/17/20 History potassium chloride 40 meq PO BID 03/17/20 03/17/20 03/17/20 History spironolactone 25 mg PO DAILY 03/17/20 03/17/20 03/17/20 History Allergies Allergy/AdvReac Type Severity Reaction Status Date / Time No Known Allergies Allergy Verified 03/17/20 14:48 PFSH Acute PFSH: Medical History (Updated 03/17/20 @ 17:35 by Blake French MD) Congestive heart failure HTN (hypertension) SVT (supraventricular tachycardia) Surgical History (Updated 03/17/20 @ 17:32 by Blake French MD) LAP-BAND surgery status S/P TAVR (transcatheter aortic valve replacement) Family History Mother Arrhythmia Social History Smoking and tobacco status: never smoked Alcohol intake: current Alcohol intake frequency: holidays/special occasions only Household members: spouse Current occupational status: employed 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 He is super obese. His lungs seem clear and his heart is regular. His abdomen is morbidly/super obese. Upon lifting his pannus, and the skin crease underneath on the left side he has a somewhat necrotic area of skin measuring perhaps 3 cm diameter. A Yankauer suction tip was passed into this, realizing a subcutaneous abscess cavity that measures perhaps 4 to 6 inches and almost every direction. Only some serosanguineous fluid was left in the wound, however. The wound was packed with a strip of 1 inch Nu Gauze. Urinary Catheter Management^: Kuhn: Cath Placed During This Visit: yes Urinary Catheter Date of Insertion: 03/17/20 Urinary Catheter Time of Insertion: 15:15 Data Micro: Micro: Microbiology 03/17/20 15:09 Blood Culture - Pr eliminary Blood SPECIMEN COLLE PATRICIA 03/17/20 15:00 Blood Culture - Pr eliminary Blood SPECIMEN [facility] PATRICIA A&P Assessment and plan (1) Subcutaneous abscess: Fortunately, it appears that the vast majority of this had already drained spontaneously before I saw the patient. Await culture results. The emergency room physician feels that the patient should probably be admitted if the hospitalist service is in agreement due to his infection/drained abscess in addition to his previous and recent cardiac procedure, given that there are no beds apparently available at [facility] at this time. I will be available if needed, but otherwise I suspect the patient should do well with daily Nu Gauze dressing changes involving his abscess cavity. Status: Acute Consult Attestations Medical Necessity Statement: See admitting service's notation. Coding Level of Care Code Acute Operations Forester for [facility] Diagnoses Subcutaneous abscess L02.91
[2020-03-17 18:13] VITALS: BP 90/53; PULSE 109; RESP 20; O2SAT 95
[2020-03-17 20:00] VITALS: BP 129/84; PULSE 98; RESP 18; TEMP 36.8; O2SAT 94
[2020-03-17 21:08] VITALS: PULSE 81; RESP 16; O2SAT 97
[2020-03-17] MEDS: piperacillin-tazobactam 3.375 GM in sodium chloride 0.9% (plus) 50 ML IV (21:38)
--- NOTE | 2020-03-17 22:37 | PC.PHAR ---
Pharmacokinetic dosing service Date: 03/18/20 Time: 2229 Objective: Patient: Damian Quesdaa Floor: 256-2 Age: 44 yo Serum creatinine: 0.8 mg/dL Height: 73.0 Inches Weight (kg): 208.652 Diagnosis: Relevant medical/social history: Cultures and sensitivities: Other labs: Assessment: IBW (kg): 79.90 Dosing wt(kg): 208.652 Estimated Creatinine clearance (ml/min): 130 Clearance limited to 130 ml/min to reduce risk of overdosing. CRCL method: Cockcroft and Gault using ibw(default). Drug selected: Vancomycin Loading dose (mg): 0 Vd (liters): 187.8 (factor used: 0.9 L/kg) Tim (hr-1): 0.112 Half life (hrs): 6.19 Recommended dose: 2500 mg Interval: 8 hrs Infusion time (hrs): 1.5 Predicted peak (mcg/mL): 20.7 Predicted trough (mcg/mL): 10.00 Total body weight is being used for vancomycin dosing. Renal function is stable [ ] /unstable [ ] Recommendations: Give Vancomycin 2500 mg q 8 hrs with an expected Cpeak of 20.7 mcg/ml and an expected Ctrough of 10.00 mcg/ml Renal dosing of other antibiotics (review renal dosing of other medications and list guidelines here): Thank you for the consult, will continue to follow. Signature: Sunita Buck [facility]
[2020-03-18] VITALS: BP 132/74; PULSE 99; RESP 18; TEMP 36.9; O2SAT 97
[2020-03-18 04:00] VITALS: BP 96/56; PULSE 119; RESP 18; TEMP 36.8; O2SAT 98
[2020-03-18 05:34] LABS: Basophils % 0.4 %; Eosinophils # 0.2 10^3/uL (0.0-0.8); Hematocrit 28.8 % (42.0-52.0); Hemoglobin 8.5 g/dL (11.7-16.6); Lymphocytes # 0.8 10^3/uL (0.8-4.8); Mean Corpuscular HGB Conc 29.5 g/dL (30.0-36.0); Mean Corpuscular Hemoglobin 24.8 pg (28.0-34.0); Mean Platelet Volume 9.4 fL (7.4-10.4); Monocytes # 0.6 10^3/uL (0.2-0.9); Monocytes % 8.3 %; Neutrophils # 5.06 10^3/uL (1.8-7.7); Neutrophils % 75.3 %; Nucleated Red Blood Cells % 0.3 %; Platelet Count 299 10^3/cmm (130-400); Red Blood Count 3.43 10^6/uL (4.1-5.3); Red Cell Distribution Width 20.4 % (12.1-15.1); White Blood Count 6.7 10^3/uL (4.0-10.0)
[2020-03-18 05:56] LABS: C Reactive Protein 242.6 mg/L (0.0-4.9)
[2020-03-18 05:57] LABS: Anion Gap 15.7 (5-19); Blood Urea Nitrogen 20 mg/dL (6-20); Calcium 8.8 mg/dL (8.5-10.5); Carbon Dioxide 26 mmol/L (22-29); Chloride 96 mmol/L (98-107); Glomerular Filtration Rate 121.4 mL/min (90-130); Glucose 101 mg/dL (65-115); Osmolality Calculated 281 mOsm/kg (285-295); Potassium 3.7 mmol/L (3.5-5.1); Sodium 134 mmol/L (136-145)
[2020-03-18] MEDS: piperacillin-tazobactam 3.375 GM in sodium chloride 0.9% (plus) 50 ML IV ×3 (06:29→22:09)
--- NOTE | 2020-03-18 06:53 | PM.HP ---
Providers/Chief Complaint Admitting Physician: Ilya Saxena MD Primary Care Provider: Ilya Saxena MD Chief Complaint: wound History of Present Illness Damian Quesada is a 44 year old male with a history of a TAVR 1 month ago for a congenital bicuspid calcified valve and congestive heart failure. Patient had had an ejection fraction around 15 to 20%. He is morbidly obese. He states that he had some excoriation on his left pannus at the fold. He states that this is not too uncommon form. Had a little bit of pain in his abdomen on that side but nothing significant. No fevers or chills. On the afternoon of his admission this excoriation opened up and drained what he thinks was about a half a gallon of pus and blood. He came to the emergency room for this. In the ER Dr. French was able to suction out some more and explored the wound. Overall this morning he is feeling okay. Still having quite a bit of drainage though from this. Packing was changed this morning with foul-smelling drainage. Review of Systems Narrative: General: No chronic fevers or chronic weight changes. HEENT: No acute changes in vision. No acute hearing loss. No new difficulty swallowing. Heart: No new chest pain or recent issues with coronary disease. Lungs: No history of TB. No chronic lung disease. GI: No history of GI bleeding. No hepatitis. No chronic nausea or vomitting. Renal: No dysuria or frequency. No hematuria Neuro: No acute neurological changes or deficits. Musculoskeletal: No acutely worsening joint pain or swelling. Medications/Allergies Home Medications Medication Instructions Recorded Confirmed Last Taken Type ascorbic acid (vitamin C) [Vitamin 500 mg PO DAILY 08/14/19 03/17/20 03/17/20 History C] multivitamin 1 tab PO DAILY 08/14/19 03/17/20 03/17/20 History albuterol sulfate 90 mcg/actuation 1 - 2 inh INHALATION Q6H PRN 09/18/19 03/17/20 Unknown History breath activated powder inhaler,sensor fluticasone propionate 50 2 spray INTRANASAL QPM 09/18/19 03/17/20 01/02/20 History mcg/actuation nasal spray,suspension omeprazole 20 mg capsule,delayed 20 mg PO DAILY 09/18/19 03/17/20 03/17/20 History release bumetanide 2 mg PO BID 03/17/20 03/17/20 03/17/20 History clopidogrel [Plavix] 75 mg PO DAILY 03/17/20 03/17/20 03/17/20 History lisinopril 2.5 mg PO DAILY 03/17/20 03/17/20 03/17/20 History loratadine 10 mg PO DAILY 03/17/20 03/17/20 03/17/20 History metoprolol tartrate 25 mg PO BID 03/17/20 03/17/20 03/17/20 History potassium chloride 40 meq PO BID 03/17/20 03/17/20 03/17/20 History spironolactone 25 mg PO DAILY 03/17/20 03/17/20 03/17/20 History Allergies Allergy/AdvReac Type Severity Reaction Status Date / Time No Known Allergies Allergy Verified 03/17/20 14:48 PFSH Acute PFSH: Medical History (Updated 03/17/20 @ 17:35 by Blake French MD) Congestive heart failure HTN (hypertension) SVT (supraventricular tachycardia) Surgical History (Updated 03/17/20 @ 17:32 by Blake French MD) LAP-BAND surgery status S/P TAVR (transcatheter aortic valve replacement) Family History Mother Arrhythmia Social History Smoking and tobacco status: never smoked Alcohol intake: current Alcohol intake frequency: holidays/special occasions only Household members: spouse Current occupational status: employed 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 Morbidly obese. HEENT: PERRLA, EOMI. vision grossly normal. Throat clear. Neck: supple, no adenopathy. Heart: Regular rate and rhythm. No murmurs, rubs or gallops. Normal capillary refill. Lungs: Clear to auscultation. No wheezes, rhonchi or rales. Abdomen: Positive bowel sounds. Non-tender, non-distended. No hepatosplenomegaly. No gaurding. Packing was removed with foul-smelling drainage accompanying it. No significant surrounding erythema. Extremities: No clubbing, cyanosis, he has chronic 2+ edema. Negative Julissa's. Urinary Catheter Management^: Kuhn: Cath Placed During This Visit: yes Reason for Continuing Indwelling Catheter: Acute Urinary Retention or Obstruction Urinary Catheter Date of Insertion: 03/17/20 Urinary Catheter Time of Insertion: 15:15 Data : 03/19/20 04:45 03/19/20 04:45 Micro: Microbiology 03/17/20 15:09 Blood Culture - Preliminary Blood SPECIMEN COLLECTED 03/17/20 15:00 Blood Culture - Preliminary Blood SPECIMEN COLLECTED A&P Assessment and plan (1) Subcutaneous abscess: -Presume this started with the excoriation under his pannus. His C-reactive protein was markedly elevated. I think he is at high risk for developing worsening infection and possible necrotizing fasciitis. We will monitor closely for signs of this. Continue vancomycin and Zosyn for now. Follow-up on wound cultures and blood cultures. Status: Acute (2) Super obesity: Status: Acute (3) Congestive heart failure: Clinically stable at this time. Continue with his home medications. Status: Acute Attestations Medical Necessity Statement*: Patient admitted to the hospital serious infection requiring continued inpatient treatments with IV antibiotics and close monitoring. Coding Level of Care Code Acute Kick Press Operator for [facility] F[facility] Diagnoses Subcutaneous abscess L02.91 Super obesity E66.9 Congestive heart failure I50.9
[2020-03-18 08:00] VITALS: BP 112/75; PULSE 92; RESP 20; TEMP 36.5; O2SAT 96
[2020-03-18] MEDS: lisinopril 2.5 mg Tablet PO (08:51)
[2020-03-18] MEDS: ascorbic acid 500 mg Tablet PO (08:51)
[2020-03-18] MEDS: potassium chloride ER 10 mEq Tablet 40 MEQ PO ×2 (08:51→18:40)
[2020-03-18] MEDS: clopidogrel 75 mg Tablet PO (08:51)
[2020-03-18] MEDS: loratadine 10 mg Tablet PO (08:51)
[2020-03-18] MEDS: metoprolol tartrate 25 mg Tablet PO ×2 (08:51→18:40)
[2020-03-18] MEDS: pantoprazole DR 40 mg Tablet PO (08:51)
[2020-03-18] MEDS: bumetanide 1 mg Tablet 2 MG PO ×2 (08:52→18:40)
[2020-03-18] MEDS: spironolactone 25 mg Tablet PO (08:52)
[2020-03-18 12:00] VITALS: BP 105/72; PULSE 124; RESP 22; TEMP 37.1; O2SAT 96
[2020-03-18 15:12] VITALS: BP 115/78; PULSE 104; RESP 24; TEMP 37.1; O2SAT 96
[2020-03-18 18:12] LABS: Vancomycin Trough 29.8 ug/mL (10-15)
[2020-03-18] MEDS: fluticasone nasal spray 16gm Btl 2 SPRAY INTRANASAL (18:41)
[2020-03-18 20:00] VITALS: BP 107/74; PULSE 90; RESP 20; TEMP 37.1; O2SAT 97
[2020-03-19] VITALS: BP 110/77; PULSE 86; RESP 19; TEMP 36.6; O2SAT 98
[2020-03-19 04:00] VITALS: BP 91/61; PULSE 96; RESP 18; TEMP 36.6; O2SAT 95
[2020-03-19] MEDS: piperacillin-tazobactam 3.375 GM in sodium chloride 0.9% (plus) 50 ML IV ×3 (05:33→21:03)
[2020-03-19 05:39] LABS: Basophils % 0.5 %; Eosinophils # 0.3 10^3/uL (0.0-0.8); Eosinophils % 5.3 %; Hematocrit 29.7 % (42.0-52.0); Hemoglobin 8.9 g/dL (11.7-16.6); Lymphocytes # 0.6 10^3/uL (0.8-4.8); Lymphocytes % 9.9 %; Mean Corpuscular Hemoglobin 25.1 pg (28.0-34.0); Mean Corpuscular Volume 83.9 fL (80-94); Mean Platelet Volume 9.6 fL (7.4-10.4); Monocytes # 0.5 10^3/uL (0.2-0.9); Monocytes % 8.7 %; Neutrophils % 74.3 %; Nucleated Red Blood Cells % 0.3 %; Platelet Count 338 10^3/cmm (130-400); Red Blood Count 3.54 10^6/uL (4.1-5.3); Red Cell Distribution Width 20.3 % (12.1-15.1); White Blood Count 6.1 10^3/uL (4.0-10.0)
[2020-03-19 06:19] LABS: Alanine Aminotransferase 10 U/L (0-41); Albumin Level 2.7 g/dL (3.5-5.2); Alkaline Phosphatase 119 IU/L (40-130); Anion Gap 14.1 (5-19); Aspartate Amino Transferase 30 U/L (0-40); Blood Urea Nitrogen 18 mg/dL (6-20); Carbon Dioxide 27 mmol/L (22-29); Chloride 97 mmol/L (98-107); Globulin 4.8 g/dL (1.3-4.6); Glomerular Filtration Rate 121.4 mL/min (90-130); Glucose 109 mg/dL (65-115); Osmolality Calculated 280 mOsm/kg (285-295); Potassium 4.1 mmol/L (3.5-5.1); Sodium 134 mmol/L (136-145); Total Bilirubin 0.8 mg/dL (0.15-1.2); Total Protein 7.5 g/dL (6.6-8.7)
--- NOTE | 2020-03-19 07:28 | PM.PN ---
Subjective Subjective: Interval history: He feels like things may be a little bit better today. He thinks he may have had less drainage from this yesterday. No fevers or chills. Vitals/I&O/Wt Last Vital Signs Temp 97.8 F 03/19/20 04:00 Pulse 96 03/19/20 04:00 Resp 18 03/19/20 04:00 BP 91/61 03/19/20 04:00 Pulse Ox 95 03/19/20 04:00 03/18/20 03/19/20 03/19/20 22:59 06:59 14:59 Intake Total 50 / 390 50 / 390 Output Total 900 / 2000 1100 / 2000 Balance -850 / -1610 -1050 / -1610 Weight last 48 hrs Weight 460 lb Physical Exam Narrative: EXAM NARRATIVE: General: No acute distress, Alert. Morbidly obese. HEENT: PERRLA, EOMI. vision grossly normal. Throat clear. Neck: supple, no adenopathy. Heart: Regular rate and rhythm. No murmurs, rubs or gallops. Normal capillary refill. Lungs: Clear to auscultation. No wheezes, rhonchi or rales. Abdomen: Positive bowel sounds. Non-tender, non-distended. No hepatosplenomegaly. No gaurding. Packing was removed with with still significant drainage accompanying it but not as bad as yesterday and there is not nearly as much of an odor to the drainage as yesterday. No significant surrounding erythema. Extremities: No clubbing, cyanosis, he has chronic 2+ edema. Negative Julissa's. Urinary Catheter Management^: Kuhn: Cath Placed During This Visit: yes Reason for Continuing Indwelling Catheter: Assist healing open wound Urinary Catheter Date of Insertion: 03/17/20 Urinary Catheter Time of Insertion: 15:15 Data : 03/19/20 04:45 03/19/20 04:45 Micro: Microbiology 03/17/20 15:09 Blood Culture - Preliminary Blood NEGATIVE TO DATE 03/17/20 15:00 Blood Culture - Preliminary Blood NEGATIVE TO DATE 03/17/20 15:15 Wound Culture - Preliminary Abdomen Gram Negative Rods A&P Assessment and plan (1) Subcutaneous abscess: -Presume this started with the excoriation under his pannus. His C-reactive protein was markedly elevated yesterday but has improved some today. I think he is still at high risk for developing worsening infection and possible necrotizing fasciitis. We will monitor closely for signs of this. Continue vancomycin and Zosyn for now. It appears that gram-negative are present on Gram stain. Follow-up on wound cultures and blood cultures. Status: Acute (2) Super obesity: Status: Acute (3) Congestive heart failure: Clinically stable at this time. Continue with his home medications. Status: Acute Attestations Medical Necessity Statement*: 44-year-old male with severe abscess requiring continued IV treatments and monitoring in the inpatient setting. Coding Level of Care Code Acute Staffing Coordinator for [facility] Fwd Diagnoses Subcutaneous abscess L02.91 Super obesity E66.9 Congestive heart failure I50.9
[2020-03-19 08:00] VITALS: BP 115/71; PULSE 102; RESP 22; TEMP 36.8; O2SAT 97
[2020-03-19] MEDS: ascorbic acid 500 mg Tablet PO (09:38)
[2020-03-19] MEDS: bumetanide 1 mg Tablet 2 MG PO ×2 (09:38→16:49)
[2020-03-19] MEDS: loratadine 10 mg Tablet PO (09:38)
[2020-03-19] MEDS: lisinopril 2.5 mg Tablet PO (09:38)
[2020-03-19] MEDS: clopidogrel 75 mg Tablet PO (09:38)
[2020-03-19] MEDS: pantoprazole DR 40 mg Tablet PO (09:39)
[2020-03-19] MEDS: spironolactone 25 mg Tablet PO (09:39)
[2020-03-19] MEDS: metoprolol tartrate 25 mg Tablet PO (09:39)
[2020-03-19] MEDS: potassium chloride ER 10 mEq Tablet 40 MEQ PO ×2 (09:39→16:50)
[2020-03-19] MEDS: ferrous sulfate EC 325 mg Tablet PO ×3 (09:43→16:50)
[2020-03-19 11:46] VITALS: BP 91/66; PULSE 96; RESP 22; TEMP 35.6; O2SAT 92
[2020-03-19 15:31] VITALS: BP 92/60; PULSE 78; RESP 18; TEMP 36.9; O2SAT 94
[2020-03-19] MEDS: fluticasone nasal spray 16gm Btl 2 SPRAY INTRANASAL (16:51)
[2020-03-19 19:49] VITALS: BP 97/66; PULSE 84; RESP 20; TEMP 37.2; O2SAT 99
[2020-03-20] VITALS: BP 102/69; PULSE 87; RESP 18; TEMP 36.6; O2SAT 98
[2020-03-20 04:46] VITALS: BP 103/69; PULSE 93; RESP 20; TEMP 37.2; O2SAT 98
[2020-03-20 05:37] LABS: Basophils % 0.6 %; Eosinophils # 0.4 10^3/uL (0.0-0.8); Eosinophils % 6.5 %; Hematocrit 30.9 % (42.0-52.0); Hemoglobin 9.1 g/dL (11.7-16.6); Lymphocytes # 0.7 10^3/uL (0.8-4.8); Lymphocytes % 11.5 %; Mean Corpuscular HGB Conc 29.4 g/dL (30.0-36.0); Mean Corpuscular Volume 84.9 fL (80-94); Mean Platelet Volume 9.7 fL (7.4-10.4); Monocytes # 0.5 10^3/uL (0.2-0.9); Monocytes % 7.9 %; Neutrophils # 4.68 10^3/uL (1.8-7.7); Neutrophils % 72.4 %; Nucleated Red Blood Cells % 0.5 %; Platelet Count 358 10^3/cmm (130-400); Red Blood Count 3.64 10^6/uL (4.1-5.3); Red Cell Distribution Width 20.4 % (12.1-15.1); White Blood Count 6.5 10^3/uL (4.0-10.0)
[2020-03-20] MEDS: piperacillin-tazobactam 3.375 GM in sodium chloride 0.9% (plus) 50 ML IV ×3 (05:49→22:14)
[2020-03-20 06:03] LABS: Blood Urea Nitrogen 15 mg/dL (6-20); Calcium 8.1 mg/dL (8.5-10.5); Carbon Dioxide 25 mmol/L (22-29); Chloride 99 mmol/L (98-107); Glomerular Filtration Rate 121.4 mL/min (90-130); Glucose 101 mg/dL (65-115); Osmolality Calculated 279 mOsm/kg (285-295); Sodium 134 mmol/L (136-145)
[2020-03-20 06:07] LABS: C Reactive Protein 88.9 mg/L (0.0-4.9)
[2020-03-20 07:35] VITALS: BP 106/68; PULSE 86; RESP 22; TEMP 36.9; O2SAT 98
[2020-03-20] MEDS: metoprolol tartrate 25 mg Tablet PO ×2 (10:07→18:37)
[2020-03-20] MEDS: clopidogrel 75 mg Tablet PO (10:07)
[2020-03-20] MEDS: ferrous sulfate EC 325 mg Tablet PO ×3 (10:07→18:36)
[2020-03-20] MEDS: lisinopril 2.5 mg Tablet PO (10:07)
[2020-03-20] MEDS: bumetanide 1 mg Tablet 2 MG PO ×2 (10:07→18:36)
[2020-03-20] MEDS: ascorbic acid 500 mg Tablet PO (10:07)
[2020-03-20] MEDS: pantoprazole DR 40 mg Tablet PO (10:08)
[2020-03-20] MEDS: spironolactone 25 mg Tablet PO (10:08)
[2020-03-20] MEDS: potassium chloride ER 10 mEq Tablet 40 MEQ PO ×2 (10:08→18:37)
[2020-03-20] MEDS: loratadine 10 mg Tablet PO (10:08)
--- NOTE | 2020-03-20 10:43 | PC.CHAP ---
Pastoral Care Encounter/Spiritual Assessment Type of Contact [] Declined film coater visit [] Patient/Family/Request visit [] Outpatient visit [] Follow-up visit [] Physician referral [] Code/Alert [x] Routine visit [] Staff referral [] Actively dying [] Patient sleeping [] Family support [] [] Out of room [] Palliative care [] [x] Receiving care in room [] Pre-surgical visit [] Trauma [] Long length of stay [] ICU visit [] Other: Relational/Emotional Strength [x] Patient feels connected with others/family/visitors/staff [] Distress [] Loneliness/isolation [] Abandonment Spirituality of Patient [x] Person of Andra [] Attends Anglican of their Andra [x] Believes in Prayer [] Reads Bible or Protestant materials [] There are Spiritual issues to be addressed Solar Sales Specialist Interventions [x] Prayer [x] Active listening [x] Non-anxious presence [x] Spiritual/emotional support [] Crisis/trauma care [x] Spiritual counseling [] Bereavement support [] Provided bereavement packet [] Provided Bible/devotional materials [] Provided toy/stuffed animal, coloring book to patient or family member [] Provided Communion [] Anointing/[place] [] Salvation [x] Completed spiritual assessment [] Other: Impact on Illness or Injury [] Angry [] Fearful [x] Anxious [] Often cries [] Exhaustion [] Unable to work [] Unable to attend zoroastrianism [] Unable to walk/stand [] Unable to read [] Unable to drive [] Unable to eat/drink [] Unable to sleep [] Unable to be with family [] Patient intubated [] Other: Summary Infection anti bodies, feels good, doesn't know about the healing process has a good attitude, wants to go home Time spent with patient 10 mins
[2020-03-20 11:53] VITALS: BP 108/72; PULSE 82; RESP 17; TEMP 36.9; O2SAT 98
[2020-03-20 15:47] VITALS: BP 134/78; PULSE 64; RESP 22; TEMP 36.8; O2SAT 96
--- NOTE | 2020-03-20 16:14 | PM.PN ---
Subjective Subjective: Interval history: The patient says the abscess site in the left lower quadrant/groin area of his abdominal wall has been getting better daily. He says there has been less odor to the wound. He has been afebrile. Vitals/I&O/Wt Last Vital Signs Temp 98.2 F 03/20/20 15:47 Pulse 64 03/20/20 15:47 Resp 22 H 03/20/20 15:47 BP 134/78 03/20/20 15:47 Pulse Ox 96 03/20/20 15:47 03/20/20 03/20/20 03/20/20 06:59 14:59 22:59 Intake Total 290 / 1250 410 / 410 Output Total 600 / 3800 1999 Balance -310 / -2550 -1590 / -1590 Physical Exam Narrative: EXAM NARRATIVE: The abscess site actually looks very good. The surrounding skin appears healthy. The Nu gauze that is currently packed in the wound is only saturated with what appears to be serosanguineous fluid. Urinary Catheter Management^: Kuhn: Cath Placed During This Visit: yes Reason for Continuing Indwelling Catheter: Accurate Measurement of Urinary Output in Critically Ill Patients Urinary Catheter Date of Insertion: 03/17/20 Urinary Catheter Time of Insertion: 15:15 Data : 03/20/20 04:57 03/20/20 04:57 Micro: Microbiology 03/17/20 15:15 Wound Culture - Final Abdomen Proteus mirabilis Enterococcus faecalis A&P Assessment and plan (1) Subcutaneous abscess: The patient appears to have made progress. We discussed his abscess in some detail today. From a surgical perspective, I told him I could offer him a procedure to actually open up the abscess cavity a little bit more which would facilitate drainage and make packing easier, etc. I think this would make the area heal faster in the long run. Having said that, the wound currently looks pretty good, but I note that the abscess cavity was sizable in comparison to the small opening where it has drained. I do not think it would be unreasonable to have the patient go home on oral antibiotics with plans for continued packing after sensitivities have been completed. I would recommend arrangements for him to follow-up in the wound care clinic. If any further therapy was needed regarding opening the wound, they should be able to do that. Status: Acute Attestations Medical Necessity Statement*: See admitting service's notation. Coding Level of Care Code Acute Exhaust Emissions Inspector for [facility] Diagnoses Subcutaneous abscess L02.91
[2020-03-20] MEDS: fluticasone nasal spray 16gm Btl 2 SPRAY INTRANASAL (18:37)
--- NOTE | 2020-03-20 19:47 | PM.PN ---
Subjective Subjective: Interval history: He says that overall he feels like he is doing okay. No fevers or chills. No shortness of breath. Still getting quite a bit of drainage though.. Vitals/I&O/Wt Last Vital Signs Temp 98.2 F 03/20/20 15:47 Pulse 64 03/20/20 15:47 Resp 22 H 03/20/20 15:47 BP 134/78 03/20/20 15:47 Pulse Ox 96 03/20/20 15:47 03/20/20 03/20/20 03/20/20 06:59 14:59 22:59 Intake Total 290 / 1250 410 / 530 120 / 530 Output Total 600 / 3800 2000 / 3300 1300 / 3300 Balance -310 / -2550 -1590 / -2770 -1180 / -2770 Physical Exam Narrative: EXAM NARRATIVE: General: No acute distress, Alert. Morbidly obese. HEENT: PERRLA, EOMI. vision grossly normal. Throat clear. Neck: supple, no adenopathy. Heart: Regular rate and rhythm. No murmurs, rubs or gallops. Normal capillary refill. Lungs: Clear to auscultation. No wheezes, rhonchi or rales. Abdomen: Positive bowel sounds. Non-tender, non-distended. No hepatosplenomegaly. No gaurding. Packing was removed with with still significant drainage accompanying it but not as bad as yesterday but there is a little more odor noticed today than yesterday.. No significant surrounding erythema. Extremities: No clubbing, cyanosis, he has chronic 2+ edema. Negative Julissa's. Urinary Catheter Management^: Kuhn: Cath Placed During This Visit: yes Reason for Continuing Indwelling Catheter: Accurate Measurement of Urinary Output in Critically Ill Patients Urinary Catheter Date of Insertion: 03/17/20 Urinary Catheter Time of Insertion: 15:15 Data : 03/20/20 04:57 03/20/20 04:57 Micro: Microbiology 03/17/20 15:15 Wound Culture - Final Abdomen Proteus mirabilis Enterococcus faecalis A&P Assessment and plan (1) Subcutaneous abscess: -Presume this started with the excoriation under his pannus. Overall there seems to be less drainage today. However, there seems to be a little more odor noted. His CRP is improving significantly though. We will go ahead and ask Dr. French to come by and take another look to be sure he feels like he is okay for discharge tomorrow. Follow-up on final culture results tomorrow.. Status: Acute (2) Super obesity: Status: Acute (3) Congestive heart failure: Clinically stable at this time. Continue with his home medications. Status: Acute Attestations Medical Necessity Statement*: 44-year-old gentleman with a huge abscess requiring continued inpatient IV treatments. Coding Level of Care Code Acute Retail Selling Floor Leader for [facility] Diagnoses Subcutaneous abscess L02.91 Super obesity E66.9 Congestive heart failure I50.9
[2020-03-20 19:49] VITALS: BP 101/68; PULSE 88; RESP 20; TEMP 36.8; O2SAT 99
[2020-03-21] VITALS: BP 111/69; PULSE 109; RESP 26; TEMP 36.6; O2SAT 95
[2020-03-21 04:00] VITALS: BP 103/68; PULSE 95; RESP 25; TEMP 36.7; O2SAT 97
[2020-03-21] MEDS: piperacillin-tazobactam 3.375 GM in sodium chloride 0.9% (plus) 50 ML IV (05:57)
[2020-03-21] MEDS: HYDROcodone-acetaminophen 5-325 mg Tablet 1 TAB PO (05:57)
[2020-03-21 08:00] VITALS: BP 132/76; PULSE 84; RESP 24; TEMP 37; O2SAT 97
[2020-03-21 08:53] VITALS: BP 132/76; PULSE 84; RESP 24; TEMP 37; O2SAT 97
[2020-03-21] MEDS: bumetanide 1 mg Tablet 2 MG PO (09:15)
[2020-03-21] MEDS: ascorbic acid 500 mg Tablet PO (09:16)
[2020-03-21] MEDS: lisinopril 2.5 mg Tablet PO (09:16)
[2020-03-21] MEDS: clopidogrel 75 mg Tablet PO (09:16)
[2020-03-21] MEDS: ferrous sulfate EC 325 mg Tablet PO (09:16)
[2020-03-21] MEDS: loratadine 10 mg Tablet PO (09:16)
[2020-03-21] MEDS: potassium chloride ER 10 mEq Tablet 40 MEQ PO (09:16)
[2020-03-21] MEDS: metoprolol tartrate 25 mg Tablet PO (09:16)
[2020-03-21] MEDS: spironolactone 25 mg Tablet PO (09:16)
[2020-03-21] MEDS: pantoprazole DR 40 mg Tablet PO (09:16)
--- NOTE | 2020-03-21 13:06 | P.DS_ITS ---
Discharge Providers Date of Admission: 03/17/20 17:30 Date of Discharge: March 21, 2020 Attending Provider at Admission: Ilya Saxena MD Attending Provider at Discharge: Ilya Saxena MD Primary Care Provider: Ilya Saxena MD Diagnoses at Discharge Discharge Diagnosis (1) Subcutaneous abscess: Status: Acute (2) Super obesity: Status: Acute (3) Congestive heart failure: Status: Acute Reason for Visit Reason for Visit: wound Hospital Course Discharge Summary: Patient is a 44-year-old morbidly obese gentleman who came into the emergency room after developing an abscess under his pannus. It was very large and drained he thinks over half a gallon of pus and blood tinged fluid. Patient was seen by Dr. French in the emergency room and with the use of suction attempted to clean this out. He then had it packed and has had gauze over that. He has had steadily relative decrease in the amount of drainage noted. He has had no fevers or chills. His CRP was markedly elevated but is consistently came down during his hospital stay. White blood cell count is normal. He is having no pain. This time patient seems to be stable and safe to go home. Wound cultures came back positive with 2 different organisms sensitive to amoxicillin and Augmentin. Patient is being discharged on Augmentin. He received Zosyn and vancomycin while in the hospital. Physical Exam Urinary Catheter Management^: Kuhn: Cath Placed During This Visit: yes Reason for Continuing Indwelling Catheter: Accurate Measurement of Urinary Output in Critically Ill Patients Urinary Catheter Date of Insertion: 03/17/20 Urinary Catheter Time of Insertion: 15:15 Discharge Data Data Completed and Pending: Pending at discharge Category Date Time Status Blood Culture Sta t Lab 03/17/20 15:09 Results Vitals: Last Vital Signs Temp 98.6 F 03/21/20 08:53 Pulse 84 03/21/20 08:53 Resp 24 H 03/21/20 08:53 BP 132/76 03/21/20 08:53 Pulse Ox 97 03/21/20 08:53 Discharge Plan Discharge Patient Disposition: Home Condition: Stable Prescriptions: New Augmentin 875-125 mg tablet 1 tab PO BID Qty: 20 RF: 1 nystatin 100,000 unit/gram powder 1 applic TOPICAL TID Qty: 30 RF: 2 Continued fluticasone propionate [Flonase Allergy Relief] 50 mcg/actuation spray,suspension 2 spray INTRANASAL QPM RF: 0 omeprazole 20 mg capsule,delayed release(DR/EC) 20 mg PO DAILY RF: 0 albuterol sulfate 90 mcg/actuation aero powdr breath act w/sensor 1 - 2 inh INHALATION Q6H PRN (Reason: Shortness Of Breath) RF: 0 multivitamin Tablet 1 tab PO DAILY RF: 0 ascorbic acid (vitamin C) [Vitamin C] 500 mg Tablet 500 mg PO DAILY RF: 0 bumetanide 2 mg Tablet 2 mg PO BID RF: 0 Plavix 75 mg Tablet 75 mg PO DAILY RF: 0 spironolactone 25 mg Tablet 25 mg PO DAILY RF: 0 lisinopril 2.5 mg Tablet 2.5 mg PO DAILY RF: 0 loratadine 10 mg Tablet 10 mg PO DAILY RF: 0 potassium chloride 10 mEq tablet extended release 40 meq PO BID RF: 0 metoprolol tartrate 25 mg tablet 25 mg PO BID RF: 0 Discharge Orders: Discharge Order (Routine); Ordered 03/21/20 Ordered By: Ilya Saxena Referrals: Ilya Saxena MD [Primary Care Provider] - 03/24/20 2:20 pm WOUND [facility]ARE CL[facility], [Staff Physician] - 03/27/20 10:00 am (Please refer to wound care for abscess requiring packing.) Discharge Diet: Usual diet Discharge Activity: Resume usual activity Patient Instructions: Nystatin (On the skin), Amoxicillin/Clavulanate Potassium (By mouth), Acute Wound Care (GEN) Activity Restrictions/Additional Instructions: -Resume her home medications the same -Only new medication of Augmentin twice a day for 10 days and nystatin powder to apply when changing dressing -Pack your abdominal wound daily as instructed. Change the outside gauze as often as needed to keep the area dry -Follow-up with Dr. Saxena on Tuesday -Referral to wound care clinic for sometime next week -Call or return to the hospital if increasing fevers, abdominal pain, worse drainage. Discharge Date/Time: 03/21/20 11:00 Discharge Attestations Time Spent in Discharge Care*: greater than 30 min Quality Metrics Clinical Quality Measures During this hospital stay, did patient experience: None Coding Level of Care Code Acute Supervisor Pipeline Maintenance for g Fwd Diagnoses Subcutaneous abscess L02.91 Super obesity E66.9 Congestive heart failure I50.9
== END 2020-03-21 11:00 | disposition home or self-care (01) | DRG 603 ==
LOC: ER 17:44 → MEDSURG 18:06
PROVIDERS: Nurse Practitioner Family; Admitting Provider Family Medicine; PCP Family Medicine; Visit Provider Family Medicine
DX: L02.214 Cutaneous abscess of groin (principal); Z68.44 Body mass index [BMI] 60.0-69.9, adult; E66.01 Morbid (severe) obesity due to excess calories; I50.9 Heart failure, unspecified; I11.0 Hypertensive heart disease with heart failure; Z98.84 Bariatric surgery status; Z95.2 Presence of prosthetic heart valve; Z79.02 Long term (current) use of antithrombotics/antiplatelets
CPT/HCPCS: 12345; 36415; 51702; 80048; 80053; 80202; 81003; 85025; 86140; 87040; 87070; 87077; 87186; 99283; J2543; J3370; J7040; J7050

== ENCOUNTER 2020-03-27 09:18 | Outpatient (RCR) | payer BC, SELFPAY | END 2020-04-26 23:59 | disposition home or self-care (01) | LOC: WOUND 09:18 | PROVIDERS: PCP Family Medicine; Visit Provider Nurse Practitioner Family | DX: T81.89XA Other complications of procedures, not elsewhere classified, initial encounter (principal) | CPT/HCPCS: 11042; 99213; A6446; G0463 ==

== ENCOUNTER 2020-04-16 14:04 | Outpatient (CLI) | payer BC, SELFPAY | END 2020-04-16 14:05 | disposition home or self-care (01) | LOC: WOUND 14:05 | PROVIDERS: PCP Family Medicine; Visit Provider Thoracic Surgery (Cardiothoracic Vascular Surgery) | DX: E11.622 Type 2 diabetes mellitus with other skin ulcer (principal); L98.492 Non-pressure chronic ulcer of skin of other sites with fat layer exposed | CPT/HCPCS: 11042 ==

== ENCOUNTER 2020-04-23 14:28 | Outpatient (CLI) | payer BC, SELFPAY | END 2020-04-23 14:29 | disposition home or self-care (01) | LOC: WOUND 14:28 | PROVIDERS: PCP Family Medicine; Visit Provider Thoracic Surgery (Cardiothoracic Vascular Surgery) | DX: E11.622 Type 2 diabetes mellitus with other skin ulcer (principal); L98.492 Non-pressure chronic ulcer of skin of other sites with fat layer exposed | CPT/HCPCS: 11042 ==

== ENCOUNTER 2020-04-30 14:27 | Outpatient (CLI) | payer BC, SELFPAY | END 2020-04-30 14:28 | disposition home or self-care (01) | LOC: WOUND 14:27 | PROVIDERS: PCP Family Medicine; Visit Provider Thoracic Surgery (Cardiothoracic Vascular Surgery) | DX: E11.622 Type 2 diabetes mellitus with other skin ulcer (principal); L98.492 Non-pressure chronic ulcer of skin of other sites with fat layer exposed | CPT/HCPCS: 11042 ==

== ENCOUNTER 2020-05-21 13:45 | Outpatient (CLI) | payer BC, SELFPAY | END 2020-05-21 13:46 | disposition home or self-care (01) | LOC: WOUND 13:45 | PROVIDERS: PCP Family Medicine; Visit Provider Nurse Practitioner Family | DX: E11.622 Type 2 diabetes mellitus with other skin ulcer (principal); L98.492 Non-pressure chronic ulcer of skin of other sites with fat layer exposed | CPT/HCPCS: 11042 ==

== ENCOUNTER 2020-05-28 14:43 | Outpatient (CLI) | payer BC, SELFPAY | END 2020-05-28 14:44 | disposition home or self-care (01) | LOC: WOUND 14:43 | PROVIDERS: PCP Family Medicine; Visit Provider Thoracic Surgery (Cardiothoracic Vascular Surgery) | DX: E11.622 Type 2 diabetes mellitus with other skin ulcer (principal); L98.492 Non-pressure chronic ulcer of skin of other sites with fat layer exposed | CPT/HCPCS: 11042 ==

== ENCOUNTER 2020-06-11 13:57 | Outpatient (CLI) | payer BC, SELFPAY | END 2020-06-11 13:58 | disposition home or self-care (01) | LOC: WOUND 13:58 | PROVIDERS: PCP Family Medicine; Visit Provider Thoracic Surgery (Cardiothoracic Vascular Surgery) | DX: E11.622 Type 2 diabetes mellitus with other skin ulcer (principal); L98.492 Non-pressure chronic ulcer of skin of other sites with fat layer exposed | CPT/HCPCS: 11042 ==

== ENCOUNTER 2020-06-25 10:34 | Outpatient (CLI) | payer BC, SELFPAY | END 2020-06-25 10:35 | disposition home or self-care (01) | LOC: WOUND 10:34 | PROVIDERS: PCP Family Medicine; Visit Provider Nurse Practitioner Family | DX: Z09 Encounter for follow-up examination after completed treatment for conditions other than malignant neoplasm (principal) | CPT/HCPCS: 99212 ==

== ENCOUNTER → 2023-01-13 09:19 | Outpatient (BNVA) | payer SELFPAY | PROVIDERS: PCP Family Medicine; Visit Provider Family Medicine | DX: I10 Essential (primary) hypertension (principal); D50.9 Iron deficiency anemia, unspecified; E66.01 Morbid (severe) obesity due to excess calories; Z68.44 Body mass index [BMI] 60.0-69.9, adult | CPT/HCPCS: 80053; 82306; 82607; 83880; 84443; 85025 ==

== ENCOUNTER → 2023-01-14 08:36 | Outpatient (BNVA) | payer SELFPAY | PROVIDERS: PCP Family Medicine; Visit Provider Family Medicine | DX: I10 Essential (primary) hypertension (principal); E11.9 Type 2 diabetes mellitus without complications; D50.9 Iron deficiency anemia, unspecified | CPT/HCPCS: 80053; 82306; 82607; 83880; 84443; 85025 ==

== ENCOUNTER 2023-01-16 20:05 | Emergency (ER) | payer SELFPAY ==
[2023-01-16 20:06] VITALS: BP 104/72; PULSE 108; RESP 26; O2SAT 100; BMI 37.5
--- NOTE | 2023-01-16 20:10 | ECG_ITS ---
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 Measurements Intervals [place] Rate: 109 P: 0 [place]: 0 QRS: -56 QRSD: 122 T: -7 QT: 307 QTc: 414 Interpretive Statements ATRIAL FLUTTER WITH RAPID VENTRICULAR RESPONSE WITH ABERRANT CONDUCTION OR VENTRICULAR PREMATURE COMPLEXES LEFT AXIS DEVIATION [QRS AXIS < -30] ANTEROSEPTAL MYOCARDIAL INFARCTION , PROBABLY OLD [40+ ms Q WAVE IN V1-V4] Compared to ECG 01/04/2020 00:38:13 Left-axis deviation now present Sinus tachycardia no longer present Indeterminate axis no longer present Myocardial infarct finding still present Electronically Signed On 01-17-2023 21:14:33 CDT by Chely Lizama M.D. [email or web address].[email or web address]/store/NU/[id number] f
--- NOTE | 2023-01-16 20:10 | XRR_ITS ---
PROCEDURE INFORMATION: Exam: XR Chest Exam date and time: 01/16/2023 8:37 PM Age: 47 years old Clinical indication: Pain; Chest pressure; Additional info: Cp TECHNIQUE: Imaging protocol: Radiologic exam of the chest. Views: 1 view. COMPARISON: CR XR chest 1V portable [id number] 01/03/2020 4:12 PM FINDINGS: Lungs: Unremarkable. No consolidation. Pleural spaces: Unremarkable. No pleural effusion. No pneumothorax. Heart/Mediastinum: Cardiomegaly. TAVR. Bones/joints: Unremarkable. XR/XR chest 1V portable [id number] IMPRESSION: 1. Negative for infiltrate. 2. Cardiomegaly. 3. TAVR.
[2023-01-16 20:18] VITALS: PULSE 129; RESP 20; O2SAT 99
--- NOTE | 2023-01-16 20:41 | ED_ITS ---
HPI - Arrhythmia/Palpitations General: Chief Complaint: Arrhythmia/Palpitations Stated Complaint: A FIB WITH RVR Time Seen by Provider: 01/16/23 20:07 Source: patient Mode of arrival: ambulatory Limitations: no limitations History of Present Illness: 47-year-old male states he has a history of A-fib he is scheduled on to have a cardioversion with his administrative office clerk in [place] he states that today his heart has been racing with EMS he was tachycardic states that he vagal his heart rate improved after IV. He states he is feeling his heart race throughout the day denies any severe pain denies any shortness of breath. Associated symptoms: Deny nausea or vomiting Review of Systems Const: Denies: fever(s), chills, body aches or change in appetite Eyes: Denies: blurry vision or eye discomfort ENMT: Denies: throat pain or dental pain Card: Reports: palpitations; Denies: chest pain Resp: Denies: dyspnea GI: Denies: abdominal pain, nausea, vomiting or diarrhea Musc: Denies: neck pain or back pain Skin/Breast: Denies: rash Neuro: Denies: headache(s) PFSH ED PFSH: Medical History Atrial fibrillation Congestive heart failure HTN (hypertension) Super obesity SVT (supraventricular tachycardia) Surgical History LAP-BAND surgery status S/P TAVR (transcatheter aortic valve replacement) Family History Mother Arrhythmia Social History Smoking and tobacco status: never smoked Alcohol intake: current Alcohol intake frequency: holidays/special occasions only Substance/Drug Use: never Household members: spouse Current occupational status: employed 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 Physical Exam Const: COMMON NORMALS: patient oriented x3 HENMT: COMMON NORMALS: normocephalic and atraumatic HEAD & SCALP: normocephalic and atraumatic Neck/C-Spine: COMMON NORMALS: full ROM and supple Chest: COMMONS NORMALS: normal inspection of the chest and normal palpation of entire chest wall Resp: COMMON NORMALS: normal respiratory effort, No retractions, No use of accessory muscles and clear to auscultation bilaterally AUSCULTATION: clear to auscultation bilaterally Cardio: COMMON NORMALS: No murmurs present (Cardio) RATE: tachycardic RHYTHM: abnormal rhythm irregularly irregular GI: COMMON NORMALS: Normal to inspection, nondistended, normoactive bowel sounds present, Soft to palpation, non-tender and no masses PALPATION: Yes Soft to palpation Extremity: COMMON NORMALS: normal to inspection and full ROM Neuro: COMMON NORMALS: patient oriented x3, moves all extremities and no focal motor deficits Psych: COMMON NORMALS: mental status grossly normal, Normal thought process present and cooperative THOUGHT PROCESS: Normal thought process present Skin: COMMON NORMALS: no rashes or lesions noted and no wounds GENERAL SKIN EXAM: no rashes or lesions noted Course Vital Signs: Vital signs: Vital Signs Pulse Rate 87 01/16/23 21:43 Respiratory Rate 21 H 01/16/23 21:43 Blood Pressure 125/87 01/16/23 21:43 Pulse Oximetry 100 01/16/23 21:43 Oxygen Delivery Me thod Room Air 01/16/23 21:43 MDM - Arrhythmia/Palpitations Medical Decision Making Patient presents here with A-fib his heart rate here is improved he has appoint with his administrative office clerk in [place] on for cardioversion he is stable here he is to follow-up as scheduled return if worsening Medical Records I reviewed the patient's medical records. Lab Data I reviewed the patient's lab results. 01/16/23 20:40 01/16/23 20:40 Radiology Impressions Chest X-Ray 01/16/23 20:10 IMPRESSION: 1. Negative for infiltrate. 2. Cardiomegaly. 3. TAVR. Laboratory Results WBC 8.2 10^3/uL (4.0-10.0) 01/16/23 20:40 RBC 4.89 10^6/uL (4.1-5.3) 01/16/23 20:40 Hgb 14.3 g/dL (11.7-16.6) 01/16/23 20:40 Hct 43.9 % (42.0-52.0) 01/16/23 20:40 MCV 89.8 fl (80-94) 01/16/23 20:40 MCH 29.2 pg (28.0-34.0) 01/16/23 20:40 MCHC 32.6 g/dL (30.0-36.0) 01/16/23 20:40 RDW 14.5 % (12.1-15.1) 01/16/23 20:40 Plt Count 196 10^3/cmm (130-400) 01/16/23 20:40 MPV 10.4 fL (7.4-10.4) 01/16/23 20:40 Neut % (Auto) 76.4 % 01/16/23 20:40 Lymph % (Auto) 12.6 % 01/16/23 20:40 [place] % (Auto) 7.3 % 01/16/23 20:40 Eos % (Auto) 2.9 % 01/16/23 20:40 Baso % (Auto) 0.4 % 01/16/23 20:40 Neut # (Auto) 6.26 10^3/uL (1.8-7.7) 01/16/23 20:40 Lymph # (Auto) 1.0 10^3/uL (0.8-4.8) 01/16/23 20:40 [place] # (Auto) 0.6 10^3/uL (0.2-0.9) 01/16/23 20:40 Eos # (Auto) 0.2 10^3/uL (0.0-0.8) 01/16/23 20:40 Baso # (Auto) 0.0 10^3/uL (0.0-0.1) 01/16/23 20:40 Nucleated RBC % (auto) 0 % 01/16/23 20:40 Nucleated RBCs # 0.0 /100WBC 01/16/23 20:40 Sodium 136 mmol/L (136-145) 01/16/23 20:40 Potassium 4.1 mmol/L (3.5-5.1) 01/16/23 20:40 Chloride 102 mmol/L (98-107) 01/16/23 20:40 Carbon Dioxide 20 mmol/L (22-29) L 01/16/23 20:40 Anion Gap 18.1 (5-19) 01/16/23 20:40 BUN 20 mg/dL (6-20) 01/16/23 20:40 Creatinine 0.9 mg/dL (0.7-1.2) 01/16/23 20:40 GFR Calculation 89.7 mL/min (90-130) L 01/16/23 20:40 Glucose 102 mg/dL (65-115) 01/16/23 20:40 Calculated Osmolality 285 mOsm/kg (285-295) 01/16/23 20:40 Calcium 8.8 mg/dL (8.5-10.5) 01/16/23 20:40 Total Bilirubin 0.5 mg/dL (0.15-1.2) 01/16/23 20:40 AST 46 U/L (0-40) H 01/16/23 20:40 ALT 25 U/L (0-41) 01/16/23 20:40 Alkaline Phosphatase 70 U/L (40-130) 01/16/23 20:40 Troponin T Baseline 15 ng/L (0-15) 01/16/23 20:40 Total Protein 6.1 g/dL (6.6-8.7) L 01/16/23 20:40 Albumin 3.7 g/dL (3.5-5.2) 01/16/23 20:40 Globulin 2.4 g/dL (1.3-4.6) 01/16/23 20:40 EKG Data EKG 1: I personally reviewed and interpreted this EKG as follows: EKG interpretation date: 01/16/23 EKG interpretation time: 20:12 Interpretation: atrial flutter [address] or t wave abnormalities qrs 122 qtc 371 Other EKG comments: Chest X-Ray 01/16/23 20:10 IMPRESSION: 1. Negative for infiltrate. 2. Cardiomegaly. 3. TAVR. Discharge Plan Discharge Patient Disposition: Home Clinical Impression: Atrial fibrillation Condition: Stable Prescriptions: No Action omeprazole 20 mg capsule,delayed release(DR/EC) 20 mg PO DAILY albuterol sulfate 90 mcg/actuation aero powdr breath act w/sensor 1 - 2 inh INHALATION Q6H PRN (Reason: Shortness Of Breath) Eliquis 5 mg tablet See Rx Instructions .ROUTE .COMPLEX Qty: 180 3RF Dose Instruction: TAKE 1 TABLET BY MOUTH TWO TIMES DAILY Rx Instructions: TAKE 1 TABLET BY MOUTH TWO TIMES DAILY spironolactone 25 mg tablet 25 mg PO DAILY metoprolol succinate 100 mg tablet extended release 24 hr 100 mg PO DAILY ascorbic acid (vitamin C) [Vitamin C] 500 mg Tablet 500 mg PO DAILY lisinopril 2.5 mg Tablet 2.5 mg PO DAILY loratadine 10 mg Tablet 10 mg PO DAILY nystatin 100,000 unit/gram powder 1 applic TOPICAL TID Qty: 30 2RF Discharge Orders: Discharge ED (Routine); Ordered 01/16/23 Ordered By: Sandy Solomon Referrals: Ilya Saxena MD [Primary Care Provider] - Discharge Diet: Advance as tolerated Discharge Activity: Resume usual activity Patient Instructions: A-fib (Atrial Fibrillation) (ED) Coding Level of Care Code ED Sorter Upholstery Parts for Roopa Hernandez
[2023-01-16 20:55] LABS: Basophils % 0.4 %; Eosinophils # 0.2 10^3/uL (0.0-0.8); Eosinophils % 2.9 %; Hematocrit 43.9 % (42.0-52.0); Hemoglobin 14.3 g/dL (11.7-16.6); Lymphocytes % 12.6 %; Mean Corpuscular HGB Conc 32.6 g/dL (30.0-36.0); Mean Corpuscular Hemoglobin 29.2 pg (28.0-34.0); Mean Corpuscular Volume 89.8 fl (80-94); Mean Platelet Volume 10.4 fL (7.4-10.4); Monocytes # 0.6 10^3/uL (0.2-0.9); Monocytes % 7.3 %; Neutrophils # 6.26 10^3/uL (1.8-7.7); Neutrophils % 76.4 %; Nucleated Red Blood Cells % 0 %; Platelet Count 196 10^3/cmm (130-400); Red Blood Count 4.89 10^6/uL (4.1-5.3); Red Cell Distribution Width 14.5 % (12.1-15.1); White Blood Count 8.2 10^3/uL (4.0-10.0)
[2023-01-16] MEDS: sodium chloride 0.9% 1,000 ML 999 ML IV (20:56)
[2023-01-16 21:08] LABS: Alanine Aminotransferase 25 U/L (0-41); Albumin Level 3.7 g/dL (3.5-5.2); Alkaline Phosphatase 70 U/L (40-130); Blood Urea Nitrogen 20 mg/dL (6-20); Calcium 8.8 mg/dL (8.5-10.5); Carbon Dioxide 20 mmol/L (22-29); Chloride 102 mmol/L (98-107); Globulin 2.4 g/dL (1.3-4.6); Glomerular Filtration Rate 89.7 mL/min (90-130); Glucose 102 mg/dL (65-115); Osmolality Calculated 285 mOsm/kg (285-295); Sodium 136 mmol/L (136-145); Total Bilirubin 0.5 mg/dL (0.15-1.2); Total Protein 6.1 g/dL (6.6-8.7)
[2023-01-16 21:15] LABS: Troponin(5th) Baseline 15 ng/L (0-15)
[2023-01-16 21:17] LABS: Anion Gap 18.1 (5-19); Potassium 4.1 mmol/L (3.5-5.1)
[2023-01-16 21:18] LABS: Aspartate Amino Transferase 46 U/L (0-40)
[2023-01-16] MEDS: dilTIAZem 5 mg/mL SDV 5 mL 10 MG IVP (21:38)
[2023-01-16 21:43] VITALS: BP 125/87; PULSE 87; RESP 21; O2SAT 100
--- NOTE | 2023-01-16 22:10 | ECG_ITS ---
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 Measurements Intervals [place] Rate: 75 P: 76 NM: 170 QRS: 71 QRSD: 106 T: 60 QT: 364 QTc: 408 Interpretive Statements SINUS RHYTHM Compared to ECG 01/04/2020 00:38:13 Sinus tachycardia no longer present Ventricular premature complex(es) no longer present Indeterminate axis no longer present Myocardial infarct finding no longer present Electronically Signed On 01-17-2023 21:34:32 CDT by Chely Lizama M.D. [email or web address].[email or web address]store/OM/[id number]
[2023-01-16 22:32] VITALS: BP 119/82; PULSE 85; RESP 18; O2SAT 99
== END 2023-01-16 22:26 | disposition home or self-care (01) ==
PROVIDERS: Emergency Provider Emergency Medicine; PCP Family Medicine
DX: I48.91 Unspecified atrial fibrillation (principal); Z79.01 Long term (current) use of anticoagulants; I11.0 Hypertensive heart disease with heart failure; I50.9 Heart failure, unspecified
CPT/HCPCS: 71045; 80053; 84484; 85025; 93005; 96361; 96374; 99285; J3490; J7030

== ENCOUNTER 2023-01-27 16:49 | Observation (INO) | payer OTHER, SELFPAY ==
[2023-01-27] VITALS (21 sets, daily range): BP systolic 100–123; BP diastolic 64–86; PULSE 53–81; RESP 12–28; TEMP 36.6–36.8; O2SAT 96–100; BMI 37.5
--- NOTE | 2023-01-27 16:57 | ECG_ITS ---
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 Measurements Intervals [place] Rate: 75 P: 0 [place]: 0 QRS: 12 QRSD: 120 T: 0 QT: 395 QTc: 441 Interpretive Statements ATRIAL FIBRILLATION INDETERMINATE AXIS MODERATE INTRAVENTRICULAR CONDUCTION DELAY [110+ ms QRS DURATION] MINIMAL ST DEPRESSION [0.025+ mV ST DEPRESSION] Compared to ECG 01/16/2023 20:51:56 Indeterminate axis now present Intraventricular conduction delay now present ST (T wave) deviation now present Sinus rhythm no longer present Electronically Signed On 01-27-2023 22:06:54 CDT by Yovanny Toth M.D. [email or web address]/store/[id number] f
--- NOTE | 2023-01-27 17:00 | XRR_ITS ---
PROCEDURE INFORMATION: Exam: XR Chest Exam date and time: 01/27/2023 5:09 PM Age: 47 years old Clinical indication: Cough; Additional info: Dyspnea/cough TECHNIQUE: Imaging protocol: Radiologic exam of the chest. Views: 1 view. COMPARISON: CR (CHEST, ) 01/16/2023 8:37 PM FINDINGS: Lungs: Unremarkable. No consolidation. Pleural spaces: Unremarkable. No pleural effusion. No pneumothorax. Heart/Mediastinum: Stable cardiomegaly. Aortic valve prosthesis is again noted. Bones/joints: Unremarkable. XR/XR chest 1V portable [id number] IMPRESSION: No acute findings.
--- NOTE | 2023-01-27 17:02 | W.ED.ARRPALP ---
HPI - Arrhythmia/Palpitations General: Chief Complaint: Arrhythmia/Palpitations Stated Complaint: tachy Time Seen by Provider: 01/27/23 16:53 Source: patient Mode of arrival: ambulatory History of Present Illness: 47-year-old male with a history of atrial fibrillation presented to the emergency room via EMS. Patient was found by EMS to be in SVT they attempted vagal maneuvers he had a rate in the 240s systolic pressure reportedly decreased into the 80s at which time they did a synchronized cardioversion. They have not been able to secure IV access the patient was not sedated. Patient was cardioverted at 48 J successfully is not a 38-year-old. He has known A-fib in the past he is on apixaban he is on metoprolol for rate control. He has some chest discomfort that was ongoing while he was in the rapid rate but is improved now. He is mildly hypertensive with blood pressure 101/64. On arrival here patient is extremely diaphoretic. Patient was in the emergency room 1 week ago with SVT treated with adenosine. History of bicuspid aortic valve with TAVR replacement complaint: rapid heart beat, heart racing and palpitations Duration: now resolved Context: occurred during rest Arrhythmia history: atrial fibrillation Associated symptoms: Reports nausea, pre-syncope, sense of impending doom and short of breath; Deny anxiety, cough, diaphoresis, muscle cramps, paresthesias, syncope or vomiting Review of Systems Const: Denies: fever(s), chills, fatigue, malaise or diaphoresis ENMT: Denies: throat pain, ear or mastoid pain, nasal discharge or nasal congestion Card: Reports: chest pain, palpitations, irregular heart rhythm, edema and pre-syncope; Denies: syncope Resp: Denies: dyspnea, productive cough or non-productive cough GI: Reports: nausea; Denies: abdominal pain or vomiting : Denies: flank pain, dysuria, urinary frequency or urinary urgency Musc: Denies: muscle cramps Skin/Breast: Denies: rash or pruritus Psych: Denies: anxiety PFSH ED PFSH: Medical History Atrial fibrillation Congestive heart failure HTN (hypertension) Iron deficiency anemia Morbid obesity with BMI of 60.0-69.9, adult Pickwickian syndrome Subcutaneous abscess Super obesity SVT (supraventricular tachycardia) Surgical History LAP-BAND surgery status S/P TAVR (transcatheter aortic valve replacement) Family History Mother Arrhythmia Social History Smoking and tobacco status: never smoked Alcohol intake: current Alcohol intake frequency: holidays/special occasions only Substance/Drug Use: never Household members: spouse Current occupational status: employed 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 Physical Exam Const: GENERAL APPEARANCE: cooperative and comfortable ORIENTATION/CONSCIOUSNESS: Yes awake, Yes oriented to person, Yes oriented to place and Yes oriented to time HENMT: COMMON NORMALS: normocephalic, atraumatic and hearing grossly normal bilaterally HEAD & SCALP: normocephalic and atraumatic Resp: COMMON NORMALS: normal respiratory effort, No retractions, No use of accessory muscles and clear to auscultation bilaterally AUSCULTATION: clear to auscultation bilaterally Cardio: COMMON NORMALS: regular rate, regular rhythm and No murmurs present (Cardio) RATE: regular rate RHYTHM: regular rhythm GI: COMMON NORMALS: Soft to palpation and No hepatosplenomegaly present AUSCULTATION: Yes normoactive bowel sounds PALPATION: Yes Soft to palpation, No Tenderness to palpation present (GI), No Guarding due to palpation present (GI) and Yes No hepatosplenomegaly present Extremity: COMMON NORMALS: normal to inspection, capillary refill normal, no clubbing, cyanosis or edema, no calf tenderness and no pedal edema Neuro: SENSORIUM/ORIENTATION: Yes oriented to person, Yes oriented to place and Yes oriented to time Skin: COMMON NORMALS: no rashes or lesions noted GENERAL SKIN EXAM: no rashes or lesions noted Course Vital Signs: Vital signs: Vital Signs Temperature 97.5 F L 01/29/23 15:50 Pulse Rate 72 01/29/23 15:50 Respiratory Rate 16 01/29/23 15:50 Blood Pressure 124/94 01/29/23 15:50 Pulse Oximetry 96 01/29/23 15:50 Oxygen Delivery Me thod Room Air 01/29/23 12:22 MDM - Arrhythmia/Palpitations Medical Decision Making Patient remained stable in the emergency room. Will admit for observation after synchronized cardioversion. He is scheduled to have a elective cardioversion tomorrow at [facility]. He remains in A-fib at this time. Lab Data 01/29/23 04:25 01/29/23 04:32 Radiology Impressions Chest X-Ray 01/27/23 17:00 IMPRESSION: No acute findings. Laboratory Results WBC 6.0 10^3/uL (4.0-10.0) 01/28/23 03:36 RBC 4.45 10^6/uL (4.1-5.3) 01/28/23 03:36 Hgb 12.9 g/dL (11.7-16.6) 01/28/23 03:36 Hct 39.7 % (42.0-52.0) L 01/28/23 03:36 MCV 89.2 fl (80-94) 01/28/23 03:36 MCH 29.0 pg (28.0-34.0) 01/28/23 03:36 MCHC 32.5 g/dL (30.0-36.0) 01/28/23 03:36 RDW 14.6 % (12.1-15.1) 01/28/23 03:36 Plt Count 171 10^3/cmm (130-400) 01/28/23 03:36 MPV 11.3 fL (7.4-10.4) H 01/28/23 03:36 Neut % (Auto) 70.3 % 01/28/23 03:36 Lymph % (Auto) 18.9 % 01/28/23 03:36 [place] % (Auto) 7.1 % 01/28/23 03:36 Eos % (Auto) 3.0 % 01/28/23 03:36 Baso % (Auto) 0.5 % 01/28/23 03:36 Neut # (Auto) 4.24 10^3/uL (1.8-7.7) 01/28/23 03:36 Lymph # (Auto) 1.1 10^3/uL (0.8-4.8) 01/28/23 03:36 [place] # (Auto) 0.4 10^3/uL (0.2-0.9) 01/28/23 03:36 Eos # (Auto) 0.2 10^3/uL (0.0-0.8) 01/28/23 03:36 Baso # (Auto) 0.0 10^3/uL (0.0-0.1) 01/28/23 03:36 Nucleated RBC % (auto) 0 % 01/28/23 03:36 Nucleated RBCs # 0.0 /100WBC 01/28/23 03:36 Sodium 141 mmol/L (136-145) 01/27/23 17:01 Potassium 3.7 mmol/L (3.5-5.1) 01/27/23 17:01 Chloride 103 mmol/L (98-107) 01/27/23 17:01 Carbon Dioxide 22 mmol/L (22-29) 01/27/23 17:01 Anion Gap 19.7 (5-19) H 01/27/23 17:01 BUN 14 mg/dL (6-20) 01/27/23 17:01 Creatinine 1.0 mg/dL (0.7-1.2) 01/27/23 17:01 GFR Calculation 79.4 mL/min (90-130) L 01/27/23 17:01 Glucose 202 mg/dL (65-115) H 01/27/23 17:01 Calculated Osmolality 298 mOsm/kg (285-295) H 01/27/23 17:01 Calcium 8.8 mg/dL (8.5-10.5) 01/27/23 17:01 Magnesium 2.0 mg/dL (1.7-2.3) 01/28/23 03:36 Total Bilirubin 0.7 mg/dL (0.15-1.2) 01/27/23 17:01 AST 58 U/L (0-40) H 01/27/23 17:01 ALT 36 U/L (0-41) 01/27/23 17:01 Alkaline Phosphatase 109 U/L (40-130) 01/27/23 17:01 Troponin T Baseline 20 ng/L (0-15) H 01/27/23 17:01 Troponin T 120 Minute 28.97 ng/L (0-15) H 01/27/23 19:20 Delta Troponin T 8.97 ABS# (0-10) 01/27/23 19:20 Troponin T Hi Sens 6Hr 24.15 ng/L (0-15) H 01/27/23 22:49 Troponin T Hi Sens 6Hr Delta 4.15 ng/L (0-12) 01/27/23 22:49 Total Protein 6.4 g/dL (6.6-8.7) L 01/27/23 17:01 Albumin 3.9 g/dL (3.5-5.2) 01/27/23 17:01 Globulin 2.5 g/dL (1.3-4.6) 01/27/23 17:01 TSH 3.31 uIU/mL (0.27-4.20) 01/28/23 03:36 Discharge Plan Discharge Patient Disposition: Admitted As Inpatient Admit Provider: Santy Leone Clinical Impression: SVT (supraventricular tachycardia), Atrial fibrillation, Status post transcatheter aortic valve replacement (TAVR) using bioprosthesis, Non-ischemic cardiomyopathy, HTN (hypertension) Condition: Stable Discharge Diet: Cardiac Coding Level of Care Code ED Candy Wrapping Machine Operator for Roopa Hernandez
[2023-01-27 17:07] LABS: Basophils % 0.4 %; Eosinophils # 0.1 10^3/uL (0.0-0.8); Eosinophils % 1.4 %; Hematocrit 43.3 % (42.0-52.0); Hemoglobin 14.8 g/dL (11.7-16.6); Lymphocytes % 12.4 %; Mean Corpuscular HGB Conc 34.2 g/dL (30.0-36.0); Mean Corpuscular Hemoglobin 30.3 pg (28.0-34.0); Mean Corpuscular Volume 88.5 fl (80-94); Mean Platelet Volume 10.6 fL (7.4-10.4); Monocytes # 0.3 10^3/uL (0.2-0.9); Monocytes % 3.9 %; Neutrophils # 6.22 10^3/uL (1.8-7.7); Neutrophils % 81.5 %; Nucleated Red Blood Cells % 0 %; Platelet Count 207 10^3/cmm (130-400); Red Blood Count 4.89 10^6/uL (4.1-5.3); Red Cell Distribution Width 14.6 % (12.1-15.1); White Blood Count 7.6 10^3/uL (4.0-10.0)
[2023-01-27 17:39] LABS: Troponin(5th) Baseline 20 ng/L (0-15)
[2023-01-27 17:41] LABS: Alanine Aminotransferase 36 U/L (0-41); Albumin Level 3.9 g/dL (3.5-5.2); Alkaline Phosphatase 109 U/L (40-130); Anion Gap 19.7 (5-19); Aspartate Amino Transferase 58 U/L (0-40); Blood Urea Nitrogen 14 mg/dL (6-20); Calcium 8.8 mg/dL (8.5-10.5); Carbon Dioxide 22 mmol/L (22-29); Chloride 103 mmol/L (98-107); Globulin 2.5 g/dL (1.3-4.6); Glomerular Filtration Rate 79.4 mL/min (90-130); Glucose 202 mg/dL (65-115); Osmolality Calculated 298 mOsm/kg (285-295); Potassium 3.7 mmol/L (3.5-5.1); Sodium 141 mmol/L (136-145); Total Bilirubin 0.7 mg/dL (0.15-1.2); Total Protein 6.4 g/dL (6.6-8.7)
--- NOTE | 2023-01-27 18:47 | P.HP_ITS ---
Providers/Chief Complaint Admitting Physician: Santy Leone MD Primary Care Provider: Ilya Saxena MD Chief Complaint: tachy History of Present Illness Damian Quesada is a 47 year old male bicuspid aortic valve status post TAVR, paroxysmal atrial fibrillation, and hypertension who presents to the emergency department with tachycardia. Patient was reportedly found to be in SVT by EMS. They reportedly attempted vagal remover's which were not successful. His heart rate was reportedly around 240s. He was reportedly hypotensive at that time. Synchronized cardioversion using 50 J was reportedly performed. There is no IV access so the patient was not sedated. Patient has a history of atrial fibrillation. He reports he was diagnosed in May 2020 about 6 months or so after his TAVR procedure. He underwent cardioversion around that time. States that he has done well since that time until about a month ago. He started getting recurrent palpitations. He states that he did start taking some old amiodarone he had around the house in the past month but that also did not improve symptoms. Exertion worsens symptoms. Rest improves symptoms. Denies other alleviating or aggravating factors. He is on apixaban. He endorses compliance and denies missing any doses. Of note, patient was scheduled for cardioversion tomorrow with [facility] with Dr. Ar Duran (office phone [phone]). Patient request that we contact his general studies program chair tomorrow morning. Patient is currently in atrial fibrillation with heart rate in the 50s to 60s. He denies any chest pain, nausea or emesis. Reports a little bit of shortness of breath but otherwise denies any current symptoms. Review of Systems Narrative: A complete review of systems was obtained and is negative except as stated in HPI Medications/Allergies Home Medications Medication Instructions Recorded Confirmed Last Taken Type ascorbic acid (vitamin C) 500 mg 500 mg PO DAILY 08/14/19 01/13/23 03/17/20 History tablet (Vitamin C) albuterol sulfate 90 mcg/actuation 1 - 2 inh inhalation Q6H PRN 09/18/19 01/13/23 Unknown History breath activated powder Shortness Of Breath inhaler,sensor omeprazole 20 mg capsule,delayed 20 mg PO DAILY 09/18/19 01/13/23 03/17/20 History release lisinopril 2.5 mg tablet 2.5 mg PO DAILY 03/17/20 01/13/23 03/17/20 History loratadine 10 mg tablet 10 mg PO DAILY 03/17/20 01/13/23 03/17/20 History nystatin 100,000 unit/gram topical 1 applic topical TID #30 grams 03/21/20 01/13/23 Unknown Rx powder apixaban 5 mg tablet (Eliquis) See Rx Instructions .Route 12/10/22 01/13/23 Unknown Rx .COMPLEX #180 tabs metoprolol succinate 100 mg 100 mg PO DAILY 01/13/23 01/13/23 Unknown History tablet,extended release 24 hr spironolactone 25 mg tablet 25 mg PO DAILY 01/13/23 01/13/23 Unknown History Allergies Allergy/AdvReac Type Severity Reaction Status Date / Time No Known Allergies Allergy Verified 01/27/23 17:01 PFSH Acute PFSH: Medical History (Updated 01/27/23 @ 23:25 by Abisai Alicea MD) Atrial fibrillation Congestive heart failure HTN (hypertension) Iron deficiency anemia Morbid obesity with BMI of 60.0-69.9, adult Pickwickian syndrome Subcutaneous abscess Super obesity SVT (supraventricular tachycardia) Surgical History LAP-BAND surgery status S/P TAVR (transcatheter aortic valve replacement) Family History Mother Arrhythmia Social History Smoking and tobacco status: never smoked Alcohol intake: current Alcohol intake frequency: holidays/special occasions only Substance/Drug Use: never Household members: spouse Current occupational status: employed 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 Head: Normocephalic. Atraumatic. EOM intact. Neck: No JVD. Cardiovascular: Bradycardic. No gallops. No murmurs. Trace peripheral edema. Lungs: Clear to auscultation, no use of accessory muscles, no crackles or wheezes. Skin: No jaundice. No rashes. Abdomen: Normal bowel sounds, abdomen soft and nontender. Extremities: No cyanosis or clubbing. Musculoskeletal: No swollen or erythematous joints. Neurological: Moves all 4 extremities. No myoclonus. Data 01/27/23 17:01 01/27/23 17:01 A&P Assessment and plan (1) Atrial fibrillation: Patient currently in atrial fibrillation Continue metoprolol for rate control Continue apixaban for anticoagulation Anticipate cardiology consultation Patient requested general studies program chair, Dr Kuldip Duran at [facility] be contacted in AM as he was scheduled for cardioversion at 0730 Telemetry monitoring (2) HTN (hypertension): Continue lisinopril Continue Aldactone Continue metoprolol (3) SVT (supraventricular tachycardia): Status post cardioversion by EMS Continue beta-shilo Plan DVT prophylaxis: Apixaban CODE STATUS: Full code Attestations Medical Necessity Statement*: Patient presents with symptomatic SVT requiring cardioversion with complex cardiac history including history of TAVR with expected hospitalization not to cross 2 midnight nights. Coding Level of Care Code Acute Code for [facility] Fwd Diagnoses Atrial fibrillation I48.91 HTN (hypertension) I10 SVT (supraventricular tachycardia) I47.1
--- NOTE | 2023-01-27 19:00 | ECG_ITS ---
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 Measurements Intervals [place] Rate: 139 P: 0 MD: 0 QRS: 70 QRSD: 91 T: -7 QT: 292 QTc: 444 Interpretive Statements ATRIAL FIBRILLATION WITH RAPID VENTRICULAR RESPONSE NONSPECIFIC ST & T-WAVE ABNORMALITY Compared to ECG 01/27/2023 16:57:51 T-wave abnormality now present Indeterminate axis no longer present Intraventricular conduction delay no longer present ST (T wave) deviation no longer present Electronically Signed On 01-27-2023 22:09:00 CDT by Yovanny Toth M.D. [id number]
[2023-01-27 20:02] LABS: Troponin 5 2HR 28.97 ng/L (0-15)
[2023-01-27 20:03] LABS: Troponin 5 2HR Delta 8.97 ABS# (0-10)
--- NOTE | 2023-01-27 23:00 | ECG_ITS ---
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 Measurements Intervals [place] Rate: 52 P: 0 FL: 0 QRS: -16 QRSD: 120 T: -40 QT: 435 QTc: 405 Interpretive Statements ATRIAL FIBRILLATION WITH SLOW VENTRICULAR RESPONSE WITH ABERRANT CONDUCTION OR VENTRICULAR PREMATURE COMPLEXES POSSIBLE ANTERIOR MYOCARDIAL INFARCTION , PROBABLY OLD [30 ms Q WAVE IN V3/V4, OR R < 0.2 mV IN V4] ABNORMAL RHYTHM ECG Compared to ECG 01/27/2023 16:58:25 Ventricular premature complex(es) now present Aberrant conduction of supraventricular beat(s) now present Myocardial infarct finding now present T-wave abnormality no longer present Electronically Signed On 01-28-2023 13:41:35 CDT by Chely Lizama M.D. [id number]
[2023-01-27 23:44] LABS: Troponin 5 6HR 24.15 ng/L (0-15); Troponin 5 6HR Delta 4.15 ng/L (0-12)
[2023-01-28] VITALS (155 sets, daily range): BP systolic 109–145; BP diastolic 59–110; PULSE 56–134; RESP 6–33; O2SAT 82–100
[2023-01-28] MEDS: apixaban 5 mg Tablet PO ×3 (01:46→20:34)
[2023-01-28] MEDS: loratadine 10 mg Tablet PO ×2 (02:03→20:34)
--- NOTE | 2023-01-28 02:38 | PC.NURSE ---
Patient unable to void. Bladder scan volume [address] Alicea.
[2023-01-28 04:24] LABS: Basophils % 0.5 %; Eosinophils # 0.2 10^3/uL (0.0-0.8); Hematocrit 39.7 % (42.0-52.0); Hemoglobin 12.9 g/dL (11.7-16.6); Lymphocytes # 1.1 10^3/uL (0.8-4.8); Lymphocytes % 18.9 %; Mean Corpuscular HGB Conc 32.5 g/dL (30.0-36.0); Mean Corpuscular Volume 89.2 fl (80-94); Mean Platelet Volume 11.3 fL (7.4-10.4); Monocytes # 0.4 10^3/uL (0.2-0.9); Monocytes % 7.1 %; Neutrophils # 4.24 10^3/uL (1.8-7.7); Neutrophils % 70.3 %; Nucleated Red Blood Cells % 0 %; Platelet Count 171 10^3/cmm (130-400); Red Blood Count 4.45 10^6/uL (4.1-5.3); Red Cell Distribution Width 14.6 % (12.1-15.1)
--- NOTE | 2023-01-28 05:58 | PC.NURSE ---
Patient complained that his heart feels jumpy . This was reported to Dr. Alicea, as well as, his heart rhythm, vital signs, and medications.
--- NOTE | 2023-01-28 06:03 | PC.NURSE ---
Orders to give [address] Alicea.
[2023-01-28] MEDS: metoprolol succinate ER (24 HR) 100 mg Tablet PO (06:07)
[2023-01-28] MEDS: spironolactone 25 mg Tablet PO (08:05)
[2023-01-28] MEDS: lisinopril 2.5 mg Tablet PO (08:05)
[2023-01-28] MEDS: pantoprazole DR 40 mg Tablet PO (08:05)
--- NOTE | 2023-01-28 08:23 | USCV_ITS ---
Damian Quesada Age: 47 Gender: M : 1975 Exam Date: 01/28/2023 10:30 Ordering Phys: Taran Jarrett MD Technologist: JUANA [place] [facility] [place]ication: ef BP: / HR: 94 Rhythm: Sinus Technical Quality: Adequate MEASUREMENTS (Male / Female) Normal Values 2D ECHO LV Diastolic Diameter PLAX 7.3 cm 4.2 - 5.9 / 3.9 - 5.3 cm LV Systolic Diameter PLAX 6.1 cm IVS Diastolic Thickness 1.2 cm 0.6 - 1.0 / 0.6 - 0.9 cm IVS Systolic Thickness 1.4 cm LVPW Diastolic Thickness 1.3 cm 0.6 - 1.0 / 0.6 - 0.9 cm LVPW Systolic Thickness 1.4 cm LVOT Diameter 2.2 cm LV Ejection Fraction 2D Teich 33.6 % LV Ejection Fraction MOD 2C 29.1 % LV Ejection Fraction 2C AL 28.7 % LA Diameter 4.8 cm IVC Diameter 3.2 cm M-MODE Aortic Annulus Diameter 2.7 cm LA Ao Ratio MM 1.8 MV E Point Septal Separation 2.5 cm DOPPLER AV Peak Velocity 209.0 cm/s LVOT Peak Velocity 83.0 cm/s AV Area Cont Eq vti 1.1 cm squared AV Area Cont Eq pk 1.5 cm squared MV Area PHT 9.0 cm squared Mitral E to A Ratio 1.0 MV E' Velocity 68.0 cm/s Mitral E to MV E' Ratio 18.4 Mitral E to LV E' Lateral Ratio 13.0 Mitral E to LV E' Septal Ratio 31.5 TR Peak Velocity 356.0 cm/s TR Peak Gradient 50.7 mmHg TV Peak E Velocity 57.0 cm/s Right Atrial Pressure 15.0 mmHg Pulmonary Artery Systolic Pressu 65.7 mmHg PV Peak Velocity 70.0 cm/s FINDINGS Left Ventricle Diffuse hypokinesia of the left ventricular ejection fraction of around 29% Moderately dilated LV Right Ventricle The right ventricle is normal in size and function. Right Atrium Mildly increased right atrial size. Left Atrium Mildly increased left atrial size. Mitral Valve Mildly thickened mitral valve. Mild mitral valve regurgitation. Aortic Valve The bioprosthetic valve the aortic position appears to be well- seated the velocity across the aortic valve was 2.09 m/s with a 17 mmHg Tricuspid Valve Mild to moderate tricuspid valve regurgitation. Moderate pulmonary hypertension with an estimated pulmonary artery peak systolic pressure of 66 mmHg Pulmonic Valve Structurally normal pulmonic valve without significant stenosis. There is no pulmonic regurgitation. Pericardium Normal pericardium without effusion. Aorta No gross abnormalities noted IVC Dilated IVC with decreased respiratory variation. CONCLUSIONS Diffuse hypokinesia of the left [id number] with an ejection fraction of around 29% Moderately dilated LV cavity Mild biatrial enlargement The right ventricle appears to be of normal size and ejection fraction Mildly thickened mitral valve. Mild mitral valve regurgitation. Mild to moderate tricuspid valve regurgitation. The bioprosthetic valve at the aortic position appears to be well-seated with a peak velocity of 2.09 m/s and a peak gradient of 17 mmHg. Moderate pulmonary hypertension with an estimated pulmonary artery peak systolic pressure of 66 mmHg. There is no pericardial effusion. There are no intracardiac masses. Comparison with the previous study from 01/04/2020 is difficult because of the difference in the technical quality. But the ejection fraction appears to have improved from 15% to 29%. The aortic valve appears to be replaced. Dr Shreyas Feldman MD [facility] (Electronically Signed) Final Date: 28 January 2023 14:44 S
[2023-01-28 09:37] LABS: Thyroid Stimulating Hormone 3.31 uIU/mL (0.27-4.20)
--- NOTE | 2023-01-28 09:49 | PM.CONSULT ---
Providers/Reason For Consult Consulting Physician/Specialty*: JERARDO Feldman MD/cardiology Reason for Consult*: Patient with SVT/atrial fibrillation Requesting Physician: Dr. Jarrett Attending Physician: Taran Jarrett Primary Care Provider: Ilya Saxena MD History of Present Illness History of Present Illness Damian Quesada is a 47 year old male with a history of bicuspid aortic valve, status post TAVR in 2019, he is present with complaints of palpitation and dizziness. In the ambulance, he was found to have a heart rate in the 240s with a low blood pressure. He had a cardioversion with 50 J of biphasic current. Apparently the rhythm was converted to atrial fibrillation with a controlled ventricular response rate. Cardiology consult is requested for further cardiac evaluation and recommendations. This patient had the valve replacement at the [facility] in April 2020. He was diagnosed with a bicuspid aortic valve. He also has a history of morbid obesity weighing around 500 pounds. He underwent weight loss surgery in 2020. He had lost more than 200 pounds since then. According the patient, he was in atrial fibrillation for a while after the valve replacement. He was placed on amiodarone. He stayed in sinus rhythm and was taken off the amiodarone after a year. Apparently he went back into fibrillation a month ago. He has been having episodes of palpitations for the last 1 month. He was seen by Dr. Goldstein, his manager business continuity at the [facility] in [place]. He was supposed to go back there today for a scheduled cardioversion. Yesterday evening he was trying to put the trash can out for trash pickup. Apparently he went into the fast heartbeat at that time. He was having fluttery feeling in the chest associate with some dizziness. He might have waited for 20 minutes or so. Since there was no relief, the ambulance was called in. In the ambulance, he was found to have a heart rate in the 240s. His blood pressure dropped into the 80s, systolic. At this point, the EMS decided to go ahead with a cardioversion. Apparently with a single shock of 50 J, he converted to atrial fibrillation with controlled ventricular response rate. This patient has been on the oral anticoagulation ever since his valve replacement. He has a history of cardiomyopathy congestive heart/. His ejection fraction was around 7% prior to the valve replacement. The ejection fraction improved to 41% by echocardiogram in 2020. Also has a history of hypertension. No history for diabetes, dyslipidemia, kidney disease or liver disease. He has been compliant with medications. He underwent a lap band surgery for the weight loss. Review of Systems Narrative: CONSTITUTIONAL: No fever or chills. EYES: No blurring of vision or other visual disturbances lately. ENT: No hoarseness of voice, auditory disturbances or sore throat. CARDIOVASCULAR: As mentioned above. RESPIRATORY: No significant cough. GASTROINTESTINAL: History of the Lap-Band surgery GENITOURINARY: No dysuria or hematuria. INTEGUMENTARY: No skin rashes or history of skin cancer. NEURO: No transient ischemic attacks or amaurosis. PSYCHIATRIC: No history of psychosis or major depression. HEMATOLOGIC: No bleeding disorders or significant anemia. ENDOCRINE: No history of polyuria or polydipsia. MUSCULOSKELETAL: No recent joint pain or swelling. ALLERGY/IMMUNOLOGY: As mentioned above.] Medications/Allergies Home Medications Medication Instructions Recorded Confirmed Last Taken Type ascorbic acid (vitamin C) 500 mg 500 mg PO DAILY 08/14/19 01/28/23 01/27/23 History tablet (Vitamin C) omeprazole 20 mg capsule,delayed 20 mg PO DAILY 09/18/19 01/28/23 01/27/23 History release loratadine 10 mg tablet 10 mg PO DAILY 03/17/20 01/28/23 01/27/23 History apixaban 5 mg tablet (Eliquis) See Rx Instructions .Route 12/10/22 01/28/23 01/27/23 Rx .COMPLEX #180 tabs metoprolol succinate 100 mg 100 mg PO DAILY 01/13/23 01/28/23 01/27/23 History tablet,extended release 24 hr spironolactone 25 mg tablet 25 mg PO DAILY 01/13/23 01/28/23 01/27/23 History biotin 10,000 mcg chewable tablet 10,000 mcg PO DAILY 01/28/23 01/28/23 01/27/23 History (Hair, Skin and Nails (biotin)) cholecalciferol (vitamin D3) 25 25 mcg PO DAILY 01/28/23 01/28/23 01/27/23 History mcg (1,000 unit) chewable tablet (Vitamin D3) lisinopril 5 mg tablet 5 mg PO DAILY 01/28/23 01/28/23 01/27/23 History multivitamin 1 tab PO DAILY 01/28/23 01/28/23 01/27/23 History Allergies Allergy/AdvReac Type Severity Reaction Status Date / Time No Known Allergies Allergy Verified 01/27/23 17:01 Current Medications Generic Name Dose Route Start Last Admin Trade Name Rell CEDILLON Reason Stop Dose Admin Apixaban 5 mg 01/27/23 23:14 01/28/23 08:04 Apixaban 5 Mg Tablet PO 5 mg BID@0900,2100 TRISTON Administration Lisinopril 2.5 mg 01/28/23 09:00 01/28/23 08:05 Lisinopril 2.5 Mg Tablet PO 2.5 mg DAILY TRISTON Administration Loratadine 10 mg 01/28/23 02:00 01/28/23 02:03 Loratadine 10 Mg Tablet PO 10 mg BEDTIME TRISTON Administration Metoprolol Succinate 100 mg 01/28/23 09:00 01/28/23 06:35 Metoprolol Succinate Er (24 Hr) 100 Mg Tablet PO Not Given DAILY TRISTON Pantoprazole Sodium 40 mg 01/28/23 09:00 01/28/23 08:[address] 40 Mg Tablet PO 40 mg DAILY TRISTON Administration Spironolactone 25 mg 01/28/23 09:00 01/28/23 08:05 Spironolactone 25 Mg Tablet PO 25 mg DAILY TRISTON Administration PFSH Acute PFSH: Medical History Atrial fibrillation Congestive heart failure HTN (hypertension) Iron deficiency anemia Morbid obesity with BMI of 60.0-69.9, adult Pickwickian syndrome Subcutaneous abscess Super obesity SVT (supraventricular tachycardia) Surgical History LAP-BAND surgery status S/P TAVR (transcatheter aortic valve replacement) Family History Mother Arrhythmia Social History Smoking and tobacco status: never smoked Alcohol intake: current Alcohol intake frequency: holidays/special occasions only Substance/Drug Use: never Household members: spouse Current occupational status: employed 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 Not in any acute distress. Obese HEENT: No significant pallor, icterus or lymphadenopathy.Oral cavity: There are no mucous membrane lesions. NECK: Trachea appears to be central. No masses noted. No JVD or thyromegaly appreciated. RESPIRATORY: Chest is symmetrical. No intercostals muscle retraction or any accessory muscle activation. There is no chest wall tenderness. Breath sounds are heard bilaterally. No rales or rhonchi heard. No evidence of any consolidation. BREASTS: Deferred. HEART: The heart sounds are normal. No S3 or S4. Systolic murmur at the base of the heart. No diastolic murmurs. No pericardial rub ABDOMEN: No vessel pulsations or distention. No tenderness. No organomegaly appreciated. Bowel sounds are normally heard. : Deferred. RECTAL: Deferred. LYMPHATIC: No lymphadenopathy noted in the neck. EXTREMITIES: Trace edema with no cyanosis. No clubbing. MUSCULOSKELETAL: No acute joint deformities or swelling SKIN: There are no significant rashes or ecchymosis NEUROPSYCHIATRIC: The patient is alert and oriented x3. Appears to be in a good mood. No tremors or rigidity noted. Data 01/28/23 03:36 01/27/23 17:01 Other Labs: Laboratory Last Values WBC 6.0 10^3/uL (4.0-10.0) 01/28/23 03:36 RBC 4.45 10^6/uL (4.1-5.3) 01/28/23 03:36 Hgb 12.9 g/dL (11.7-16.6) 01/28/23 03:36 Hct 39.7 % (42.0-52.0) L 01/28/23 03:36 MCV 89.2 fl (80-94) 01/28/23 03:36 MCH 29.0 pg (28.0-34.0) 01/28/23 03:36 MCHC 32.5 g/dL (30.0-36.0) 01/28/23 03:36 RDW 14.6 % (12.1-15.1) 01/28/23 03:36 Plt Count 171 10^3/cmm (130-400) 01/28/23 03:36 MPV 11.3 fL (7.4-10.4) H 01/28/23 03:36 Neut % (Auto) 70.3 % 01/28/23 03:36 Lymph % (Auto) 18.9 % 01/28/23 03:36 [place] % (Auto) 7.1 % 01/28/23 03:36 Eos % (Auto) 3.0 % 01/28/23 03:36 Baso % (Auto) 0.5 % 01/28/23 03:36 Neut # (Auto) 4.24 10^3/uL (1.8-7.7) 01/28/23 03:36 Lymph # (Auto) 1.1 10^3/uL (0.8-4.8) 01/28/23 03:36 [place] # (Auto) 0.4 10^3/uL (0.2-0.9) 01/28/23 03:36 Eos # (Auto) 0.2 10^3/uL (0.0-0.8) 01/28/23 03:36 Baso # (Auto) 0.0 10^3/uL (0.0-0.1) 01/28/23 03:36 Nucleated RBC % (auto) 0 % 01/28/23 03:36 Nucleated RBCs # 0.0 /100WBC 01/28/23 03:36 Sodium 141 mmol/L (136-145) 01/27/23 17:01 Potassium 3.7 mmol/L (3.5-5.1) 01/27/23 17:01 Chloride 103 mmol/L (98-107) 01/27/23 17:01 Carbon Dioxide 22 mmol/L (22-29) 01/27/23 17:01 Anion Gap 19.7 (5-19) H 01/27/23 17:01 BUN 14 mg/dL (6-20) 01/27/23 17:01 Creatinine 1.0 mg/dL (0.7-1.2) 01/27/23 17:01 GFR Calculation 79.4 mL/min (90-130) L 01/27/23 17:01 Glucose 202 mg/dL (65-115) H 01/27/23 17:01 Calculated Osmolality 298 mOsm/kg (285-295) H 01/27/23 17:01 Calcium 8.8 mg/dL (8.5-10.5) 01/27/23 17:01 Magnesium 2.0 mg/dL (1.7-2.3) 01/28/23 03:36 Total Bilirubin 0.7 mg/dL (0.15-1.2) 01/27/23 17:01 AST 58 U/L (0-40) H 01/27/23 17:01 ALT 36 U/L (0-41) 01/27/23 17:01 Alkaline Phosphatase 109 U/L (40-130) 01/27/23 17:01 Troponin T Baseline 20 ng/L (0-15) H 01/27/23 17:01 Troponin T 120 Minute 28.97 ng/L (0-15) H 01/27/23 19:20 Delta Troponin T 8.97 ABS# (0-10) 01/27/23 19:20 Troponin T Hi Sens 6Hr 24.15 ng/L (0-15) H 01/27/23 22:49 Troponin T Hi Sens 6Hr Delta 4.15 ng/L (0-12) 01/27/23 22:49 Total Protein 6.4 g/dL (6.6-8.7) L 01/27/23 17:01 Albumin 3.9 g/dL (3.5-5.2) 01/27/23 17:01 Globulin 2.5 g/dL (1.3-4.6) 01/27/23 17:01 TSH 3.31 uIU/mL (0.27-4.20) 01/28/23 03:36 EKG 1: My Interpretation: The EKG shows atrial fibrillation with a rate of 52 bpm. Poor R wave progression. Diffuse nonspecific T wave changes. The rhythm strip from the ambulance shows supraventricular tachycardia, possibly atrial flutter with rapid ventricular rate. Current telemetry shows atrial fibrillation with a ventricular rate of 110 bpm. A&P Assessment and plan (1) SVT (supraventricular tachycardia): Most likely patient had atrial flutter with rapid ventricular rate. He is in atrial fibrillation with intermittent rapid ventricular rate. Patient status post cardioversion. For further management of his condition, it would be appropriate to restart the amiodarone. After the loading dose of amiodarone,I may consider electrical cardioversion again. Based on the patient's clinical progress, further recommendations will be made. (2) Intermittent atrial fibrillation: Patient is on long-term oral anticoagulation. This may be continued. He is on a beta-shilo which may be continued. (3) HTN (hypertension): Blood pressure is in the normal range at this time. Advised to continue the current medication for the time being (4) Status post transcatheter aortic valve replacement (TAVR) using bioprosthesis: We may go ahead and do a transthoracic echocardiogram to evaluate the valve and the LV function (5) Non-ischemic cardiomyopathy: Patient had significant improvement in the LV ejection fraction from 7% to 41%. Repeat echocardiogram is pending Plan We may consider electrical cardioversion tomorrow. We will keep n.p.o. after midnight. After reviewing the above and also based on the patient's clinical progress, further recommendations will be made. Thank you for the opportunity to evaluate this patient and make these recommendations Consult Attestations Medical Necessity Statement: Patient requires continued hospital stay for close monitoring and further management Coding Level of Care Code 73370 Diagnoses SVT (supraventricular tachycardia) I47.1 Intermittent atrial fibrillation I48.0 HTN (hypertension) I10 Status post transcatheter aortic valve replacement (TAVR) using bioprosthesis Z95.3 Non-ischemic cardiomyopathy I42.8
--- NOTE | 2023-01-28 19:47 | P.PN_ITS ---
Subjective Subjective: This morning he is doing well. In atrial fibrillation. No additional tachycardia so far. Discussed with him called and notified his general activities therapist office in [place] regarding his admission. He tells me his recent echocardiogram back in 2020 showed ejection fraction in the 40s. Vitals/I&O/Wt Last Vital Signs Temp 97.8 F 01/27/23 19:30 Pulse 83 01/28/23 16:45 Resp 21 H 01/28/23 16:45 BP 133/99 01/28/23 16:30 Pulse Ox 97 01/28/23 16:45 O2 Del Method Room Air 01/28/23 16:45 01/28/23 01/28/23 01/28/23 06:59 14:59 22:59 Intake Total 583 / 583 250 / 833 Output Total 250 / 250 Balance 583 / 583 0 / 583 Weight last 48 hrs Weight 138.799 kg Weight 129.274 kg Physical Exam Narrative: Accompanied by his . Const: COMMON NORMALS: patient oriented x3 and alert GENERAL APPEARANCE: cooperative ORIENTATION/CONSCIOUSNESS: Yes awake HENMT: COMMON NORMALS: oropharynx normal Neck/C-Spine: COMMON NORMALS: no JVD Resp: COMMON NORMALS: normal respiratory effort and clear to auscultation bilaterally AUSCULTATION: clear to auscultation bilaterally Cardio: COMMON NORMALS: no JVD, S1 normal heart sound present, S2 normal heart sound present and No murmurs present (Cardio) RHYTHM: abnormal rhythm irregularly irregular HEART SOUNDS: S1 normal heart sound present and S2 normal heart sound present GI: COMMON NORMALS: Normal to inspection, nondistended, normoactive bowel sounds present, Soft to palpation and non-tender PALPATION: Yes Soft to palpation Extremity: COMMON NORMALS: no joint enlargement and no pedal edema Neuro: COMMON NORMALS: patient oriented x3 and moves all extremities SENSORIUM/ORIENTATION: Yes alert Skin: COMMON NORMALS: no rashes or lesions noted GENERAL SKIN EXAM: no rashes or lesions noted Data 01/28/23 03:36 01/27/23 17:01 A&P Assessment and plan (1) SVT (supraventricular tachycardia): Unstable SVT on the way to the hospital required cardioversion due to hypotension, heart rates in to 240s. At risk of recurrence of severe potentially life-threatening arrhythmia. Discussed with them consultation with cardiology. Additionally noted echocardiogram previously back in 2019 EF was 15%, severe cardiomyopathy, requested repeat echocardiogram. Reviewed cardiology documentation from 2019. Speaking with his general activities therapist office ejection fraction on repeat study in 2020 was up to 40s. Requested cardiology consultation, discussed with cardiology. Note reviewed. Amiodarone. Plan for cardioversion for atrial fibrillation tomorrow. (2) Atrial fibrillation: As he is still in atrial fibrillation despite cardioversion for SVT, as per discussion with cardiology they are loading him with amiodarone with plans for as per discussion with him DC cardioversion tomorrow. Continue apixaban Called his general activities therapist this morning, left message to notify about patient's admission. Telemetry monitoring due to risk of life-threatening arrhythmia. (3) HTN (hypertension): Monitor blood pressure. Cardiac diet. Continue lisinopril Continue Aldactone Continue metoprolol Plan DVT prophylaxis: Apixaban CODE STATUS: Full code Attestations Medical Necessity Statement*: Continue admission for assessment management following unstable SVT, persistent atrial fibrillation. Diagnoses SVT (supraventricular tachycardia) I47.1 Atrial fibrillation I48.91 HTN (hypertension) I10
[2023-01-29] VITALS (29 sets, daily range): BP systolic 124–156; BP diastolic 91–124; PULSE 71–145; RESP 12–30; TEMP 36.4; O2SAT 89–99
[2023-01-29 05:07] LABS: Basophils % 0.4 %; Eosinophils # 0.2 10^3/uL (0.0-0.8); Eosinophils % 2.4 %; Hematocrit 44.6 % (42.0-52.0); Hemoglobin 14.2 g/dL (11.7-16.6); Lymphocytes # 1.1 10^3/uL (0.8-4.8); Lymphocytes % 15.2 %; Mean Corpuscular HGB Conc 31.8 g/dL (30.0-36.0); Mean Corpuscular Hemoglobin 29.2 pg (28.0-34.0); Mean Corpuscular Volume 91.6 fl (80-94); Mean Platelet Volume 11.1 fL (7.4-10.4); Monocytes # 0.6 10^3/uL (0.2-0.9); Monocytes % 7.4 %; Neutrophils % 74.2 %; Nucleated Red Blood Cells % 0 %; Platelet Count 190 10^3/cmm (130-400); Red Blood Count 4.87 10^6/uL (4.1-5.3); Red Cell Distribution Width 14.7 % (12.1-15.1); White Blood Count 7.4 10^3/uL (4.0-10.0)
[2023-01-29 05:28] LABS: Alanine Aminotransferase 28 U/L (0-41); Albumin Level 3.4 g/dL (3.5-5.2); Alkaline Phosphatase 86 U/L (40-130); Anion Gap 15.8 (5-19); Aspartate Amino Transferase 41 U/L (0-40); Blood Urea Nitrogen 14 mg/dL (6-20); Calcium 8.8 mg/dL (8.5-10.5); Carbon Dioxide 22 mmol/L (22-29); Chloride 105 mmol/L (98-107); Globulin 3.4 g/dL (1.3-4.6); Glomerular Filtration Rate 119.9 mL/min (90-130); Glucose 101 mg/dL (65-115); Magnesium 1.9 mg/dL (1.7-2.3); Osmolality Calculated 289 mOsm/kg (285-295); Potassium 3.8 mmol/L (3.5-5.1); Sodium 139 mmol/L (136-145); Total Bilirubin 0.8 mg/dL (0.15-1.2); Total Protein 6.8 g/dL (6.6-8.7)
--- NOTE | 2023-01-29 07:58 | P.PN_ITS ---
Subjective Subjective: Patient had some episodes of palpitations tonight. Currently seems to be doing okay. Telemetry shows atrial fibrillation with a rapid ventricular rate of around 123 bpm. No chest pain. No shortness of breath. Had echocardiogram yesterday. LV ejection fraction was found to be around 29%. The LV cavity was found to be dilated moderately. The aortic valve bioprosthesis appears to be well-seated. No significant gradient across the valve. Medications: Medication Review Details: Patient is on IV amiodarone. Vitals/I&O/Wt Last Vital Signs Temp 97.8 F 01/27/23 19:30 Pulse 121 H 01/29/23 05:21 Resp 27 H 01/29/23 05:00 BP 126/92 01/29/23 05:00 Pulse Ox 97 01/29/23 05:00 O2 Del Method Room Air 01/28/23 16:45 01/28/23 01/29/23 01/29/23 22:59 06:59 14:59 Intake Total 857.18 / 1440.18 0 / 1440.18 Output Total 250 / 250 0 / 250 Balance 607.18 / 1190.18 0 / 1190.18 Weight last 48 hrs Weight 306 lb Weight 285 lb Physical Exam Narrative: GENERAL: The patient is alert and oriented times three. Not in any acute distress. HEENT: No significant pallor, icterus or lymphadenopathy.Oral cavity: There are no mucous membrane lesions. NECK: Trachea appears to be central. No masses noted. No JVD or thyromegaly appreciated. RESPIRATORY: Chest is symmetrical. No intercostals muscle retraction or any accessory muscle activation. There is no chest wall tenderness. Breath sounds are heard bilaterally. No rales or rhonchi heard. No evidence of any conso lidation. BREASTS: Deferred. HEART: The heart sounds are normal. No S3 or S4. Short systolic murmur at the base of the heart. No diastolic murmurs. No pericardial rub ABDOMEN: No vessel pulsations or distention. No tenderness. No organomegaly appreciated. Bowel sounds are normally heard. : Deferred. RECTAL: Deferred. LYMPHATIC: No lymphadenopathy noted in the neck. EXTREMITIES: No edema or cyanosis. No clubbing. MUSCULOSKELETAL: No acute joint deformities or swelling SKIN: There are no significant rashes or ecchymosis NEUROPSYCHIATRIC: The patient is alert and oriented x3. Appears to be in a good mood. No tremors or rigidity noted. Data 01/29/23 04:25 01/29/23 04:32 Other Labs: Laboratory Last Values WBC 7.4 10^3/uL (4.0-10.0) 01/29/23 04:25 RBC 4.87 10^6/uL (4.1-5.3) 01/29/23 04:25 Hgb 14.2 g/dL (11.7-16.6) 01/29/23 04:25 Hct 44.6 % (42.0-52.0) 01/29/23 04:25 MCV 91.6 fl (80-94) 01/29/23 04:25 MCH 29.2 pg (28.0-34.0) 01/29/23 04:25 MCHC 31.8 g/dL (30.0-36.0) 01/29/23 04:25 RDW 14.7 % (12.1-15.1) 01/29/23 04:25 Plt Count 190 10^3/cmm (130-400) 01/29/23 04:25 MPV 11.1 fL (7.4-10.4) H 01/29/23 04:25 Neut % (Auto) 74.2 % 01/29/23 04:25 Lymph % (Auto) 15.2 % 01/29/23 04:25 [place] % (Auto) 7.4 % 01/29/23 04:25 Eos % (Auto) 2.4 % 01/29/23 04:25 Baso % (Auto) 0.4 % 01/29/23 04:25 Neut # (Auto) 5.50 10^3/uL (1.8-7.7) 01/29/23 04:25 Lymph # (Auto) 1.1 10^3/uL (0.8-4.8) 01/29/23 04:25 [place] # (Auto) 0.6 10^3/uL (0.2-0.9) 01/29/23 04:25 Eos # (Auto) 0.2 10^3/uL (0.0-0.8) 01/29/23 04:25 Baso # (Auto) 0.0 10^3/uL (0.0-0.1) 01/29/23 04:25 Nucleated RBC % (auto) 0 % 01/29/23 04:25 Nucleated RBCs # 0.0 /100WBC 01/29/23 04:25 Sodium 139 mmol/L (136-145) 01/29/23 04:32 Potassium 3.8 mmol/L (3.5-5.1) 01/29/23 04:32 Chloride 105 mmol/L (98-107) 01/29/23 04:32 Carbon Dioxide 22 mmol/L (22-29) 01/29/23 04:32 Anion Gap 15.8 (5-19) 01/29/23 04:32 BUN 14 mg/dL (6-20) 01/29/23 04:32 Creatinine 0.7 mg/dL (0.7-1.2) 01/29/23 04:32 GFR Calculation 119.9 mL/min (90-130) 01/29/23 04:32 Glucose 101 mg/dL (65-115) 01/29/23 04:32 Calculated Osmolality 289 mOsm/kg (285-295) 01/29/23 04:32 Calcium 8.8 mg/dL (8.5-10.5) 01/29/23 04:32 Magnesium 1.9 mg/dL (1.7-2.3) 01/29/23 04:32 Total Bilirubin 0.8 mg/dL (0.15-1.2) 01/29/23 04:32 AST 41 U/L (0-40) H 01/29/23 04:32 ALT 28 U/L (0-41) 01/29/23 04:32 Alkaline Phosphatase 86 U/L (40-130) 01/29/23 04:32 Troponin T Baseline 20 ng/L (0-15) H 01/27/23 17:01 Troponin T 120 Minute 28.97 ng/L (0-15) H 01/27/23 19:20 Delta Troponin T 8.97 ABS# (0-10) 01/27/23 19:20 Troponin T Hi Sens 6Hr 24.15 ng/L (0-15) H 01/27/23 22:49 Troponin T Hi Sens 6Hr Delta 4.15 ng/L (0-12) 01/27/23 22:49 Total Protein 6.8 g/dL (6.6-8.7) 01/29/23 04:32 Albumin 3.4 g/dL (3.5-5.2) L 01/29/23 04:32 Globulin 3.4 g/dL (1.3-4.6) 01/29/23 04:32 TSH 3.31 uIU/mL (0.27-4.20) 01/28/23 03:36 Other data: Diffuse hypokinesia of the left [id number] with an ejection ?fraction of around 29% ?Moderately dilated LV cavity ?Mild biatrial enlargement ?The right ventricle appears to be of normal size and ejection ?fraction ?Mildly thickened mitral valve. Mild mitral valve regurgitation. ?Mild to moderate tricuspid valve regurgitation. ?The bioprosthetic valve at the aortic position appears to be ?well-seated with a peak velocity of 2.09 m/s and a peak gradient ?of 17 mmHg. ? Moderate pulmonary hypertension with an estimated pulmonary ?artery peak systolic pressure of 66 mmHg. ?There is no pericardial effusion. ?There are no intracardiac masses. ?Comparison with the previous study from 01/04/2020 is difficult ?because of the difference in the technical quality.? But the ?ejection fraction appears to have improved from 15% to 29%.? The ?aortic valve appears to be replaced. A&P Assessment and plan (1) SVT (supraventricular tachycardia): Has consult for SVT/atrial flutter. Patient may continue on the current medications. (2) Intermittent atrial fibrillation: Patient is on long-term oral anticoagulation. Currently he is in atrial fibrillation with rapid ventricular rate. Consider cardioversion today. The risk of malignant ventricular arrhythmia, stroke, aspiration, heart blocks and other concomitant complications were explained in detail. Patient understood this well and consented to proceed (3) HTN (hypertension): Blood pressure is in the normal range at this time. Advised to continue the current medication for the time being (4) Status post transcatheter aortic valve replacement (TAVR) using bioprosthesis: The bioprosthetic valve the aortic position appears to be well-seated. Normal gradient across the valve. At this point, patient may continue on the current management. (5) Non-ischemic cardiomyopathy: The LV ejection fraction needs 29% based on the echocardiogram. We may consider starting the patient on Entresto. Also will consider LifeVest, while optimizing medical treatment. Plan Based on the patient's clinical progress, further management decisions will be made. Attestations Medical Necessity Statement*: Patient requires continued hospital stay for close monitoring and further management Coding Level of Care Code 80465 Diagnoses SVT (supraventricular tachycardia) I47.1 Intermittent atrial fibrillation I48.0 HTN (hypertension) I10 Status post transcatheter aortic valve replacement (TAVR) using bioprosthesis Z95.3 Non-ischemic cardiomyopathy I42.8
[2023-01-29] MEDS: metoprolol tartrate 50 mg Tablet PO (08:36)
--- NOTE | 2023-01-29 09:49 | PC.NURSE ---
Dr camacho here with anesthesia and controverted after time out done shocked with 120 sync to SR
--- NOTE | 2023-01-29 10:09 | PM.OP ---
Operative Report Date of procedure: January 29, 2023 Procedure: Electrical cardioversion report Preprocedure diagnoses: Symptomatic atrial flutter/fibrillation Brief history: 47-year-old white male with history of bicuspid aortic valve, status post TAVR, initially presented with an episode of SVT, possibly atrial flutter with rapid ventricular rate was found to be hypotensive but this episode. Received a single shock with 50 J of biphasic current in the ambulance. The rhythm was converted to atrial fibrillation. Patient remained in atrial fibrillation with intermittent rapid ventricular rate in the ICU. Patient was started on IV amiodarone. For further management of his condition, a repeat cardioversion was recommended. Location of the procedure: ICU Electrode application: Anteroposterior Electrical energy applied: 120 J of biphasic Number of shocks: Single Final rhythm: Normal sinus rhythm with a rate of 72 bpm Final blood pressure: 128/72 Complications: None Recommendation(s): Continue on the amiodarone and a low-dose of beta-shilo. Because of his low ejection fraction he also need to be started on Entresto as an outpatient. May benefit from LifeVest-need to be discussed
--- NOTE | 2023-01-29 10:13 | P.ANESASSM_ITS ---
Pre-Anesthetic Assessment Height/Weight: Height 1.85 m Weight 138.799 kg Temp Pulse Resp BP Pulse Ox O2 Del Method 97.8 F 109 H 26 H 141/115 97 Room Air 01/27/23 19:30 01/29/23 08:00 01/29/23 08:00 01/29/23 08:00 01/29/23 08:00 01/28/23 16:45 Social No alcohol and No tobacco Airway Submandibular: within normal limits Cervical ROM: Other (limited) Mallampati: Class III CV/HEM Atrial Fibrillation, Arrythmia and Hypertension Bicuspid AV s/p TAVR Metabolic Diabetes Mellitus Anesthetic Plan ASA status: 3E Anesthesia: MAC Medications/Allergies Home Medications Medication Instructions Recorded Confirmed Last Taken Type ascorbic acid (vitamin C) 500 mg 500 mg PO DAILY 08/14/19 01/28/23 01/27/23 History tablet (Vitamin C) omeprazole 20 mg capsule,delayed 20 mg PO DAILY 09/18/19 01/28/23 01/27/23 History release loratadine 10 mg tablet 10 mg PO DAILY 03/17/20 01/28/23 01/27/23 History apixaban 5 mg tablet (Eliquis) See Rx Instructions .Route 12/10/22 01/28/23 01/27/23 Rx .COMPLEX #180 tabs metoprolol succinate 100 mg 100 mg PO DAILY 01/13/23 01/28/23 01/27/23 History tablet,extended release 24 hr spironolactone 25 mg tablet 25 mg PO DAILY 01/13/23 01/28/23 01/27/23 History biotin 10,000 mcg chewable tablet 10,000 mcg PO DAILY 01/28/23 01/28/23 01/27/23 History (Hair, Skin and Nails (biotin)) cholecalciferol (vitamin D3) 25 25 mcg PO DAILY 01/28/23 01/28/23 01/27/23 History mcg (1,000 unit) chewable tablet (Vitamin D3) lisinopril 5 mg tablet 5 mg PO DAILY 01/28/23 01/28/23 01/27/23 History multivitamin 1 tab PO DAILY 01/28/23 01/28/23 01/27/23 History Allergies Allergy/AdvReac Type Severity Reaction Status Date / Time No Known Allergies Allergy Verified 01/27/23 17:01 Additional Medication Information Patient is on IV amiodarone. [facility] Anesthesia Medical History Atrial fibrillation Congestive heart failure HTN (hypertension) Iron deficiency anemia Morbid obesity with BMI of 60.0-69.9, adult Pickwickian syndrome Subcutaneous abscess Super obesity SVT (supraventricular tachycardia) Surgical History LAP-BAND surgery status S/P TAVR (transcatheter aortic valve replacement) Family History Mother Arrhythmia Social History Smoking and tobacco status: never smoked Alcohol intake: current Alcohol intake frequency: holidays/special occasions only Substance/Drug Use: never Household members: spouse Current occupational status: employed 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 Data Anesthesia 01/29/23 04:25 01/29/23 04:32 Short CBC 01/27/23 01/28/23 01/29/23 Range/Units 17:01 03:36 04:25 WBC 7.6 6.0 7.4 (4.0-10.0) 10^3/uL Hgb 14.8 12.9 14.2 (11.7-16.6) g/dL Hct 43.3 39.7 L 44.6 (42.0-52.0) % MCV 88.5 89.2 91.6 (80-94) fl Plt Count 207 171 190 (130-400) 10^3/cmm Neut % (Auto) 81.5 70.3 74.2 % Neut # (Auto) 6.22 4.24 5.50 (1.8-7.7) 10^3/uL BMP 01/27/23 01/29/23 17:01 04:32 Sodium 141 139 Potassium 3.7 3.8 Chloride 103 105 Carbon Dioxide 22 22 BUN 14 14 Creatinine 1.0 0.7 Glucose 202 H 101 Calcium 8.8 8.8 Cardiac Enzymes 01/27/23 01/27/23 01/27/23 Range/Units 17:01 19:20 22:49 Troponin T Baseline 20 H (0-15) ng/L Troponin T 120 Minute 28.97 H (0-15) ng/L Delta Troponin T 8.97 (0-10) ABS# Troponin T Hi Sens 6Hr 24.15 H (0-15) ng/L Troponin T Hi Sens 6Hr Delta 4.15 (0-12) ng/L Liver Function 01/27/23 01/29/23 Range/Units 17:01 04:32 Total Bilirubin 0.7 0.8 (0.15-1.2) mg/dL AST 58 H 41 H (0-40) U/L ALT 36 28 (0-41) U/L Alkaline Phosphatase 109 86 (40-130) U/L Albumin 3.9 3.4 L (3.5-5.2) g/dL Cardiac Studies: Echocardiogram 01/28/23 Echocardiogram Ultrasound 08/14/19 Holter Monitor 11/22/19
[2023-01-29] MEDS: amiodarone 200 mg Tablet 400 MG PO (11:27)
--- NOTE | 2023-01-29 15:29 | P.DS_ITS ---
Discharge Providers Date of Admission: 01/28/23 15:37 Date of Discharge: January 29, 2023 Attending Provider at Admission: Santy Leone MD Attending Provider at Discharge: Taran Jarrett Primary Care Provider: Ilya Saxena MD Diagnoses at Discharge Discharge Diagnosis (1) SVT (supraventricular tachycardia): Status: Acute (2) Intermittent atrial fibrillation: Status: Acute (3) HTN (hypertension): Status: Acute (4) Status post transcatheter aortic valve replacement (TAVR) using bioprosthes is: Status: Acute (5) Non-ischemic cardiomyopathy: Status: Acute Reason for Visit Reason for Visit: [facility] Hospital Course Hospital Course Pleasant 47-year-old gentleman with history of cardiomyopathy, decreased ejection fraction, previously as low as 50%, status post TAVR, subsequently ejection fraction up to 40s in 2020, follows with cardiology in [place] Dr. Duran, additionally paroxysmal atrial fibrillation was scheduled for elective outpatient cardioversion on 01/28, normally on extended release metoprolol 100 mg daily, Mik, was hospitalized following an episode of unstable SVT, heart rates in the 240s, hypotensive, unresponsive to vagal maneuvers, underwent 50 J synchronized cardioversion, subsequently in atrial fibrillation with slow ventricular response. Troponin EKG series not suggestive of cardiac ischemia. Assessed by NETTA with noted some worsening of ejection fraction from prior down to 29%. Possibly worsened by arrhythmia though not certain. Was assessed by cardiology, and planned with them DC cardioversion in the hospital predischarge, was loaded with amiodarone and underwent successful DC cardioversion to sinus rhythm today. Doing well subsequently, he is to continue on amiodarone 400 twice daily per cardiology for 1 week then switch to 400 daily. Decrease metoprolol to 50 mg daily. Due to decrease in ejection fraction is being set up with LifeVest which she preferred not to wait for and will be fitted with it at home. Has been volume compensated during hospitalization. Please follow-up cardiomyopathy. Consider initiation of Entresto. Follow-up while on amiodarone for any amiodarone related complications. Physical Exam Narrative: at bedside. Const: COMMON NORMALS: patient oriented x3 and alert GENERAL APPEARANCE: cooperative ORIENTATION/CONSCIOUSNESS: Yes awake HENMT: COMMON NORMALS: oropharynx normal Neck/C-Spine: COMMON NORMALS: no JVD Resp: COMMON NORMALS: normal respiratory effort and clear to auscultation bilaterally AUSCULTATION: clear to auscultation bilaterally Cardio: COMMON NORMALS: no JVD, regular rhythm, S1 normal heart sound present, S2 normal heart sound present and No murmurs present (Cardio) RHYTHM: regular rhythm HEART SOUNDS: S1 normal heart sound present and S2 normal heart sound present GI: COMMON NORMALS: Normal to inspection, nondistended, normoactive bowel sounds present, Soft to palpation and non-tender PALPATION: Yes Soft to palpation Extremity: COMMON NORMALS: no joint enlargement and no pedal edema Neuro: COMMON NORMALS: patient oriented x3 and moves all extremities SENSORIUM/ORIENTATION: Yes alert Skin: COMMON NORMALS: no rashes or lesions noted GENERAL SKIN EXAM: no rashes or lesions noted Discharge Data Studies Completed and Pending Completed Studies During Hospitalization Category Date Time Status XR chest 1V portable [id number] Stat Exams 01/27/23 17:00 Completed CV. echo complete* [id number] Routine Ultrasound 01/28/23 08:23 Completed Pending at discharge Category Date Time Status Comprehensive Metabolic Panel AM LABS Lab 01/30/23 04:00 Ordered Comprehensive Metabolic Panel AM LABS Lab 01/31/23 04:00 Ordered Radiology Impressions Chest X-Ray 01/27/23 17:00 IMPRESSION: No acute findings. Laboratory Results WBC 7.4 10^3/uL (4.0-10.0) 01/29/23 04:25 RBC 4.87 10^6/uL (4.1-5.3) 01/29/23 04:25 Hgb 14.2 g/dL (11.7-16.6) 01/29/23 04:25 Hct 44.6 % (42.0-52.0) 01/29/23 04:25 MCV 91.6 fl (80-94) 01/29/23 04:25 MCH 29.2 pg (28.0-34.0) 01/29/23 04:25 MCHC 31.8 g/dL (30.0-36.0) 01/29/23 04:25 RDW 14.7 % (12.1-15.1) 01/29/23 04:25 Plt Count 190 10^3/cmm (130-400) 01/29/23 04:25 MPV 11.1 fL (7.4-10.4) H 01/29/23 04:25 Neut % (Auto) 74.2 % 01/29/23 04:25 Lymph % (Auto) 15.2 % 01/29/23 04:25 [place] % (Auto) 7.4 % 01/29/23 04:25 Eos % (Auto) 2.4 % 01/29/23 04:25 Baso % (Auto) 0.4 % 01/29/23 04:25 Neut # (Auto) 5.50 10^3/uL (1.8-7.7) 01/29/23 04:25 Lymph # (Auto) 1.1 10^3/uL (0.8-4.8) 01/29/23 04:25 [place] # (Auto) 0.6 10^3/uL (0.2-0.9) 01/29/23 04:25 Eos # (Auto) 0.2 10^3/uL (0.0-0.8) 01/29/23 04:25 Baso # (Auto) 0.0 10^3/uL (0.0-0.1) 01/29/23 04:25 Nucleated RBC % (auto) 0 % 01/29/23 04:25 Nucleated RBCs # 0.0 /100WBC 01/29/23 04:25 Sodium 139 mmol/L (136-145) 01/29/23 04:32 Potassium 3.8 mmol/L (3.5-5.1) 01/29/23 04:32 Chloride 105 mmol/L (98-107) 01/29/23 04:32 Carbon Dioxide 22 mmol/L (22-29) 01/29/23 04:32 Anion Gap 15.8 (5-19) 01/29/23 04:32 BUN 14 mg/dL (6-20) 01/29/23 04:32 Creatinine 0.7 mg/dL (0.7-1.2) 01/29/23 04:32 GFR Calculation 119.9 mL/min (90-130) 01/29/23 04:32 Glucose 101 mg/dL (65-115) 01/29/23 04:32 Calculated Osmolality 289 mOsm/kg (285-295) 01/29/23 04:32 Calcium 8.8 mg/dL (8.5-10.5) 01/29/23 04:32 Magnesium 1.9 mg/dL (1.7-2.3) 01/29/23 04:32 Total Bilirubin 0.8 mg/dL (0.15-1.2) 01/29/23 04:32 AST 41 U/L (0-40) H 01/29/23 04:32 ALT 28 U/L (0-41) 01/29/23 04:32 Alkaline Phosphatase 86 U/L (40-130) 01/29/23 04:32 Troponin T Baseline 20 ng/L (0-15) H 01/27/23 17:01 Troponin T 120 Minute 28.97 ng/L (0-15) H 01/27/23 19:20 Delta Troponin T 8.97 ABS# (0-10) 01/27/23 19:20 Troponin T Hi Sens 6Hr 24.15 ng/L (0-15) H 01/27/23 22:49 Troponin T Hi Sens 6Hr Delta 4.15 ng/L (0-12) 01/27/23 22:49 Total Protein 6.8 g/dL (6.6-8.7) 01/29/23 04:32 Albumin 3.4 g/dL (3.5-5.2) L 01/29/23 04:32 Globulin 3.4 g/dL (1.3-4.6) 01/29/23 04:32 TSH 3.31 uIU/mL (0.27-4.20) 01/28/23 03:36 Vitals Last Vital Signs Temp 97.5 F L 01/29/23 10:00 Pulse 79 01/29/23 12:22 Resp 16 01/29/23 12:22 BP 124/94 01/29/23 12:00 Pulse Ox 96 01/29/23 12:22 O2 Del Method Room Air 01/29/23 12:22 Discharge Plan Discharge Patient Disposition: Home Condition: Stable Prescriptions: New amiodarone 400 mg tablet See Rx Instructions .ROUTE .COMPLEX Qty: 90 0RF Rx Instructions: 400 mg orally BID for 1 week, then 400mg daily Continued omeprazole 20 mg capsule,delayed release(DR/EC) 20 mg PO DAILY Eliquis 5 mg tablet See Rx Instructions .ROUTE .COMPLEX Qty: 180 3RF Dose Instruction: TAKE 1 TABLET BY MOUTH TWO TIMES DAILY Rx Instructions: TAKE 1 TABLET BY MOUTH TWO TIMES DAILY spironolactone 25 mg tablet 25 mg PO DAILY ascorbic acid (vitamin C) [Vitamin C] 500 mg Tablet 500 mg PO DAILY loratadine 10 mg Tablet 10 mg PO DAILY multivitamin Tablet 1 tab PO DAILY lisinopril 5 mg tablet 5 mg PO DAILY Vitamin D3 25 mcg (1,000 unit) Tablet,Chewable 25 mcg PO DAILY Hair, Skin and Nails (biotin) 10,000 mcg Tablet,Chewable 10,000 mcg PO DAILY Changed metoprolol succinate 100 mg tablet extended release 24 hr 50 mg PO DAILY Qty: 1 0RF Rx Instructions: Dose change only Discharge Orders: Discharge Order (Routine); Ordered 01/29/23 Ordered By: Taran Jarrett Referrals: Ilya Saxena MD [Primary Care Provider] - 4-7 days Discharge Diet: Cardiac Patient Instructions: Amiodarone (By mouth), A-fib (Atrial Fibrillation) (GEN), Supraventricular Tachycardia (GEN), Dilated Cardiomyopathy (GEN), Cardioversion (GEN) Activity Restrictions/Additional Instructions: Please continue amiodarone 400 mg twice daily for 1 week then switch to 400 mg daily. Follow-up with your primary provider and cardiology. Follow-up with your primary doctor and cardiology with regards to needed reassessment with amiodarone including your eyes, lungs, thyroid, liver for any adverse effects with this medication. Follow-up with cardiology with regards to some worsening of cardiomyopathy, ejection fraction decreased down to 29%. This puts you at risk of congestive heart failure. Avoid excessive salt intake, avoid fluid overload. Additionally increased risk of potentially life-threatening arrhythmia, complete set up for LifeVest, follow-up with cardiology. Please call Tuesday to schedule follow-up appointment with Cardiology [phone] Please call Tuesday to schedule follow-up with Dr. Saxena. Monitor blood pressures at home twice daily, write down values to bring to your appointment. In case of any recurrent or new concerning symptoms, seek medical attention. Discharge Attestations Time Spent in Discharge Care*: greater than 30 min Quality Metrics Clinical Quality Measures [ No reported AMI, CVA or VTE this stay] Coding Level of Care Code 69851 Total time (in minutes) for Discharge: 45 Diagnoses SVT (supraventricular tachycardia) I47.1 Intermittent atrial fibrillation I48.0 HTN (hypertension) I10 Status post transcatheter aortic valve replacement (TAVR) using bioprosthesis Z95.3 Non-ischemic cardiomyopathy I42.8
== END 2023-01-29 15:54 | disposition home or self-care (01) ==
LOC: ER 17:09 → ICU 18:47
PROVIDERS: Internal Medicine; Admitting Provider Internal Medicine; Emergency Provider Family Medicine; PCP Family Medicine; Visit Provider Internal Medicine
DX: I47.1 Supraventricular tachycardia (principal); I48.0 Paroxysmal atrial fibrillation; I10 Essential (primary) hypertension; Z95.3 Presence of xenogenic heart valve; I42.8 Other cardiomyopathies; E66.01 Morbid (severe) obesity due to excess calories; Z68.41 Body mass index [BMI] 40.0-44.9, adult; Z98.84 Bariatric surgery status; Z79.01 Long term (current) use of anticoagulants
CPT/HCPCS: 36415; 71045; 80053; 83735; 84443; 84484; 85025; 93005; 93306; 99285; A4222; G0378; J0282; J2704; J7060

== ENCOUNTER → 2023-02-15 10:36 | Outpatient (BNVA) | payer OTHER, SELFPAY | PROVIDERS: PCP Family Medicine; Visit Provider Family Medicine | DX: I42.8 Other cardiomyopathies (principal); I48.0 Paroxysmal atrial fibrillation; I10 Essential (primary) hypertension | CPT/HCPCS: 80053; 83735; 84443 ==

== ENCOUNTER → 2025-06-03 15:58 | Outpatient (BNVA) | payer BC, SELFPAY | PROVIDERS: PCP Family Medicine; Visit Provider Family Medicine | DX: D64.9 Anemia, unspecified (principal) | CPT/HCPCS: 85025 ==